=== PATIENT | female | born 1955 | race Caucasian/White ===

== ENCOUNTER 2024-09-30 06:54 | Emergency (ER) | payer OTHER, SELFPAY ==
--- NOTE | ~2024-09-30 | US_ITS ---
EXAMINATION: US pelvic complete DATE: 09/30/2024 08:40 INDICATION: Postmenopausal vaginal bleeding. TECHNIQUE: Multiple transabdominal and transvaginal sonographic images of the pelvis were obtained. COMPARISON: None. FINDINGS: TRANSABDOMINAL ULTRASOUND: The uterus measures 8.0 x 3.3 x 4.4 cm. There is no free fluid in the pelvis. TRANSVAGINAL ULTRASOUND: The endometrial complex measures 16 mm in thickness. There are nabothian cysts in the cervix. The rig ht ovary is not visualized. The left ovary is not visualized. IMPRESSION: 1. Thickened endometrial complex. The differential diagnosis includes endometrial hyperplasia, polyp, and carcinoma. Biopsy is recommended. Reviewed, dictated and finalized at location [] IMPRESSION: 1. Thickened endometrial complex. The differential diagnosis includes endometri al hyperplasia, polyp, and carcinoma. Biopsy is recommended.
[2024-09-30 07:04] VITALS: BP 159/70; PULSE 78; RESP 20; TEMP 36.7; O2SAT 98
[2024-09-30 07:53] LABS: Basophils Percent Auto 0.3 % (0.2-1.2); Eosinophils Absolute Auto 0.1 K/mm3 (0-0.3); Eosinophils Percent Auto 0.9 % (0-4.4); Hematocrit 48.2 % (37.0-47.0); Hemoglobin 15.6 g/dL (12.0-15.0); Immature Granulocyte Absolute 0.05 K/mm3 (0.00-0.031); Immature Granulocyte Percent A 0.5 % (0-0.5); Mean Corpuscular HGB Conc 32.4 g/dl (32-36); Mean Corpuscular Hemoglobin 29.3 pg (26-34); Mean Corpuscular Volume 90.6 fl (80-100); Monocytes Absolute Auto 0.5 K/mm3 (0.1-0.6); Neutrophils Absolute Auto 5.9 K/mm3 (1.3-6.7); Neutrophils Percent Auto 63.3 % (45.5-73.1); Platelet Count Result 200 k/mm3 (150-375); Red Blood Count 5.32 M/mm3 (4.2-5.4); Red Cell Distribution Width 14.4 % (11.5-14.5); White Blood Count 9.3 K/mm3 (4.5-10.0)
[2024-09-30 08:11] LABS: Alanine Aminotransferase 18 U/L (6-35); Albumin Level 4.3 g/dL (3.5-5.1); Alkaline Phosphatase 60 U/L (38-126); Anion Gap 8 mmol/L (4-12); Aspartate Amino Transferase 18 U/L (14-36); Bilirubin,Total 0.5 mg/dL (0.2-1.3); Blood Urea Nitrogen 15 mg/dL (7-17); Calcium 9.3 mg/dL (8.4-10.2); Carbon Dioxide 29 mmol/L (22-30); Chloride 102 mmol/L (98-107); Estimated CRCL calculation 113 ml/min; Estimated Glomerular Filt Rate > 60; Glucose 143 mg/dL (65-110); Potassium 3.9 mmol/L (3.4-5.0); Sodium 139 mmol/L (137-145)
[2024-09-30 08:14] LABS: INR 0.9; Prothrombin Time 12.7 Seconds (11.1-14.7)
[2024-09-30 08:17] LABS: Partial Thromboplastin Time 28.9 Seconds (22.3-36.8)
--- NOTE | 2024-09-30 08:59 | ED.GENADULT ---
HPI - General Adult General Chief complaint: Vaginal Bleeding Stated complaint: no cycle in 15 years; bloody discharge Time Seen by Provider: 09/30/24 07:02 History of Present Illness HPI narrative: 69-year-old female presenting to the emergency department for evaluation for vaginal bleeding that started this morning. Patient is 15 years postmenopausal and does not have a current OB Gyne. Patient states this morning when she went to use the bathroom she noticed some blood after wiping, patient noticed more blood in the bowl and patient stated the blood was vaginal night urinary. Patient had episode last week where she did pass some vaginal mucus and felt a pain similar to ovulation. Related Data Allergies Allergy/AdvReac Type Severity Reaction Status Date / Time adhesive tape AdvReac Other Verified 09/30/24 07:21 iohexol AdvReac Hives Verified 09/30/24 07:21 [From contrast - CT, X-RAY] Review of Systems Review of Systems: All systems reviewed & are unremarkable except as noted in HPI and below Exam Narrative: APPEARANCE: Well appearing, no pain, no distress, well-nourished. HEAD: normocephalic, atraumatic. EYES: PERRLA/EOMI, conjunctivae clear. NOSE: Normal no drainage EARS:TMS clear with good light reflex. THROAT: Pharynx clear, no exudate. NECK: Supple. No adenopathy, no masses. RESPIRATORY: Airway patent, respirations nonlabored. Clear to auscultation bilaterally, no rales, rhonchi, wheezing. CARDIOVASCULAR: Regular rate and rhythm without murmurs rubs or gallops. ABDOMINAL: Soft, nontender, nondistended, normal bowel sounds MUSCULOSKELETAL: Moves all extremities. Strength/ROM intact, No edema, No calf tenderness. NEURO: Alert. Cranial nerves II through XII intact. Grossly intact SKIN: Warm, dry. Normal Color Course Course Emergency Course: Patient was updated the results of the workup and patient will have close outpatient follow-up with OB Gyne. Vital Signs Vital signs: Vital Signs Temperature 98.1 F 09/30/24 07:04 Pulse Rate 78 09/30/24 07:04 Respiratory Rate 20 09/30/24 07:04 Blood Pressure 159/70 H 09/30/24 07:04 Pulse Oximetry 98 09/30/24 07:04 Oxygen Delivery Room Air 09/30/24 07:04 Temperature 98.1 F 09/30/24 07:04 Pulse Rate 78 09/30/24 07:04 Respiratory Rate 20 09/30/24 07:04 Blood Pressure 159/70 H 09/30/24 07:04 Pulse Oximetry 98 09/30/24 07:04 Oxygen Delivery Room Air 09/30/24 07:04 Medical Decision Making MDM Narrative Medical decision making narrative: 69-year-old female presented to the emergency department for evaluation for vaginal bleeding. Patient is afebrile with no leukocytosis and hemoglobin of 15.6. No acute abnormalities on her CMP and INR is 0.9. Ultrasound does show thickened endometrial lining versus polyp versus carcinoma. Patient was updated the results of the labs and ultrasound and patient was strongly encouraged to have close follow-up with OB Gyne and was educated on reasons to return to the emergency department. All questions concerns were addressed. Differential Diagnosis Differential Diagnosis: Carcinoma, polyp, infection, abscess, hyperplasia, anemia Vital Signs Vital Signs: Vital Signs Temperature 98.1 F 09/30/24 07:04 Pulse Rate 78 09/30/24 07:04 Respiratory Rate 20 09/30/24 07:04 Blood Pressure 159/70 H 09/30/24 07:04 Pulse Oximetry 98 09/30/24 07:04 Oxygen Delivery Room Air 09/30/24 07:04 Temperature 98.1 F 09/30/24 07:04 Pulse Rate 78 09/30/24 07:04 Respiratory Rate 20 09/30/24 07:04 Blood Pressure 159/70 H 09/30/24 07:04 Pulse Oximetry 98 09/30/24 07:04 Oxygen Delivery Room Air 09/30/24 07:04 Lab Data Lab results reviewed: Yes I reviewed the patient's lab results. 09/30/24 07:47 09/30/24 07:46 Labs: Lab Results 09/30/24 09/30/24 Range/Units 07:46 07:47 WBC 9.3 (4.5-10.0) K/mm3 RBC 5.32 (4.2-5.4) M/mm3 Hgb 15.6 H (12.0-15.0) g/dL Hct 48.2 H (37.0-47.0) % MCV 90.6 (80-100) fl MCH 29.3 (26-34) pg MCHC 32.4 (32-36) g/dl RDW 14.4 (11.5-14.5) % Plt Count 200 (150-375) k/mm3 MPV 9.0 (7.4-10.4) fl Immature Gran % (Auto) 0.5 (0-0.5) % Neut % (Auto) 63.3 (45.5-73.1) % Lymph % (Auto) 30.0 (18.3-44.2) % [place] % (Auto) 5.0 (2.6-8.5) % Eos % (Auto) 0.9 (0-4.4) % Baso % (Auto) 0.3 (0.2-1.2) % Lymph # (Auto) 2.80 (0.9-3.2) K/mm3 [place] # (Auto) 0.5 (0.1-0.6) K/mm3 Eos # (Auto) 0.1 (0-0.3) K/mm3 Baso # (Auto) 0.0 (0.0-0.1) K/mm3 Abs Immat Gran (auto) 0.05 H (0.00-0.031) K/mm3 Absolute Neuts (auto) 5.9 (1.3-6.7) K/mm3 Absolute Nucleated RBC 0.000 (0.0-0.012) K/mm3 Nucleated RBC % 0.0 (0.0-0.2) % PT 12.7 (11.1-14.7) Seconds INR 0.9 APTT 28.9 (22.3-36.8) Seconds Sodium 139 (137-145) mmol/L Potassium 3.9 (3.4-5.0) mmol/L Chloride 102 (98-107) mmol/L Carbon Dioxide 29 (22-30) mmol/L Anion Gap 8 (4-12) mmol/L BUN 15 (7-17) mg/dL Creatinine 0.50 L (0.7-1.0) mg/dL Estim Creat Clear Calc 113 ml/min Estimated GFR > 60 (59 - ) Glucose 143 H (65-110) mg/dL Calcium 9.3 (8.4-10.2) mg/dL Total Bilirubin 0.5 (0.2-1.3) mg/dL AST 18 (14-36) U/L ALT 18 (6-35) U/L Alkaline Phosphatase 60 (38-126) U/L Total Protein 8.0 (6.3-8.2) g/dL Albumin 4.3 (3.5-5.1) g/dL Imaging Data Radiologist's impression: Impressions Pelvis Ultrasound 09/30/24 09:00 IMPRESSION: 1. Thickened endometrial complex. The differential diagnosis includes endometrial hyperplasia, polyp, and carcinoma. Biopsy is recommended. Discharge Plan Discharge Clinical Impression: Vaginal bleeding Patient Disposition: Home, Self-Care Condition: Stable Instructions: Antibiotic Form, Abnormal (Dysfunctional) Uterine Bleeding (ED) Additional Instructions: Drink plenty of fluids. Follow a well-balanced diet. Have close follow-up with OB Gyne for an anticipated endometrial biopsy. If you have any worsening symptoms then please call or return to the emergency department. Have close follow-up with your primary care physician. Follow-up/Referrals: Rahat Jean Baptiste MD [Physician] - UNKNOWN,DOCTOR [Primary Care Provider] -
== END 2024-09-30 09:45 | disposition home or self-care (01) ==
PROVIDERS: Emergency Provider Emergency Medicine
DX: N95.0 Postmenopausal bleeding (principal); R93.89 Abnormal findings on diagnostic imaging of other specified body structures
CPT/HCPCS: 36415; 76856; 80053; 85025; 85610; 85730; 99284

== ENCOUNTER 2024-10-08 00:39 | Day surgery (SDC) | payer OTHER, SELFPAY ==
[2024-10-07 12:22] VITALS: BMI 36.9
--- NOTE | 2024-10-07 12:45 | PC.NURSE ---
Report to the Outpatient Waiting Room, entrance under the green pavilion located off [facility], at time ___8:45AM____ on date ___10/08/24____. Planned Procedure Time: ___10:45AM .? Time changes happen often and if your time is changed the preop area will call you the afternoon before. - You and your visitor will be asked to self-screen and do not enter if you have any COVID symptoms. Please call surgeon if you need to reschedule. - A mask is optional within the hospital at this time. Patients may have clear liquids (water, carbonated beverages, clear teas, apple juice) until 3 hours prior to surgery with a maximum of 20 ounces. - No food from midnight until time of surgery and no smoking - Infants may have breast milk until 4 hours before surgery, formula 6 hours prior to surgery. - Children will be allowed to drink immediately following surgery.? If applicable, please bring a bottle or sippy cup to assist with drinking. Juice, water, soda, and popsicles are readily available.? For infants on formula, please bring formula the day of surgery.? Pacifiers are allowed. Take only the following medications with a SIP of water on the morning of surgery: LEVOTHYROXINE, METOPROLOL DO NOT STOP ANY OF YOUR OTHER PRESCRIPTION MEDICATIONS PRIOR TO SURGERY EXCEPT THE FOLLOWING Medications to discontinue per physician HOLD ALL VITAMINS/SUPPLEMENTS STARTING NOW PER ANESTHESIA. Date to take last dose 10/08/24 Please no make-up, nail kinyarwanda, hairspray, perfume, deodorant, or body powder the day of surgery.? No jewelry (including any body piercings) or valuables the day of surgery, leave them at home.? Please take a shower or bath the night before, or the morning of, surgery with an antibacterial soap.? Wear comfortable, loose fitting clothing.? Children are encouraged to wear pajamas. - Jewelry must be removed prior to entering the operating room.? Rings and piercings that are not removed may be cut off. - The hospital will not accept responsibility for valuables.? - Please leave all valuables, including medications, at home the day of surgery. If you are going home after surgery, a licensed driver helper must drive you home.? - NO public transportation without another adult if you receive anesthesia. - We recommend that an adult stay with you for 24 hours following discharge. - We also recommend that you do not drive, make important decision, drink alcoholic beverages, or take any drugs that were not prescribed by your health care provider for at least 24 hours after your discharge time. For Pediatric surgeries, we recommend two adults accompany the child home. Follow any additional instructions given to you from your surgeon. Telephone instructions given to ____PATIENT and asked if any additional questions and then verbalized understanding. Patient advised to call surgeon office or pre surgery nurse liaison [phone] if any additional questions.
--- NOTE | 2024-10-08 07:20 | WPDHPUPDATE1 ---
History and Physical Update Update Date/Time: 10/08/24 07:20 History and Physical has been reviewed, including an updated exam of the patient. There are NO changes in the patient's condition. Risks, benefits, and alternatives have been discussed and questions answered. Patient agrees to proceed with procedure.
[2024-10-08 08:46] VITALS: BP 141/75; PULSE 71; RESP 16; TEMP 36.2; O2SAT 96
[2024-10-08 08:50] VITALS: BMI 36.8
--- NOTE | 2024-10-08 09:19 | WPDANESEPPF ---
Anes - Initial Pre Proc Eval Procedure: Operation Date: 10/08/24 10:45 Proposed Procedures p Hysteroscopy Dilation and Curettage - Rahat Jean Baptiste MD Date/Time: 10/08/24 09:19 Surgeon: Rahat Jean Baptiste MD Pre Op Diagnosis: post menopausal bleeding Patient Data Age: 69 Gender: F Height: 1.7 m Weight: 107 kg Allergies Allergy/AdvReac Type Severity Reaction Status Date / Time adhesive tape AdvReac REDNESS, Verified 10/07/24 12:13 SKIN IRRITATION iohexol AdvReac Hives Verified 10/07/24 12:13 [From contrast - CT, X-RAY] Home Medications Medication Instructions Recorded Confirmed Type aspirin 325 mg tablet 325 mg PO DAILY 10/02/24 10/07/24 History cholecalciferol (vitamin D3) 50 See Rx Instructions .Route .COMPLEX 10/02/24 10/07/24 History mcg (2,000 unit) capsule icosapent ethyl 1 gram capsule 2 g PO BID 10/02/24 10/07/24 History (Vascepa) levothyroxine 150 mcg tablet 150 mcg PO DAILY 10/02/24 10/07/24 History lisinopril 40 mg tablet 40 mg PO QAM 10/02/24 10/07/24 History metoprolol tartrate 25 mg tablet 12.5 mg PO BID 10/02/24 10/07/24 History montelukast 10 mg tablet 10 mg PO DAILY 10/02/24 10/07/24 History rosuvastatin 40 mg tablet 40 mg PO DAILY 10/02/24 10/07/24 History nitrofurantoin 100 mg PO Q12H #14 caps 10/06/24 10/07/24 Rx monohydrate/macrocrystals 100 mg capsule (Macrobid) cetirizine 10 mg capsule (Zyrtec) 10 mg PO DAILY 10/07/24 10/07/24 History tkrgdplaszg-[id number]-hmj C-Mn 500 2 cap PO HS 10/07/24 10/07/24 History mg-400 mg capsule indapamide 1.25 mg tablet 1.25 mg PO QAM 10/07/24 10/07/24 History Patient hx anesthesia problems: none Family hx anesthesia problems: none Results Review: All pre-operative results and documents have been reviewed as part of the pre-operative evaluation. PMFSH Past Medical History Medical History (Updated 10/08/24 @ 09:19 by Florentino Tripp MD) CAD (coronary artery disease) High cholesterol History of hypertension Thyroid disease Surgical History Surgical History H/O thyroidectomy (~06/2022) S/P triple vessel bypass (2018) Family History Family History Mother Heart disease Sibling Acute myocardial infarction, Onset Age: 40 brother COPD (chronic obstructive pulmonary disease) Grandparent COPD (chronic obstructive pulmonary disease) Social History Social History Smoking packs per day: 0.30 Smoking cigarettes per day: 6.0 Years smoked: 15 Smoking pack-years: 4.50 Smoking status: Former smoker Tobacco type: cigarettes Second hand tobacco smoke exposure: No Smoking end date: 06/01/12 Alcohol intake: current Alcohol use details: occassional Substance use: never Substance use type: does not use Do You Feel Safe in your Home?: Yes Lack of Transportation: No Lack of Food: Never True Current Housing: I Have Housing Concerned About Future Housing: No Difficulty Paying Gas/Electric Bills: No Difficulty Paying for Meds: No Currently Unemployed: No Education: High School Diploma/GED Difficulty w/ Childcare or Family Care: No Living arrangements: with family Additional living arrangements comments: SPOUSE Occupation/Education: occupation 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 [employer] Gender identity (if verbalized by the patient): Female Sexual Orientation (if Verbalized by the Patient): Lesbian, Tony, or Homosexual Spiritual care concerns: No Anes - Eval Final PreProcedure Day of Procedure 10/08/24 09:19 Patient weight: obese Heart: regular rate and rhythm Lungs: clear to auscultation Airway: Mallampati scale class II Neurological: alert and oriented Last oral intake: >/= 8 hours ASA classification: III Emergent: no Anesthetic plan: proceed Anesthesia type and monitoring: general GIVS Results Review: All pre-operative results and documents have been reviewed as part of the pre-operative evaluation. Informed Consent: The patient's anesthetic plan and its attendant risks and benefits were discussed with the patient/family/POA. Questions were solicited and answers provided to the satisfaction of the patient/family/POA.
[2024-10-08] MEDS: LACTATED RINGERS 1,000 ML 30 ML IV CONT (09:50)
[2024-10-08] MEDS: ACETAMINOPHEN 500 MG TABLET 1000 MG PO (09:57)
--- NOTE | 2024-10-08 11:02 | W.PM.PROC2 ---
Procedure Note - Detailed Date of Procedure 10/08/24 Pre-op Diagnosis 1. Post menopausal bleeding Post-op Diagnosis Same (2. Endometrial polyp) Procedure Performed 1. Hysteroscopy with uterine curettings 2. Hysteroscopic polypectomy Surgeon Rahat Jean Baptiste MD Anesthesia MAC Findings 1. Endometrial polyp 2. Hypervascularity throughout cavity Description of Procedure Patient prepped and draped usual manner for this procedure. Cervix was dilated to allow the hysteroscope to be placed. Findings were noted as above. Using the shaving instrument the polyp was removed as well as a superficial sampling of all 4 quadrants of the entire cavity. At this point the procedure was considered terminated patient was sent to recovery room in stable condition. Estimated Blood Loss 10 Drains No Packing No Pathology Yes Complications No immediate complications Condition Stable Disposition PACU [facility] Billing Surgery - Charge Forward: Surgery Billing
[2024-10-08 11:08] VITALS: BP 124/67; PULSE 67; RESP 14; O2SAT 96
[2024-10-08 11:35] VITALS: BP 116/82; PULSE 52; RESP 16
[2024-10-08] MEDS: oxyCODONE HCL (*CRX) 5 MG TAB IR PO (11:48)
[2024-10-08 12:05] VITALS: BP 126/64; PULSE 60; RESP 16
[2024-10-08 12:31] VITALS: BP 129/62; PULSE 49; RESP 18
== END 2024-10-08 12:34 | disposition home or self-care (01) ==
PROVIDERS: PCP Internal Medicine; Visit Provider Obstetrics & Gynecology
PROC: 0U5B8ZZ Destruction of Endometrium, Via Natural or Artificial Opening Endoscopic (ICD-10-PCS; CPT 58563; principal; 2024-10-08 10:45)
DX: C54.1 Malignant neoplasm of endometrium (principal); E78.00 Pure hypercholesterolemia, unspecified; I10 Essential (primary) hypertension; E07.9 Disorder of thyroid, unspecified; I25.10 Atherosclerotic heart disease of native coronary artery without angina pectoris; E66.9 Obesity, unspecified; Z68.36 Body mass index [BMI] 36.0-36.9, adult; Z79.82 Long term (current) use of aspirin; Z98.890 Other specified postprocedural states; Z95.1 Presence of aortocoronary bypass graft; Z87.891 Personal history of nicotine dependence; Z86.79 Personal history of other diseases of the circulatory system; Z82.49 Family history of ischemic heart disease and other diseases of the circulatory system
CPT/HCPCS: 58558; 88305; 88342; A9270; J2003; J2250; J2704; J3010; J7120

== ENCOUNTER 2025-03-07 10:47 | Emergency (ER) | payer OTHER, SELFPAY ==
[2025-03-07] VITALS (20 sets, daily range): BP systolic 104–150; BP diastolic 52–69; PULSE 55–72; RESP 14–20; TEMP 36.6; O2SAT 92–98
--- NOTE | ~2025-03-07 | XR_ITS ---
XR chest 2V Ordering provider: Ronald Merritt History: 70 years Female with . CP . Comparison: None. FINDINGS: MEDIASTINUM: The cardiac silhouette is not enlarged. Postoperative changes are seen in the mediastinum. LUNGS: No infiltrates, effusions or pneumothorax. OTHER: No free air under the diaphragm. IMPRESSION: No acute cardiopulmonary pathology. Reviewed, dictated and finalized at location A.
--- NOTE | 2025-03-07 10:49 | ECG_ITS ---
Test Date: 2025-03-07 10:55:11 Measurements Intervals [place] Rate: 69 P: 69 ID: [id number] QRS: -15 QRSD: 132 T: 42 QT: 417 QTc: 448 Interpretive Statements SINUS RHYTHM RIGHT BUNDLE BRANCH BLOCK CONSIDER ANTERIOR INFARCT, AGE INDETERMINATE CONSIDER INFERIOR INFARCT, AGE INDETERMINATE BASELINE ARTIFACT- II, III, V4-V6 ABNORMAL ECG No previous ECG available for comparison Electronically Signed On 03-07-2025 12:10:16 CDT by Moses Myers D.O.
--- OUTSIDE RECORDS SUMMARY | 2025-03-07 10:50 | XMS_ITS | Encounter Summary ---
Author Organization [facility] Address [address] [place] [address] Care Team Providers Care Contract Officer Name Role Phone Álvaro Darby MD Primary Care Provider [phone] Encounter Details Date Type Department Care Team (Late st Contact Info) Description 03/03/2024 Lab Requisition [facility] - DermPath Lab [address] [place] [address] Danielle Wheat MD [address] [place] [address] Social History Tobacco Use Types Packs/Day Years Used Date Smoking Tobacco: Former Smokeless Tobacco: Never Sex and Gender Information Value Date Recorded Sex Assigned at Not on file Gender Identity Not on file Sexual Orientation Not on file documented as of this encounter Plan of Treatment Not on file documented as of this encounter Procedures Procedure Name Priority Date/Time Associated Diagnosis Comments DERMATOPATHOLOGY Routine 03/03/2024 2:33 PM CDT documented in this encounter Results * DERMATOPATHOLOGY (03/03/2024 2:33 PM CDT) Case Report Dermatopathology Report Case: [id number] Authorizing Provider: Danielle Wheat MD Collected: 03/03/2024 02:33 PM Ordering Location: [facility] - Received: 03/04/2024 12:21 PM DermPath Lab Pathologist: Catrachita Hall MD Specimen: Skin, left mosque 1:29 PM CDT DERMATOPATHOLOGY LABORATORY Final Diagnosis Specimen A. SKIN, left mosque: SQUAMOUS CELL CARCINOMA, MODERATELY DIFFERENTIATED (C44.329) 1:29 PM CDT DERMATOPATHOLOGY LABORATORY Clinical History R/O NMSC, Growing, Irritated 1:29 PM CDT DERMATOPATHOLOGY LABORATORY Gross Description Specimen A: Received is one formalin filled container labeled with the patient's name and designated left mosque. The specimen consists of a shave biopsy measuring 7x6x2 mm. Jar 0. 1:29 PM CDT DERMATOPATHOLOGY LABORATORY Microscopic Description Specimen A. SKIN, left mosque: There are nests of squamous epithelial cells which arise from the ulcerated epidermis and extend into the dermis. The nests have only focal central keratinization and rare horn feliciano formation. 1:29 PM CDT DERMATOPATHOLOGY LABORATORY Disclaimer An external and internal positive and negative controls are appropriate for the histochemical, immunohistochemical and immunofluorescence stain(s) in this case (if any), except where stated explicitly. The performance characteristics of the stain(s) cited in this report were developed and its performance characteristic determined by the Dermatopathology Laboratory at [facility], directed by Dr. Delma Brewster. These tests need not be, and therefore are not, approved by the [place] Food and Drug Administration. The tests are used for clinical purposes. Billing Codes Specimen Charges Stain Charges 96982 1 1:29 PM CDT DERMATOPATHOLOGY LABORATORY Embedded Images 1:29 PM CDT DERMATOPATHOLOGY LABORATORY Pathology/Cytolo gy TISSUE SPECIMEN FROM SKIN / Unknown 03/03/2024 2:33 PM CDT 03/04/2024 12:21 PM CDT Danielle Wheat MD LAB - PATHOLOGY/CYT OLOGY ORDERABLES DERMATOPATHOLOGY LABORATORY [facility] - Department of Dermatology [address], [address] [phone] documented in this encounter Visit Diagnoses Not on filedocumented in this encounter Care Teams Contract Officer Relationship Specialty Start Date End Date Álvaro Darby MD PCP - General Internal Medicine 03/07/17 documented as of this encounter
--- OUTSIDE RECORDS SUMMARY | 2025-03-07 10:50 | XMS_ITS | Encounter Summary ---
Author Organization [facility] Address [address] [place] [address] Phone Care Team Providers Care Barrel Charrer Name Role Phone Álvaro Darby MD Primary Care Provider [phone] Fabian Matute MD Unavailable [phone] Álvaro Darby MD Primary Care Provider [phone] Rahat Jean Baptiste MD Unavailable [phone] Encounter Details Date Type Department Care Team (Late st Contact Info) Description 01/22/2018 Orders Only [facility] ProviderNorm MD [address] [place] [address] Social History Tobacco Use Types Packs/Day Years Used Date Smoking Tobacco: Former Cigarettes 0.5 35 0 06/24/1977 - 06/24/2012 Smokeless Tobacco: Never Comments:Smoking History Pac ks/day: 0.5 Packs Alcohol Use Standard Drinks/Week Comments Yes 0 (1 standard drink = 0.6 oz pur e alcohol) Comments No Sex and Gender Information Value Date Recorded Sex Assigned at Not on file Legal Sex Female 11:50 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 us Historical Provider LAB BLOOD ORDERABLES Digna l Result documented in this encounter Visit Diagnoses Not on filedocumented in this encounter Additional Health Concerns Infection Onset Date Last Indicated Resolved Time COVID: Suspected 11/02/2021 11/02/2021 11/02/2021 8:45 AM MONEY ROOM SUPERVISOR COVID19 11/02/2021 11/02/2021 11/16/2021 3:05 AM MONEY ROOM SUPERVISOR COVID: Recovered Comment:Added based on recent COVID infection. 11/16/2021 01/12/2022 03/16/2022 3:05 AM C DT COVID: Suspected 05/27/2024 05/27/2024 05/27/2024 3:48 PM CDT documented as of this encounter Care Teams Barrel Charrer Relationship Specialty Start Date End Date Álvaro Darby MD PCP - General 03/01/17 10/08/24 Álvaro Darby MD [address] [facility] [address] [place] [address] PCP - General Internal Medicine 10/09/24 Fabian Matute MD [address] [place] [address] [facility] [address] [place] [address] Consulting Physician Endocrinology 02/07/22 Rahat Jean Baptiste MD [address] [facility] [address] [place] [address] Referring Physician Obstetrics and Gynecology 12/23/24 documented as of this encounter
--- OUTSIDE RECORDS SUMMARY | 2025-03-07 10:50 | XMS_ITS | Encounter Summary ---
Author Organization [facility] Address [address] [place] [address] Care Team Providers Care Check Writer Name Role Phone Álvaro Darby MD Primary Care Provider [phone] Encounter Details Date Type Department Care Team (Late st Contact [facility]) Description 03/04/2025 Lab Requisition [facility] - DermPath Lab [address] [facility] [place] [address] Raquel Negrete MD [address] [facility] [address] [place] [address] Social History Tobacco Use Types Packs/Day Years Used Date Smoking Tobacco: Former Smokeless Tobacco: Never Sex and Gender Information Value Date Recorded Sex Assigned at Not on file Gender Identity Not on file Sexual Orientation Not on file documented as of this encounter Plan of Treatment Pending Results Name Type Priority Associated Diagnoses Date /Time DERMATOPATHOLOGY Pathology Cytology Routine 03/04/2025 10:37 AM CDT documented as of this encounter Visit Diagnoses Not on filedocumented in this encounter Care Teams Check Writer Relationship Specialty Start Date End Date Álvaro Darby MD PCP - General Internal Medicine 03/07/17 documented as of this encounter
--- OUTSIDE RECORDS SUMMARY | 2025-03-07 10:50 | XMS_ITS | Encounter Summary ---
Author Organization [facility] [employer] [facility] Address [address] [place] [address] Phone Care Team Providers Care Balloon Artist Name Role Phone Álvaro Darby MD Primary Care Provider [phone] Fabian Matute MD Unavailable [phone] Álvaro Darby MD Primary Care Provider [phone] Rahat Jean Baptiste MD Unavailable [phone] Encounter Details Date Type Department Care Team (Late st Contact Info) Description 12/16/2017 Orders Only [facility] ProviderNorm MD [address] [place] [address] Social History Tobacco Use Types Packs/Day Years Used Date Smoking Tobacco: Former Cigarettes 0.5 35 0 06/24/1977 - 06/24/2012 Smokeless Tobacco: Never Comments:Smoking History Pac ks/day: 0.5 Packs Alcohol Use Standard Drinks/Week Comments Yes 0 (1 standard drink = 0.6 oz pur e alcohol) Comments Unknown Sex and Gender Information Value Date Recorded Sex Assigned at Not on file Legal Sex Female 11:50 PM [employer] Gender Identity Female 09/15/2021 10:22 AM CDT Sexual Orientation Lesbian 09/15/2021 10 :22 AM CDT documented as of this encounter Plan of Treatment Not on file documented as of this encounter Procedures Procedure Name Priority Date/Time Associated Diagnosis Comments DISCHARGE 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 us Historical Provider LAB BLOOD ORDERABLES Digna l Result documented in this encounter Visit Diagnoses Not on filedocumented in this encounter Additional Health Concerns Infection Onset Date Last Indicated Resolved Time COVID: Suspected 11/02/2021 11/02/2021 11/02/2021 8:45 AM [employer] COVID19 11/02/2021 11/02/2021 11/16/2021 3:05 AM [employer] COVID: Recovered Comment:Added based on recent COVID infection. 11/16/2021 01/12/2022 03/16/2022 3:05 AM C DT COVID: Suspected 05/27/2024 05/27/2024 05/27/2024 3:48 PM CDT documented as of this encounter Care Teams Balloon Artist Relationship Specialty Start Date End Date Álvaro Dabry MD PCP - General 03/01/17 10/08/24 Álvaro Darby MD [address] [facility] [address] [address] PCP - General Internal Medicine 10/09/24 Fabian Matute MD [address] [place] [address] [facility] [address] [place] [address] Consulting Physician Endocrinology 02/07/22 Rahat Jean Baptiste MD [address] [facility] [address] [place] [address] Referring Physician Obstetrics and Gynecology 12/23/24 documented as of this encounter
--- OUTSIDE RECORDS SUMMARY | 2025-03-07 10:50 | XMS_ITS | Referral Summary ---
Author Organization [facility] Address [address] [place] [address] Care Team Providers Care [employer] Station Service Attendant Name Role Phone Fabian Matute MD Unavailable [phone] Earle Darby MD Primary Care Provider [phone] Rahat Jean Baptiste MD Unavailable [phone] Encounters Date Type Department Care Team Description 03/02/2025 1:30 PM CDT Office Visit [facility] Primary Care at [facility] [address] [phone] Earle Darby MD Healthcare maintenance (Primary Dx); Primary hypertension; Type 2 diabetes mellitus with hyperlipidemia (HCC); Hyperlipidemia, unspecified hyperlipidemia type; Coronary artery disease involving [place] coronary artery of [place] heart with angina pectoris; Postoperative hypothyroidism; Heart murmur 01/11/2025 6:10 AM MATCHER OPERATOR Lab [address] [phone] Screening for blood disease; Type 2 diabetes mellitus with hyperlipidemia (HCC); Postoperative hypothyroidism 12/24/2024 3:44 PM MATCHER OPERATOR - 12/24/2024 11:59 PM MATCHER OPERATOR Hospital Encounter [facility] [address] [place] [id number] Endometrial cancer (HCC) Discharge Disposition: Discharge to home or self care 12/24/2024 Orders Only [facility] Gynecologic [facility]) [address] [place] [address] [place] [address] Swetha Kurtz RN Endometrial cancer (HCC) (Primary Dx) 12/24/2024 3:00 PM MATCHER OPERATOR Office Visit [facility] Obstetrics and Gynecology [address] [facility] [address] [place] [address] [place] [phone] Lexy Wagner NP Post-operative state (Primary Dx); Endometrial cancer (HCC) 12/10/2024 9:30 AM MATCHER OPERATOR Office Visit [facility] Cardiology [address] [facility] [address] 8[address] [place] [address] [place] [phone] Ronald Craig MD S/P CABG (coronary artery bypass graft) (Primary Dx); Essential hypertension; Hyperlipidemia, unspecified hyperlipidemia type from Last 3 Months Allergies Active Allergy Reactions Criticality Noted Date Comments Adhesive Tape-Silicones Other (See comments) Low TEARS SKIN. Iodinated Contrast Media Hives,Rash Medium 04/18/2022 Iodine And Iodide Containing Products Hives,Rash Medium Reaction: Rash, Medications cholecalcifero l (VITAMIN D3) 2,000 unit capsule 1 po q day 0 0 10/13/20 13 Active glucosamine HCl 1,500 mg tabletIndicati ons:supplement Take 3,000 mg by mouth nightly Active aspirin 81 mg tabletIndicati ons:acute myocardial infarction,pre vention of thrombosis Take 1 tablet (81 mg total) by mouth every morning Active valACYclovir (VALTREX) 1 gram tabletIndicati ons:Prophylaxi s, Medical Take 2 tablets (2,000 mg total) by mouth as needed (cold sores) Active calcium carbonate/jesenia thicone (MAALOX ADVANCED ORAL)Indicatio ns:GERD Take 30 mL by mouth as needed (acid reflux) Active cetirizine (ZyrTEC) 10 mg tabletIndicati ons:Allergic Rhinitis Take 1 tablet (10 mg total) by mouth every morning Active metoprolol tartrate (LOPRESSOR) 25 mg immediate release tablet TAKE ONE-HALF TABLET BY MOUTH TWICE DAILY 90 tablet 3 07/17/20 24 Active levothyroxine (SYNTHROID) 150 mcg tablet Take 1 tablet (150 mcg total) by mouth binding bench worker before breakfast 90 tablet 3 07/20/20 24 Active Vascepa 1 gram capsule Take 2 capsules (2 g total) by mouth 2 (two) times a day 400 capsule 3 10/26/20 24 Active oxyCODONE (ROXICODONE) 5 mg immediate release tabletIndicati ons:Pain Take 1 tablet (5 mg total) by mouth every 4 (four) hours as needed for pain 15 tablet 11/16/20 24 Active polyethylene glycol (MIRALAX) 17 gram/dose bulk powder Take 17 g by mouth 2 (two) times a day for 7 days 238 g 11/16/20 24 Active lisinopriL (PRINIVIL,ZEST RIL) 40 mg tablet TAKE 1 TABLET BY MOUTH IN THE MORNING 90 tablet 3 12/17/19 25 Active montelukast (SINGULAIR) 10 mg tablet TAKE 1 TABLET BY MOUTH AT NIGHT 90 tablet 3 02/03/20 25 Active indapamide (LOZOL) 1.25 mg tablet TAKE 1 TABLET BY MOUTH IN THE MORNING 90 tablet 3 02/03/20 25 Active rosuvastatin (CRESTOR) 40 mg tablet TAKE 1 TABLET BY MOUTH DAILY 90 tablet 3 02/19/20 25 Active rosuvastatin (CRESTOR) 40 mg tablet TAKE 1 TABLET BY MOUTH DAILY 100 tablet 1 08/28/20 24 025 Discontinued Active Problems Problem Noted Date Diagnosed Date Heart murmur 03/02/2025 Endometrial cancer 11/02/2024 Cancer Staging:Pathologic stage from 11/16/2024:FIGO Stage IA(pT1a, pN0(sn), cM0) - Signed by Elena Monreal MD on 11/26/2024 Polycythemia 12/06/2022 Assessment & Plan (12/06/2022 9:11 AM MATCHER OPERATOR): Repeat CBC in 6 months. Class 2 obesity with body ma ss index (BMI) of 35.0 to 35.9 in adult 12/06/2022 Assessment & Plan (12/06/2022 9:25 AM MATCHER OPERATOR): Patient is encouraged to lose weight with a combination of caloric reduction and increased exercise. Bilateral high frequency sensorineural hearing l oss 06/15/2022 Tinnitus of left ear 06/15/2022 Postoperative hypothyroidism 06/07/2022 Assessment & Plan (11/01/2024 8:00 PM MATCHER OPERATOR): Chronic stable Recommend to continue current dose of levothyroxine Recheck thyroid function test every 6 months Assessment & Plan (07/20/2024 2:27 PM CDT): Continue current dose of levothyroxine check TSH before next visit adjust dose based on results. Also refer to endocrinology for history of thyroidectomy for papillary microcarcinoma. Assessment & Plan (01/20/2024 2:35 PM MATCHER OPERATOR): Continue current dose of levothyroxine check TSH and FT4 before next visit and adjust medication based on results. Refer back to endocrinology if needed. Follow-up with her surgeon as they direct and get definitive monitoring recommendations going forward. Assessment & Plan (04/08/2023 8:58 AM CDT): Patient is clinically euthyroid TSH was 0.26 on 09/12/22 Plan: Continue same dose of Levothyroxine The proper way of taking Levothyroxine reviewed with patient. Check TSH. I will adjust the dose based on lab results. Assessment & Plan (10/08/2022 8:35 AM MATCHER OPERATOR): Patient is clinically euthyroid TSH was 0.26 on 09/12/22 Plan: Continue same dose of Levothyroxine The proper way of taking Levothyroxine reviewed with patient. Check TSH next visit. I will adjust the dose based on lab results. Assessment & Plan (06/07/2022 12:09 PM CDT): Patient is clinically euthyroid TSH was 0.0 with normal free T4 on 05/26/22 Plan: Continue same dose of Levothyroxine The proper way of taking Levothyroxine reviewed with patient. Check TSH in 4-6 weeks I will adjust the dose based on lab results. Personal history of colonic polyps 06/06/2022 Overview (06/06/2022): Added automatically from request for surgery [id number] Papillary microcarcinoma of thyroid 06/05/2022 Overview (06/05/2022): S/p excision 05/2022 Assessment & Plan (11/01/2024 8:01 PM MATCHER OPERATOR): MNG s/p total thyroidectomy on 05/09/22 Micro-papillary thyroid cancer Patient recently had a thyroid ultrasound, noted stable findings Assessment & Plan (04/08/2023 9:14 AM CDT): MNG s/p total thyroidectomy on 05/09/22 Micro-papillary thyroid cancer - we will monitor - she will have thyroid ultrasound next month with Dr. Hernandez. Assessment & Plan (10/08/2022 8:35 AM MATCHER OPERATOR): MNG s/p total thyroidectomy on 05/09/22 Micro-papillary thyroid cancer - we will monitor - she will have thyroid ultrasound in one year with Dr. Hernandez. Assessment & Plan (06/07/2022 12:10 PM CDT): MNG s/p total thyroidectomy on 05/09/22 Micro-papillary thyroid cancer - we will monitor - she will have thyroid ultrasound in one year with Dr. Hernandez. Graves disease 04/17/2022 Overview (04/17/2022): Added automatically from request for surgery [id number] Chronic pain of left knee 12/05/2021 Overview (12/05/2021): Dr Virk (ortho): reported loose body in left knee which may need to be removed Assessment & Plan (07/17/2023 12:03 PM CDT): Suspect hamstring strain versus tendinitis with her recent increase activities. Rest ice stretching exercises and call back if no improvement for consideration of orthopedic referral for this as well as her lateral pain which may stem from reported loose body in her left knee. Assessment & Plan (12/05/2021 9:17 AM MATCHER OPERATOR): Probably loose body or meniscal tear based on history. Currently asymptomatic. Recommend orthopedic referral if worsens. Gastroesophageal reflux disease without esophagi tis 11/01/2020 Assessment & Plan (11/01/2020 5:12 PM MATCHER OPERATOR): If becomes more frequent, would recommend Pepcid daily. Rotator cuff tendinitis, right 10/02/2019 Subacromial bursitis 10/02/2019 S/P thyroidectomy 08/27/2018 Overview (06/05/2022): Path with 2 papillary microacarcinomas Assessment & Plan (07/17/2023 12:02 PM CDT): Continue levothyroxine check TSH and free T4 before next visit and follow-up with endocrinology and her surgeon as they direct. Assessment & Plan (12/06/2022 9:11 AM MATCHER OPERATOR): Follow-up with Dr. Matute as he directs. Assessment & Plan (06/05/2022 9:06 AM CDT): F/u with surgeon and Dr Matute as they direct. Assessment & Plan (12/05/2021 9:16 AM MATCHER OPERATOR): Seems fairly asymptomatic and will check TSH and free T4 before next visit and refer to Endocrinology if necessary. Assessment & Plan (05/30/2021 5:24 PM CDT): Currently asymptomatic and will check TSH and free T4 before next visit. Assessment & Plan (11/01/2020 5:12 PM MATCHER OPERATOR): Asymptomatic and thyroid levels are normal. Assessment & Plan (10/02/2019 2:50 PM CDT): Asymptomatic and thyroid levels normal. Assessment & Plan (01/29/2019 1:58 PM MATCHER OPERATOR): Asymptomatic and will check thyroid labs again before next visit. Benign paroxysmal positional vertigo 06/02/2018 Assessment & Plan (12/06/2022 9:12 AM MATCHER OPERATOR): Recommend meclizine as needed. Call back for vestibular therapy if needed. S/P CABG (coronary artery bypass graft) 01/27/20 18 Overview (01/27/2018): Three vessel January 2018. Urinary, incontinence, stress female 06/24/2017 Assessment & Plan (06/24/2017 4:36 PM CDT): Follow-up with Dr. Mtz as she directs. Vitamin D deficiency 04/17/2014 Overview (03/08/2017): Vitamin D deficiency Assessment & Plan (01/20/2024 2:35 PM MATCHER OPERATOR): Continue current supplementation and check level in 1 year. Assessment & Plan (07/17/2023 12:00 PM CDT): Continue vitamin-D supplementation check level before next visit Assessment & Plan (12/06/2022 9:10 AM MATCHER OPERATOR): Continue current supplementation and check level in 1 year. Assessment & Plan (12/05/2021 9:15 AM MATCHER OPERATOR): Continue current supplementation and check level in 1 year. Assessment & Plan (05/30/2021 5:23 PM CDT): Continue current supplementation and check level before next visit. Assessment & Plan (11/01/2020 5:11 PM MATCHER OPERATOR): Continue current supplementation and check level in 1 year. Assessment & Plan (10/02/2019 2:50 PM CDT): Continue current supplementation and check level in 1 year. Assessment & Plan (08/27/2018 10:27 PM CDT): Continue current supplementation and check level in 1 year. Assessment & Plan (06/24/2017 4:32 PM CDT): Continue current supplementation and check level in 1 year. Primary hypertension 04/17/2014 Overview (11/02/2024): Assessment & Plan (07/20/2024 2:28 PM CDT): Blood pressure is well controlled on indapamide, lisinopril, metoprolol at home and should call back if anything changes Assessment & Plan (01/20/2024 2:35 PM MATCHER OPERATOR): Blood pressure well controlled on indapamide and lisinopril metoprolol Assessment & Plan (07/17/2023 12:00 PM CDT): Blood pressure well controlled on indapamide, lisinopril, metoprolol Assessment & Plan (01/25/2022 12:34 PM MATCHER OPERATOR): Patient with history of CAD Condition under control with medication No tachycardia - continue Metoprolol per PCP Assessment & Plan (08/27/2018 10:28 PM CDT): Continue current medication regimen. Assessment & Plan (01/27/2018 5:14 PM MATCHER OPERATOR): Well controlled on metoprolol. Assessment & Plan (06/24/2017 4:32 PM CDT): Well controlled on the current regimen. Avoidance of salt, proper body weight, and routine exercise recommended. Type 2 diabetes mellitus with hyperlipidemia Overview (11/02/2024): Assessment & Plan (07/20/2024 2:27 PM CDT): A1c, LDL, and blood pressure currently well controlled on current regimen. Check a yearly diabetic eye exam and blood sugars daily. Monofilament testing is intact. Assessment & Plan (01/20/2024 2:35 PM MATCHER OPERATOR): A1c, LDL, and blood pressure currently well controlled on current regimen. Check a yearly diabetic eye exam and blood sugars daily. Monofilament testing is intact. Assessment & Plan (07/17/2023 12:00 PM CDT): A1c and blood pressure currently well controlled on current regimen. Check a yearly diabetic eye exam and blood sugars daily. Monofilament testing is intact. Assessment & Plan (12/06/2022 9:10 AM MATCHER OPERATOR): A1c, LDL, and blood pressure currently well controlled on current regimen. Check a yearly diabetic eye exam and blood sugars daily. Monofilament testing is intact. Assessment & Plan (06/05/2022 9:09 AM CDT): A1c, LDL, and blood pressure currently well controlled on current regimen. Check a yearly diabetic eye exam and blood sugars daily. Monofilament testing is intact. Assessment & Plan (12/05/2021 9:15 AM MATCHER OPERATOR): A1c, LDL, and blood pressure currently well controlled on current regimen. Check a yearly diabetic eye exam and blood sugars daily. Monofilament testing is intact. Assessment & Plan (05/30/2021 5:23 PM CDT): A1c, LDL, and blood pressure currently well controlled on current regimen. Check a yearly diabetic eye exam and blood sugars daily. Monofilament testing is intact. Assessment & Plan (11/01/2020 5:11 PM MATCHER OPERATOR): A1c, LDL, and blood pressure currently well controlled on current regimen. Check a yearly diabetic eye exam and blood sugars daily. Monofilament testing is intact. Assessment & Plan (04/29/2020 3:09 PM CDT): A1c above goal and we discussed the importance of reduction carbs increased exercise and weight loss. Check again before next visit. Add medication that visit if needed. Importance of yearly diabetic eye exam and daily monitoring of feet discussed at length. Assessment & Plan (10/02/2019 2:52 PM CDT): Proximity to diabetes discussed at length. Must lose weight with combination of avoidance of carbs increased exercise. Assessment & Plan (01/29/2019 1:57 PM MATCHER OPERATOR): Patient should reduce sugar and carbs, increase exercise, maintain proper body weight, and will check an A1c once or twice yearly. Assessment & Plan (08/27/2018 10:28 PM CDT): Patient should reduce sugar and carbs, increase exercise, maintain proper body weight, and will check an A1c once or twice yearly. Assessment & Plan (06/24/2017 4:32 PM CDT): Patient should reduce sugar and carbs, increase exercise, maintain proper body weight, and will check an A1c once or twice yearly. Hyperlipidemia 04/17/2014 Assessment & Plan (07/20/2024 2:27 PM CDT): Well controlled on current therapy and will check a lipid panel and LFTs in 6 months. Assessment & Plan (01/20/2024 2:34 PM MATCHER OPERATOR): Continue rosuvastatin Vascepa for now and consider adding Zetia next visit if no improvement in LDL. Bring Vascepa bottle into next visit. Triglycerides surprisingly did not improve with the addition of Vascepa. Work on diet exercise Assessment & Plan (07/17/2023 12:01 PM CDT): Patient has coronary artery disease status post coronary artery bypass grafting with diabetes and hypertriglyceridemia thus would benefit from Vascepa for cardiovascular risk reduction and thus sent to her mail-order pharmacy. Discussed side effects call back if any develop. Diet exercise discussed as well. May need addition of ezetimibe for LDL lowering as well. Assessment & Plan (12/06/2022 9:11 AM MATCHER OPERATOR): Well controlled on current therapy and will check a lipid panel and LFTs in 6 months. Assessment & Plan (06/05/2022 9:09 AM CDT): Well controlled on current therapy and will check a lipid panel and LFTs in 6 months. Assessment & Plan (12/05/2021 9:15 AM MATCHER OPERATOR): Well controlled on current therapy and will check a lipid panel and LFTs in 6 months. Assessment & Plan (05/30/2021 5:24 PM CDT): Well controlled on current therapy and will check a lipid panel and LFTs in 6 months. Assessment & Plan (11/01/2020 5:11 PM MATCHER OPERATOR): Well controlled on current therapy and will check a lipid panel and LFTs in 6 months. Assessment & Plan (04/29/2020 3:09 PM CDT): Well controlled on current therapy and will check a lipid panel and LFTs in 6 months. Assessment & Plan (10/02/2019 2:50 PM CDT): Well controlled on current therapy and will check a lipid panel and LFTs in 6 months. Assessment & Plan (01/29/2019 1:57 PM MATCHER OPERATOR): Well controlled on current therapy and will check a lipid panel and LFTs in 6 months. Assessment & Plan (08/27/2018 10:28 PM CDT): Well controlled on current therapy and will check a lipid panel and LFTs in 6 months. Assessment & Plan (01/27/2018 5:14 PM MATCHER OPERATOR): Continue Crestor and discussed PCSK9 inhibitor with her director of loss prevention. Assessment & Plan (06/24/2017 4:32 PM CDT): Well controlled on current therapy and will check a lipid panel and LFTs in twelve months. Atopic rhinitis 03/30/2013 Overview (03/08/2017): Allergic rhinitis Assessment & Plan (11/01/2020 5:11 PM MATCHER OPERATOR): Continue Singular Assessment & Plan (08/27/2018 10:27 PM CDT): Continue Singulair. Assessment & Plan (06/24/2017 4:32 PM CDT): Well controlled on her Flonase and Xyzal. Coronary artery disease invo lving [place] heart with angina pectoris Assessment & Plan (03/02/2025 1:53 PM CDT): Continue current medication regimen and follow up with the director of loss prevention as they direct. Assessment & Plan (07/20/2024 2:27 PM CDT): Continue current medication regimen and follow up with the director of loss prevention as they direct. Assessment & Plan (01/20/2024 2:33 PM MATCHER OPERATOR): Recommend diet exercise for LDL lowering and continuing her rosuvastatin for now and considering Zetia next visit if no improvement. Continue other medications and follow up with director of loss prevention as they direct. Assessment & Plan (07/17/2023 12:01 PM CDT): Continue current medication regimen and add Vascepa and follow-up with her director of loss prevention as they direct. Assessment & Plan (12/06/2022 9:11 AM MATCHER OPERATOR): Continue current medication regimen follow up with director of loss prevention as they direct. Assessment & Plan (06/05/2022 9:09 AM CDT): Continue current medication regimen follow up with director of loss prevention as they direct. Assessment & Plan (12/05/2021 9:15 AM MATCHER OPERATOR): Continue current medication regimen follow up with director of loss prevention as they direct. Assessment & Plan (05/30/2021 5:24 PM CDT): Continue aspirin, lisinopril, metoprolol, rosuvastatin and follow up with director of loss prevention as they direct Assessment & Plan (11/01/2020 5:12 PM MATCHER OPERATOR): Aspirin, metoprolol, rosuvastatin follow-up with director of loss prevention as they direct. Assessment & Plan (04/29/2020 3:10 PM CDT): Continue current medication regimen and follow up with director of loss prevention as they direct. Assessment & Plan (10/02/2019 2:51 PM CDT): Continue lisinopril, metoprolol, rosuvastatin, aspirin follow up with director of loss prevention as they direct. Assessment & Plan (01/29/2019 1:58 PM MATCHER OPERATOR): Current complaints seem atypical for cardiovascular disease. Continue monitoring blood pressure at home record and take her next Cardiology appointment in mid March. Assessment & Plan (08/27/2018 10:28 PM CDT): Continue rosuvastatin, metoprolol, lisinopril, aspirin follow up with director of loss prevention as they direct. Assessment & Plan (01/27/2018 5:13 PM MATCHER OPERATOR): It appears that she has gone through successful coronary artery bypass grafting without difficulty. Continue current medication regimen follow up with director of loss prevention and cardiothoracic surgeon as they direct. Resolved Problems Problem Noted Date Diagnosed Date Resolved Date Encounter for screening colonoscopy 01/23/2024 11/04/2024 Hyperthyroidism 01/25/2022 06/07/2022 Assessment & Plan (01/25/2022 12:32 PM MATCHER OPERATOR): Patient with history of sub-clinical hyperthyroidism since 2019 Last labs on 01/13/22 Low TSH of 0.02 High free T4 of 2.8 This could be caused by Graves' disease or toxic nodular goiter Plan: The diagnosis and las reviewed and explained to patient Schedule thyroid ultrasound. Discussed with patient possible treatments for hyperthyroidism, including surgery, WILSON or antithyroid medication Follow up and further recommendation will be decided after we obtain above test results. Upper respiratory tract infection 12/05/2021 07/20/2024 Assessment & Plan (12/05/2021 9:17 AM MATCHER OPERATOR): Probable viral respiratory tract infection. Supportive care until next week and can call back for trial of antibiotics if no improvement. COVID 11/02/2021 07/20/2024 Contusion of right knee 08/28/202107/02 Assessment & Plan (08/28/2021 7:02 PM CDT): X-rays of her right knee and hold call of venous Doppler rule out DVT. If all negative, anti-inflammatories rest ice and keep her leg elevated until symptoms resolve. Call back if this does not occur. Hypertensive heart disease w ithout heart failure 10/28/2018 06/14/2021 Assessment & Plan (06/14/2021 2:13 PM CDT): Recommend DASH diet, heart-healthy lifestyle, exercise. Discussed the risks of hypertension. Assessment & Plan (05/30/2021 5:24 PM CDT): Well controlled on the current regimen. Avoidance of salt, proper body weight, and routine exercise recommended. Assessment & Plan (11/01/2020 5:12 PM MATCHER OPERATOR): Well controlled on the current regimen. Avoidance of salt, proper body weight, and routine exercise recommended. Assessment & Plan (04/29/2020 3:10 PM CDT): Add indapamide 1.25 mg daily to her lisinopril 20 mg daily. Warned of side effects and call back if any develop. Assessment & Plan (10/02/2019 2:51 PM CDT): Increase lisinopril to 20 mg daily. Call back in 1 month if no improvement in blood pressures. Assessment & Plan (01/29/2019 1:58 PM MATCHER OPERATOR): Monitor blood pressures closely over the next 2 weeks and call back if no improvement. Will likely increase lisinopril to 20 mg daily at that point Assessment & Plan (10/28/2018 3:15 PM MATCHER OPERATOR): Well controlled on the current regimen. Avoidance of salt, proper body weight, and routine exercise recommended. Acute chest pain 01/09/2018 01/27/2018 Healthcare maintenance 06/24/201711/04 Assessment & Plan (01/20/2024 2:33 PM MATCHER OPERATOR): Flu shot each September. Tetanus booster every 10 years. Shingrix recommended. Prevnar 20 today. Pneumovax 23 completed. COVID booster up-to-date. Mammogram and colonoscopy ordered. See her back in 6 months with lab sooner if needed. Assessment & Plan (12/06/2022 9:24 AM MATCHER OPERATOR): Flu shot updated today. Tetanus booster every 10 years. Shingrix recommended. COVID booster recommended. Mammogram yearly. Follow-up the relationship associate as they direct. Colonoscopy due and patient will call to schedule. Will see her back in 6 months with lab sooner if needed. Assessment & Plan (12/05/2021 9:16 AM MATCHER OPERATOR): High-dose flu shot today. Tetanus booster every 10 years. COVID vaccine completed. Shingrix recommended. Mammogram yearly. Colonoscopy ordered. Follow-up the relationship associate for breast exam and pelvic exam as they direct. Will see her back in 6 months with lab sooner if needed. Assessment & Plan (11/01/2020 5:12 PM MATCHER OPERATOR): Flu shot each September. Tetanus booster every 10 years. Shingrix recommended. Mammogram yearly. Follow-up the relationship associate for breast exam and pelvic exam as they direct. Colonoscopy due and ordered. Will see her back in 6 months with lab sooner if needed. Assessment & Plan (10/02/2019 2:52 PM CDT): Flu shot each September. Tetanus booster updated today. Prevnar at age 66. Shingrix recommended. Colonoscopy due next year. Mammogram ordered. Will see her back in 6 months with lab sooner if needed. Assessment & Plan (08/27/2018 10:30 PM CDT): Flu shot each September. Tetanus booster every 10 years. Shingrix recommended. Pneumovax today. Colonoscopy due August 2020. Mammogram yearly. Follow-up the relationship associate as they direct. We will see her back in 6 months with lab sooner if needed. Assessment & Plan (06/24/2017 4:36 PM CDT): Flu shot each September. Tetanus booster due October 08, 2019 or sooner with injury. Zostavax recommended. Must have a colonoscopy especially given her chronic abdominal pain. Finally agreeable and ordered. Follow-up with her relationship associate for breast exam, pelvic exam, and Pap smear as he directs. Mammogram yearly. Bone density scan suggested and patient wishes to proceed with her relationship associate regarding this. Will see her back in 6 months with a follow-up on her blood pressure, metabolic panel, and blood sugar sooner if needed. Abdominal pain, chronic, right lower quadrant 06/24/20 17 11/02/2024 Assessment & Plan (06/24/2017 4:33 PM CDT): CT urogram and cystoscopy unremarkable. Gynecological evaluation on Saturday. Colonoscopy ordered. Follow up if no improvement or if worsens. Immunizations Immunization Administration Dates Next Due Influenza, Quadrivalent, Hig h Dose, Preservative Free, Intrr 12/14/2023,12/06/2022,12/05/2021 Influenza, Quadrivalent, Spl it, Intramuscular 09/01/2015 Influenza, Quadrivalent, Spl it, Preservative Free, Intramuscular 11/01/2020 Influenza, Split 09/18/2010 Influenza, Trivalent, IM (MDV) 4,09/01/2014,09/29/2013,09/01,10/07/2009 Influenza, Unspecified 09/01/2024(Deferr ed: Patient Refused),12/05/2021(Deferred: Patient Refused),07/27/2021(Deferred: Patient Refused),09/20/2019,09/15/2018, 017,09/03/2016 Pfizer SARS-CoV-2 Monovalent Vaccination (12+ Yrs) PURPLE 02/17/2021,01/27/2021 Pfizer Sars-Cov-2 Bivalent V accination (12+ YRS) 12/14/2023 Pneumococcal Conjugate Pcv20 01/20/2024 Pneumococcal Polysaccharide PPV23 07/29/2018 Td, adsorbed 10/02/2019 Tdap 10/07/2009 ZOSTER Recombinant 05/15/2024,03/07/2024 Social History Tobacco Use Types Packs/Day Years Used Date Smoking Tobacco: Former Cigarettes 0.5 35 0 06/24/1977 - 06/24/2012 Passive Smoke Exposure: Past Smokeless Tobacco: Never Tobacco Cessation:Counseling Given: Not Answered Comments:Smoking History Packs/day: 0.5 Packs Alcohol Use Standard Drinks/Week Comments Yes 0 (1 standard drink = 0.6 oz pur e alcohol) rarely AUDIT-C Answer Date Recorded Q1: How often do you have a drink containing alc ohol? Monthly or less 11/12/2024 Q2: How many drinks containi ng alcohol do you have on a typical day when you are drinking? 1 or 2 11/12/2024 Q3: How often do you have si x or more drinks on one occasion? Never 11/12/2024 PHQ-2 Answer Date Recorded PHQ-2 Total Score (If total score is 3 or more points, staff should administer the PHQ-9) 0 03/02/2025 Personal Safety Answer Date Recorded Have you ever been in or are you currently in a harmful physical or emotional relationship or is someone making you feel afraid or unsafe? Denies 11/16/2024 Comments No Sex and Gender Information Value Date Recorded Sex Assigned at Not on file Legal Sex Female 11:50 PM MATCHER OPERATOR Gender Identity Female 09/15/2021 10:22 AM CDT Sexual Orientation Lesbian 09/15/2021 10 :22 AM CDT Last Filed Vital Signs Vital Sign Reading Time Taken Comments Blood Pressure 130/80 03/02/2025 1:10 PM CDT Pulse 73 03/02/2025 1:10 PM CDT Temperature 36.4 C (97.6 F) 03/02/2025 1:10 PM CDT Respiratory Rate 16 03/02/2025 1:10 PM CDT Oxygen Saturation 92% 03/02/2025 1:10 PM CDT Inhaled Oxygen Concentration - - Weight 107.7 kg (237 lb 8 oz) 03/02/2025 1:10 PM CDT Height 170.2 cm (5' 7 ) 03/02/2025 1:10 PM CDT Body Mass Index 37.2 03/02/2025 1:10 PM CDT Plan of Treatment Not on file Procedures Procedure Name Priority Date/Time Associated Diagnosis Comments EGFR Routine 01/11/2025 6:16 AM MATCHER OPERATOR Type 2 diabetes mellitus with hyperlipidemia (HCC) DIFFERENTIAL AUTO Routine 01/11/2025 6:1 6 AM MATCHER OPERATOR Screening for blood disease ALBUMIN CREATININE RATIO, URINE Routine 01/11/2025 6:16 AM MATCHER OPERATOR Type 2 diabetes mellitus with hyperlipidemia (HCC) HEMOGLOBIN A1C Routine 01/11/2025 6:16 AM MATCHER OPERATOR Type 2 diabetes mellitus with hyperlipidemia (HCC) THYROID FUNCTION CASCADE Routine 01/11/2025 6:16 AM MATCHER OPERATOR Postoperative hypothyroidism LIPID PANEL Routine 01/11/2025 6:16 AM MATCHER OPERATOR Type 2 diabetes mellitus with hyperlipidemia (HCC) COMPREHENSIVE METABOLIC PANEL Routine 01/11/2025 6:16 AM MATCHER OPERATOR Type 2 diabetes mellitus with hyperlipidemia (HCC) CBC WITH AUTO DIFFERENTIAL Routine 01/11/2025 6:16 AM MATCHER OPERATOR Screening for blood disease XR CHEST PA LATERAL 2 VIEWS Schedule Routine, Read Routine (OP Routine) 12/24/2024 3:51 PM MATCHER OPERATOR Endometrial cancer (HCC) SCREENING MAMMOGRAM BILATERAL W ABIMBOLA Schedule Routine, Read Routine (OP Routine) 02/03/2024 3:47 PM MATCHER OPERATOR Visit for screening mammogram DIABETIC EYE EXAM Routine 07/08/2021 HEPATITIS C AB REFLEX RNA QUANT PCR Routine 12/16/2017 7:04 AM MATCHER OPERATOR COLONOSCOPY REPORT 08/23/2017 HM DEXA SCAN Routine 07/19/2017 from Last 3 Months or Most Recently Relevant to Health Maintenance Results * eGFR (01/11/2025 6:16 AM MATCHER OPERATOR) eGFR >90 >=60 mL/min/1. 73 m2 Comment: Interpretive Data Reference Interval Normal >/= 90 mL/min/1.73m2 Mildly decreased* 60 - 89 mL/min/1.73m2 Mildly to moderately decreased 45 - 59 mL/min/1.73m2 Moderately to severely decreased 30 - 44 mL/min/1.73m2 Severely decreased 15 - 29 mL/min/1.73m2 Kidney Failure < 15 mL/min/1.73m2 *Relative to young adult level Estimated glomerular filtration rate is determined by the 2020 CKD-EPI equation recommended by the National Kidney Foundation (A Unifying Approach to GFR Estimation: Recommendations of the NKF-ASK Task Force on Reassessing the Inclusion of Race in Diagnosing Kidney Disease, JASN 2020). The CKD-EPI equation should not be used for patients with unstable renal function and has not been validated in children and those over 70. Current interpretive data was last reviewed 2021. Blood 01/11/2025 6:16 AM MATCHER OPERATOR 01/11/2025 7:00 AM MATCHER OPERATOR us Earle Darby MD LAB BLOOD ORDERABLES Final R esult [facility] ([place]) 1 [facility] Department [place] [address] * (ABNORMAL) Differential, auto (01/11/2025 6:16 AM MATCHER OPERATOR) Neutrophil abs 6.0 1.5 - 6.5 K/cumm Imm gran abs 0.1 0.0 - 0.1 K/cumm [facility] ([place]) Lymphocyte abs 3.4(H) 0.8 - 3.3 K/cumm [facility] ([place]) Monocyte abs 0.6 0.2 - 0.8 K/cumm [facility] ([place]) Eosinophil abs 0.1 0.0 - 0.5 K/cumm [facility] ([place]) Basophil abs 0.0 0.0 - 0.1 K/cumm [facility] ([place]) Neutrophil pct 59.0 % [facility] ([place]) Comment: Interpretive Data Percent cell count reference ranges are not reported, since discordance with absolute values may lead to misinterpretation of CBC data. Current Interpretive Data was last revised on 2018. Imm gran pct 0.7 % [facility] ([place]) Comment: Interpretive Data Percent cell count reference ranges are not reported, since discordance with absolute values may lead to misinterpretation of CBC data. Current Interpretive Data was last revised on 2018. Lymphocyte pct 33.5 % [facility] ([place]) Comment: Interpretive Data Percent cell count reference ranges are not reported, since discordance with absolute values may lead to misinterpretation of CBC data. Current Interpretive Data was last revised on 2018. Monocyte pct 5.4 % [facility] ([place]) Comment: Interpretive Data Percent cell count reference ranges are not reported, since discordance with absolute values may lead to misinterpretation of CBC data. Current Interpretive Data was last revised on 2018. Eosinophil pct 1.0 % [facility] ([place]) Comment: Interpretive Data Percent cell count reference ranges are not reported, since discordance with absolute values may lead to misinterpretation of CBC data. Current Interpretive Data was last revised on 2018. Basophil pct 0.4 % [facility] ([place]) Comment: Interpretive Data Percent cell count reference ranges are not reported, since discordance with absolute values may lead to misinterpretation of CBC data. Current Interpretive Data was last revised on 2018. Blood 01/11/2025 6:16 AM MATCHER OPERATOR 01/11/2025 7:00 AM MATCHER OPERATOR us Earle Darby MD LAB BLOOD ORDERABLES Final R eselizabeth Performing Organization Address City/[facility]/ZIP Co de Phone Number [facility] ([place]) 1 [facility] Department [place] [address] * Thyroid Function [place] (01/11/2025 6:16 AM MATCHER OPERATOR) TSH 1.61 0.30 - 4.20 mcIUnit/mL Blood 01/11/2025 6:16 AM MATCHER OPERATOR 01/11/2025 7:00 AM MATCHER OPERATOR us Earle Darby MD LAB BLOOD ORDERABLES Final R esult [facility] ([place]) 1 [facility] Department [place] [address] * (ABNORMAL) CBC with auto differential (01/11/2025 6:16 AM MATCHER OPERATOR) [facility] WBC 10.2(H) 3.8 - 9.9 K/cumm Hgb 16.1(H) 11.9 - 15.5 g/dL [facility] ([place]) Hct 50.0(H) 35.6 - 45.5 % [facility] ([place]) Plt 201 150 - 400 K/cumm [facility] ([place]) MPV 8.8(L) 9.1 - 12.3 fL [facility] ([place]) RBC 5.46(H) 3.90 - 5.20 M/cumm [facility] ([place]) MCV 91.6 81.3 - 96.4 fL [facility] ([place]) MCH 29.5 27.1 - 33.3 pg [facility] ([place]) MCHC 32.2(L) 32.3 - 35.7 g/dL [facility] ([place]) RDW CV 14.3 11.1 - 14.9 % [facility] ([place]) RDW SD 47.8 35.7 - 48.1 fL [facility] ([place]) NRBC abs 0.00 0.00 - 0.01 K/cumm [facility] ([place]) Blood 01/11/2025 6:16 AM MATCHER OPERATOR 01/11/2025 7:00 AM MATCHER OPERATOR us Earle Darby MD LAB BLOOD ORDERABLES Final R esult [facility] ([place]) 1 [facility] Department [place] [address] * Albumin Creatinine Ratio, Urine (01/11/2025 6:16 AM MATCHER OPERATOR) [facility] Albumin Ur <12.0 mg/L Comment: Interpretive Data No reference range established. Current interpretive data was last revised 2019. Testing performed by: [facility], [address] [place] [address], [place]., [address] Creatinine Ur 147.2 mg/dL [facility] ([place]) Comment: Interpretive Data No reference range established. Current interpretive data was last revised 2019. Testing performed by: [facility], [address] [place] [address]., [id number] Albumin Creatinine Ratio, Ur <8 1 - 29 mg/g [facility] ([place]) Comment:Testing performed by : [facility], [address] [place] [address]., [id number] Urine 01/11/2025 6:16 AM MATCHER OPERATOR 01/11/2025 11:03 AM MATCHER OPERATOR Earle Darby MD LAB URINE ORDERABLES Final R esult Performing Organization Address City/[facility] Co de Phone Number [facility] ([place]) 1 [facility] [place] [address] * (ABNORMAL) Hemoglobin A1c (01/11/2025 6:16 AM MATCHER OPERATOR) Hgb A1C 7.0(H) 4.0 - 5.6 % Estimated Average Glucose 154 mg/dL [facility] ([place]) Comment: The ADA recommends reporting an estimated Average Glucose (eAG) with all Hemoglobin A1c results using the equation derived from a study of 507 normal and diabetic adults. Minority populations were underrepresented and children were not included. (Diabetes Care 31:4243-2313, 2008). The eAG is not equivalent to a fasting glucose. Blood 01/11/2025 6:16 AM MATCHER OPERATOR 01/11/2025 7:00 AM MATCHER OPERATOR Earle Darby MD LAB BLOOD ORDERABLES Final R esult [facility] ([place]) 1 [facility] [place] [place] [address] * (ABNORMAL) Lipid panel (01/11/2025 6:16 AM MATCHER OPERATOR) Cholesterol 205(H) 30 - 199 mg/dL Comment: Interpretive Data Ages < or = 19 years Acceptable: <170 mg/dL Borderline high: 170-199 mg/dL High: >or= 200 mg/dL Ages > or = 20 years Desirable: <200 mg/dL Borderline high: 200-239 mg/dL High: >or= 240 mg/dL Literature References: 1. Expert Panel on Integrated Guidelines for Cardiovascular Health and Risk Reduction in Children and Adolescents. Pediatrics 2011;128:S213 2. NCEP Expert Panel. Circulation 2004;110:227 Current Interpretive Data was last revised on 2018. Triglycerides 297(H) <=149 mg/dL [facility] ([place]) Comment: Interpretive Data Ages < or = 9 years Acceptable: <75 mg/dL Borderline high: 75-99 mg/dL High: >or= 100 mg/dL Ages 10 to 20 years Acceptable: <90 mg/dL Borderline high: 90-129 mg/dL High: >or= 130 mg/dL Ages > or = 20 years Desirable: <150 mg/dL Borderline high: 150-199 mg/dL High: 200-499 mg/dL Very high: >or= 499 mg/dL Literature References: 1. Expert Panel on Integrated Guidelines for Cardiovascular Health and Risk Reduction in Children and Adolescents. Pediatrics 2011;128:S213 2. NCEP Expert Panel. Circulation 2004;110:227 Current Interpretive Data was last revised on 2018. HDL 45 >=40 mg/dL [facility] ([place]) Comment: Interpretive Data Ages < or = 19 years Acceptable: >45 mg/dL Borderline low: 40-45 mg/dL Low: <40 mg/dL Ages > or = 20 years Desirable: >or= 60 mg/dL Low: <40 mg/dL Literature References: 1. Expert Panel on Integrated Guidelines for Cardiovascular Health and Risk Reduction in Children and Adolescents. Pediatrics 2011;128:S213 2. NCEP Expert Panel. Circulation 2004;110:227 Current Interpretive Data was last revised on 2018. LDL, calculated 109 <=129 mg/dL [facility] ([place]) Comment: Interpretive Data Ages < or = 19 years Acceptable: <110 mg/dL Borderline high: 110-129 mg/dL High: >or= 130 mg/dL Ages > or = 20 years Optimal: <100 mg/dL Near optimal: 100-129 mg/dL Borderline high: 130-159 mg/dL High: >160 mg/dL Calculated using the Rivas LDL-C estimating equation. This equation was implemented on 2024. Prior to this date LDL-C was estimated using the Friedewald equation. Literature References: 1. Expert Panel on Integrated Guidelines for Cardiovascular Health and Risk Reduction in Children and Adolescents. Pediatrics 2011;128:S213 2. NCEP Expert Panel. Circulation 2004;110:227 3. Rob Bob et al. AIMEE Cardiol. 2019April 01;5(5):540-548. doi: 10.1001/jamacardio.2020.0013 Current Interpretive Data was last revised on 2024. Non-HDL Cholesterol 160 mg/dL [facility] ([place]) Comment: Interpretive Data Ages < or = 19 years Acceptable: <120 mg/dL Borderline high: 120-144 mg/dL High: >145 mg/dL Ages > or = 20 years When triglycerides are >200 mg/dL, Non-HDL cholesterol is a secondary target of therapy with treatment goals that are 30 mg/dL greater than the LDL cholesterol target. Literature References: 1. Expert Panel on Integrated Guidelines for Cardiovascular Health and Risk Reduction in Children and Adolescents. Pediatrics 2011;128:S213 2. NCEP Expert Panel. Circulation 2004;110:227 Current Interpretive Data was last revised on 2018. Chol/HDL ratio 5 [facility] ([place]) Blood 01/11/2025 6:16 AM MATCHER OPERATOR 01/11/2025 7:00 AM MATCHER OPERATOR Narrative [facility] ([place]) - 01/11/2025 7:50 AM MATCHER OPERATOR Has the patient been fasting for 8 hours or more?->Yes us Earle Darby MD LAB BLOOD ORDERABLES Final R esult [facility] ([place]) 1 [facility] Department of Laboratories [place], [place] [id number] * Comprehensive metabolic panel (01/11/2025 6:16 AM MATCHER OPERATOR) Sodium 141 135 - 145 mmol/L Potassium, pl 4.4 3.3 - 4.9 mmol/L [facility] ([place]) Chloride 100 97 - 110 mmol/L [facility] ([place]) CO2 30 22 - 32 mmol/L [facility] ([place]) Anion gap 11 2 - 15 mmol/L [facility] ([place]) BUN 16 6 - 25 mg/dL [facility] ([place]) Creatinine 0.66 0.60 - 1.10 mg/dL [facility] ([place]) Glucose 161 70 - 199 mg/dL [facility] ([place]) Comment: Interpretive Data Fasting glucose >/= 126 mg/dl is diagnostic for diabetes. Fasting is defined as no caloric intake for at least 8 hours. Fasting glucose between 100 mg/dl to 125 mg/dl is diagnostic of prediabetes. In a patient with classic symptoms of hyperglycemia or hyperglycemic crisis, a random glucose >/= 200 mg/dl is diagnostic for diabetes. In the absence of unequivocal hyperglycemia, results should be confirmed by repeat testing. The classification and Diagnosis of Diabetes Diabetes Care 2021; 46: S19-S40. Current interpretive data was last revised 2022. Calcium 9.6 8.5 - 10.3 mg/dL [facility] ([place]) Bilirubin, total 0.4 0.1 - 1.2 mg/dL [facility] ([place]) Protein, pl 7.0 6.5 - 8.5 g/dL [facility] ([place]) Albumin 4.3 3.5 - 5.0 g/dL [facility] ([place]) Alk phos 78 40 - 130 Units/L [facility] ([place]) ALT 20 7 - 45 Units/L [facility] ([place]) AST 17 10 - 45 Units/L [facility] ([place]) Comment:Slightly Hemolyzed S pecimen Blood 01/11/2025 6:1 6 AM MATCHER OPERATOR 01/11/2025 7:00 AM MATCHER OPERATOR Narrative [facility] ([place]) - 01/11/2025 7:50 AM MATCHER OPERATOR Has the patient fasted?->Yes us Earle Darby MD LAB BLOOD ORDERABLES Final R esult [facility] ([place]) 1 [facility] Department [place] [address] * XR Chest Pa Lateral 2 Views (12/24/2024 3:51 PM MATCHER OPERATOR) Anatomical Region Laterality Modality Body, Chest N/A Computed Radiogr aphy 12/24/2024 4:56 PM MATCHER OPERATOR Impressions 12/24/2024 9:36 PM MATCHER OPERATOR Comparison is made to 08/07/2020. Sternotomy wires are intact and aligned. Lungs are clear with no consolidation. No pleural effusion or pneumothorax. Cardiomediastinal silhouette is unchanged. Dictated by: Michelet Barraza M.D. The radiology attending physician has personally reviewed this study, and had reviewed and/or edited this written report and agrees with it. Electronically signed by: Gonzalez Fitzgerald M.D. Narrative 12/24/2024 9:36 PM MATCHER OPERATOR EXAMINATION: 2 view chest radiograph Procedure Note Gonzalez Fitzgerald MD PhD - 12/24/2024 EXAMINATION: 2 view chest radiograph IMPRESSION: Comparison is made to 08/07/2020. Sternotomy wires are intact and aligned. Lungs are clear with no consolidation. No pleural effusion or pneumothorax. Cardiomediastinal silhouette is unchanged. Dictated by: Michelet Barraza M.D. The radiology attending physician has personally reviewed this study, and had reviewed and/or edited this written report and agrees with it. Electronically signed by: Gonzalez Fitzgerald M.D. Elena Monreal MD IMG XR PROCEDURES Final R esult * SCREENING MAMMOGRAM BILATERAL W ABIMBOLA (02/03/2024 3:47 PM MATCHER OPERATOR) Anatomical Region Laterality Modality Breast Bilateral Mammography 02/03/2024 3:54 PM MATCHER OPERATOR Impressions 02/03/2024 3:54 PM MATCHER OPERATOR There is no mammographic evidence of malignancy. A 1 year screening mammogram is recommended. BI-RADS: 2 - Benign. The patient has been or will be contacted. The patient will be entered into a reminder system with a target due date of 1 year for her next mammogram. Electronically signed by: MAGDI WALKER Narrative 02/03/2024 3:54 PM MATCHER OPERATOR EXAMINATION: SCREENING MAMMOGRAM BILATERAL W ABIMBOLA ORDERING HEALTHCARE PROVIDER: EARLE DARBY HISTORY: Routine screening mammography. COMPARISON: 01/13/2022, 01/07/2021. TECHNIQUE: CC and MLO views of both breasts were obtained with digital technique using digital breast tomosynthesis with C view. Computer aided detection was utilized. FINDINGS: DENSITY: The breasts have scattered areas of fibroglandular density. BREASTS: There is a biopsy marker clip in the right breast. A few benign calcifications are unchanged. There is no new suspicious finding in either breast on mammogram. Earle Darby MD IMG MAMMO PROCEDURES Final R esult * Diabetic Eye Exam (07/08/2021) Result [facility] Historical Provider HEALTH MAINTENANCE Final Result * Hepatitis C Antibody Reflex Hepatitis C RNA Quantitative PCR (12/16/2017 7:04 AM MATCHER OPERATOR) Hep C Ab Negative Negative [facility] Blood specimen (specimen) 12/16/2017 7:04 AM MATCHER OPERATOR 12/16/2017 2:34 PM MATCHER OPERATOR Narrative [facility] - 12/16/2017 3:41 PM MATCHER OPERATOR Result [facility] Earle Darby MD LAB MICROBIOLOGY - GENERAL O RDERABLES Final Result [facility] [id number] Department of Laboratories [place] [id number] * COLONOSCOPY REPORT (08/23/2017) Anatomical Region Laterality Modality Other Provider Scanning GI PROCEDURE ORDERABLES Final Result * HM DEXA SCAN (07/19/2017) HM DEXA Scan Normal Result [facility] Historical Provider HEALTH MAINTENANCE Final Result from Last 3 Months or Most Recently Relevant to Health Maintenance Insurance [facility] HMO/PPO Address: [address] [address] [place] [phone] MEDICARE [facility] HMO/PPO Address: [address] [address] [place] [address] [facility] HMO/PPO Address: [address] [address] [place] [address] MEDICARE MEDICARE [facility] HMO/PPO Address: [address] [address] [place] [address] Advance Directives For more information, please contact: [phone] * Full Code (Latest Code Status on File) Date Activated Date Inactivated Comments 05/09/2022 7:33 PM 05/10/2022 2:57 PM * Full Code Date Activated Date Inactivated Comments 01/08/2018 7:23 PM 01/11/2018 4:53 PM Care Teams Gas Station Service Attendant Relationship Specialty Start Date End Date Earle Darby MD [address] [facility] [address], [place] [address] PCP - General Internal Medicine 10/09/24 Fabian Matute MD 4 [facility] [address] [address] Consulting Physician Endocrinology 02/07/22 Rahat Jean Baptiste MD [address] [place] [address] Referring Physician Obstetrics and Gynecology 12/23/24
--- OUTSIDE RECORDS SUMMARY | 2025-03-07 10:50 | XMS_ITS | Encounter Summary ---
Author Organization [facility] Healthcare Address [address] [place] [address] Care Team Providers Care Chain Hoist Operator Name Role Phone Fabian Matute MD Unavailable [phone] Álvaro Darby MD Primary Care Provider [phone] Rahat Jean Baptiste MD Unavailable [phone] Reason for Visit * Auth/Cert (Routine) Specialty Diagnoses / Procedures Referred By Contac t Referred To Contact Diagnoses Personal history of colonic polyps Encounter for screening colonoscopy Personal history of colonic polyps [Z86.010] Encounter for screening colonoscopy [Z12.11] Procedures NC COLONOSCOPY FLX DX W/COLLJ SPEC WHEN PFRMD COLONOSCOPY Referral ID Status Reason Start Date Expiration Date Visits Re quested Visits Authorized [id number] 1 1 Encounter Details Date Type Department Care Team (Late st Contact Info) Description 10/09/2024 Hospital Encounter [facility] [address] [place] [address] Yash Bee MD [address] [place] [address] [place] [address] Social History Tobacco Use Types Packs/Day Years Used Date Smoking Tobacco: Former Cigarettes 0.5 35 0 06/24/1977 - 06/24/2012 Passive Smoke Exposure: Past Smokeless Tobacco: Never Comments:Smoking History Pac ks/day: [...] on file Legal Sex Female 11:50 PM [employer] Gender Identity Female 09/15/2021 10:22 AM CDT Sexual Orientation Lesbian 09/15/2021 10 :22 AM CDT documented as of this encounter Functional Status * Audit-C Score Answer Date of Assessment Author 1 11/12/2024 8:11 AM Rafy Chavez RN * Question Answer Date of Assessment Author Q1: How often do you have a drink containing alcohol? Monthly or less 11/12/2024 8:11 AM Corey Chavez RN Q2: How many drinks containing alcohol do you have on a typical day when you are drinking? 1 or 2 11/12/2024 8:11 AM Corey Chavez RN Q3: How often do you have six or more drinks on one occasion? Never 11/12/2024 8:11 AM Corey Chavez RN documented as of this encounter Plan of Treatment Not on file documented as of this encounter Visit Diagnoses Diagnosis Personal history of colonic polyps documented in this encounter Admitting Diagnoses Diagnosis Personal history of colonic polyps Encounter for screening colonoscopy documented in this encounter Care Teams Chain Hoist Operator Relationship Specialty Start Date End Date Álvaro Darby MD [address] [address] PCP - General Internal Medicine 10/09/24 Fabian Matute MD [address] [place] [address] [address] [place] [address] Consulting Physician Endocrinology 02/07/22 Rahat Jean Baptiste MD [address] [facility] [address] [place] [address] Referring Physician Obstetrics and Gynecology 12/23/24 documented as of this encounter
--- OUTSIDE RECORDS SUMMARY | 2025-03-07 10:50 | XMS_ITS ---
Author Organization [facility] Address [address] [place] [address] Care Team Providers Care Laundry Helper Name Role Phone Fabian Matute MD Unavailable [phone] Álvaro Darby MD Primary Care Provider [phone] Rahat Jean Baptiste MD Unavailable [phone] Active Problems Problem Noted Date Diagnosed Date Heart murmur 03/02/2025 Endometrial cancer 11/02/2024 Cancer Staging:Pathologic stage from 11/16/2024:FIGO Stage IA(pT1a, pN0(sn), cM0) - Signed by Elena Monreal MD on 11/26/2024 Polycythemia 12/06/2022 Assessment & Plan (12/06/2022 9:11 AM DENTAL EQUIPMENT MECHANIC): Repeat CBC in 6 months. Class 2 obesity with body ma ss index (BMI) of 35.0 to 35.9 in adult 12/06/2022 Assessment & Plan (12/06/2022 9:25 AM DENTAL EQUIPMENT MECHANIC): Patient is encouraged to lose weight with a combination of caloric reduction and increased exercise. 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 Also refer to endocrinology for history of thyroidectomy for papillary microcarcinoma. Assessment & Plan (01/20/2024 2:35 PM DENTAL EQUIPMENT MECHANIC): Continue current dose of levothyroxine check TSH [...] results. 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 Hernandez. Assessment & Plan (10/08/2022 8:35 AM DENTAL EQUIPMENT MECHANIC): MNG s/p total thyroidectomy on 05/09/22 Micro-papillary [...] (04/17/2022): Added automatically from request for surgery [id number] Chronic pain of left knee 12/05/2021 Overview [...] knee. Assessment & Plan (12/05/2021 9:17 AM DENTAL EQUIPMENT MECHANIC): Probably loose body or meniscal tear based on history. Currently asymptomatic. Recommend orthopedic referral if worsens. Gastroesophageal reflux disease without esophagi tis 11/01/2020 Assessment & Plan (11/01/2020 5:12 PM DENTAL EQUIPMENT MECHANIC): If becomes more frequent, would recommend Pepcid daily. Rotator cuff tendinitis, right 10/02/2019 Subacromial bursitis 10/02/2019 S/P thyroidectomy 08/27/2018 Overview (06/05/2022): Path with 2 papillary microacarcinomas Assessment & Plan (07/17/2023 12:02 PM CDT): Continue levothyroxine check TSH and free T4 before next visit and follow-up with endocrinology and her surgeon as they direct. Assessment & Plan (12/06/2022 9:11 AM DENTAL EQUIPMENT MECHANIC): Follow-up with Dr. Matute as he directs. Assessment & Plan (06/05/2022 9:06 AM CDT): F/u with surgeon and Dr Matute as they direct. Assessment & Plan (12/05/2021 9:16 AM DENTAL EQUIPMENT MECHANIC): Seems fairly asymptomatic and will check TSH and free T4 before next visit and refer to Endocrinology if necessary. Assessment & Plan (05/30/2021 5:24 PM CDT): Currently asymptomatic and will check TSH and free T4 before next visit. Assessment & Plan (11/01/2020 5:12 PM DENTAL EQUIPMENT MECHANIC): Asymptomatic and thyroid levels are normal. Assessment & Plan (10/02/2019 2:50 PM CDT): Asymptomatic and thyroid levels normal. Assessment & Plan (01/29/2019 1:58 PM DENTAL EQUIPMENT MECHANIC): Asymptomatic and will check thyroid labs again before next visit. Benign paroxysmal positional vertigo 06/02/2018 Assessment & Plan (12/06/2022 9:12 AM DENTAL EQUIPMENT MECHANIC): Recommend meclizine as needed. Call back for vestibular therapy if needed. S/P CABG (coronary artery bypass graft) 01/27/20 18 Overview (01/27/2018): Three vessel January 2018. Urinary, incontinence, stress female 06/24/2017 Assessment & Plan (06/24/2017 4:36 PM CDT): Follow-up with Dr. Mtz as she directs. Vitamin D deficiency 04/17/2014 Overview (03/08/2017): Vitamin D deficiency Assessment & Plan (01/20/2024 2:35 PM DENTAL EQUIPMENT MECHANIC): Continue current supplementation and check level in 1 year. Assessment & Plan (07/17/2023 12:00 PM CDT): Continue vitamin-D supplementation check level before next visit Assessment & Plan (12/06/2022 9:10 AM DENTAL EQUIPMENT MECHANIC): Continue current supplementation and check level in 1 year. Assessment & Plan (12/05/2021 9:15 AM DENTAL EQUIPMENT MECHANIC): Continue current supplementation and check level in 1 year. Assessment & Plan (05/30/2021 5:23 PM CDT): Continue current supplementation and check level before next visit. Assessment & Plan (11/01/2020 5:11 PM DENTAL EQUIPMENT MECHANIC): Continue current supplementation and check level in [...] changes Assessment & Plan (01/20/2024 2:35 PM DENTAL EQUIPMENT MECHANIC): Blood pressure well controlled on indapamide and lisinopril metoprolol Assessment & Plan (07/17/2023 12:00 PM CDT): Blood pressure well controlled on indapamide, lisinopril, metoprolol Assessment & Plan (01/25/2022 12:34 PM DENTAL EQUIPMENT MECHANIC): Patient with history of CAD Condition under control with medication No tachycardia - continue Metoprolol per PCP Assessment & Plan (08/27/2018 10:28 PM CDT): Continue current medication regimen. Assessment & Plan (01/27/2018 5:14 PM DENTAL EQUIPMENT MECHANIC): Well controlled on metoprolol. Assessment & Plan [...] intact. Assessment & Plan (01/20/2024 2:35 PM DENTAL EQUIPMENT MECHANIC): A1c, LDL, and blood pressure currently well controlled on current regimen. Check a yearly diabetic eye exam and blood sugars daily. Monofilament testing is intact. Assessment & Plan (07/17/2023 12:00 PM CDT): A1c and blood pressure currently well controlled on current regimen. Check a yearly diabetic eye exam and blood sugars daily. Monofilament testing is intact. Assessment & Plan (12/06/2022 9:10 AM DENTAL EQUIPMENT MECHANIC): A1c, LDL, and blood pressure currently well controlled on current regimen. Check a yearly diabetic eye exam and blood sugars daily. Monofilament testing is intact. Assessment & Plan (06/05/2022 9:09 AM CDT): A1c, LDL, and blood pressure currently well controlled on current regimen. Check a yearly diabetic eye exam and blood sugars daily. Monofilament testing is intact. Assessment & Plan (12/05/2021 9:15 AM DENTAL EQUIPMENT MECHANIC): A1c, LDL, and blood pressure currently well controlled on current regimen. Check a yearly diabetic eye exam and blood sugars daily. Monofilament testing is intact. Assessment & Plan (05/30/2021 5:23 PM CDT): A1c, LDL, and blood pressure currently well controlled on current regimen. Check a yearly diabetic eye exam and blood sugars daily. Monofilament testing is intact. Assessment & Plan (11/01/2020 5:11 PM DENTAL EQUIPMENT MECHANIC): A1c, LDL, and blood pressure currently well [...] exercise. Assessment & Plan (01/29/2019 1:57 PM DENTAL EQUIPMENT MECHANIC): Patient should reduce sugar and carbs, increase [...] months. Assessment & Plan (01/20/2024 2:34 PM DENTAL EQUIPMENT MECHANIC): Continue rosuvastatin Vascepa for now and consider [...] well. Assessment & Plan (12/06/2022 9:11 AM DENTAL EQUIPMENT MECHANIC): Well controlled on current therapy and will check a lipid panel and LFTs in 6 months. Assessment & Plan (06/05/2022 9:09 AM CDT): Well controlled on current therapy and will check a lipid panel and LFTs in 6 months. Assessment & Plan (12/05/2021 9:15 AM DENTAL EQUIPMENT MECHANIC): Well controlled on current therapy and will check a lipid panel and LFTs in 6 months. Assessment & Plan (05/30/2021 5:24 PM CDT): Well controlled on current therapy and will check a lipid panel and LFTs in 6 months. Assessment & Plan (11/01/2020 5:11 PM DENTAL EQUIPMENT MECHANIC): Well controlled on current therapy and will [...] months. Assessment & Plan (01/29/2019 1:57 PM DENTAL EQUIPMENT MECHANIC): Well controlled on current therapy and will check a lipid panel and LFTs in 6 months. Assessment & Plan (08/27/2018 10:28 PM CDT): Well controlled on current therapy and will check a lipid panel and LFTs in 6 months. Assessment & Plan (01/27/2018 5:14 PM DENTAL EQUIPMENT MECHANIC): Continue Crestor and discussed PCSK9 inhibitor with her construction technician. Assessment & Plan (06/24/2017 4:32 PM CDT): Well controlled on current therapy and will check a lipid panel and LFTs in twelve months. Atopic rhinitis 03/30/2013 Overview (03/08/2017): Allergic rhinitis Assessment & Plan (11/01/2020 5:11 PM DENTAL EQUIPMENT MECHANIC): Continue Singular Assessment & Plan (08/27/2018 10:27 PM CDT): Continue Singulair. Assessment & Plan (06/24/2017 4:32 PM CDT): Well controlled on her Flonase and Xyzal. Coronary artery disease invo lving [place] heart with angina pectoris Assessment & Plan (03/02/2025 1:53 PM CDT): Continue current medication regimen and follow up with the construction technician as they direct. Assessment & Plan (07/20/2024 2:27 PM CDT): Continue current medication regimen and follow up with the construction technician as they direct. Assessment & Plan (01/20/2024 2:33 PM DENTAL EQUIPMENT MECHANIC): Recommend diet exercise for LDL lowering and continuing her rosuvastatin for now and considering Zetia next visit if no improvement. Continue other medications and follow up with construction technician as they direct. Assessment & Plan (07/17/2023 12:01 PM CDT): Continue current medication regimen and add Vascepa and follow-up with her construction technician as they direct. Assessment & Plan (12/06/2022 9:11 AM DENTAL EQUIPMENT MECHANIC): Continue current medication regimen follow up with construction technician as they direct. Assessment & Plan (06/05/2022 9:09 AM CDT): Continue current medication regimen follow up with construction technician as they direct. Assessment & Plan (12/05/2021 9:15 AM DENTAL EQUIPMENT MECHANIC): Continue current medication regimen follow up with construction technician as they direct. Assessment & Plan (05/30/2021 5:24 PM CDT): Continue aspirin, lisinopril, metoprolol, rosuvastatin and follow up with construction technician as they direct Assessment & Plan (11/01/2020 5:12 PM DENTAL EQUIPMENT MECHANIC): Aspirin, metoprolol, rosuvastatin follow-up with construction technician as they direct. Assessment & Plan (04/29/2020 3:10 PM CDT): Continue current medication regimen and follow up with construction technician as they direct. Assessment & Plan (10/02/2019 2:51 PM CDT): Continue lisinopril, metoprolol, rosuvastatin, aspirin follow up with construction technician as they direct. Assessment & Plan (01/29/2019 1:58 PM DENTAL EQUIPMENT MECHANIC): Current complaints seem atypical for cardiovascular disease. Continue monitoring blood pressure at home record and take her next Cardiology appointment in mid March. Assessment & Plan (08/27/2018 10:28 PM CDT): Continue rosuvastatin, metoprolol, lisinopril, aspirin follow up with construction technician as they direct. Assessment & Plan (01/27/2018 5:13 PM DENTAL EQUIPMENT MECHANIC): It appears that she has gone through successful coronary artery bypass grafting without difficulty. Continue current medication regimen follow up with construction technician and cardiothoracic surgeon as they direct. Current Treatment and Therapy Plans No current plan information found. Past Treatment and Therapy Plans Lifetime Dose Tracking * Chemical Lifetime Dose Automatic Entry Manual Entr y DLP 731 mGycm 731 mGycm 0 mGycm Resolved Problems Problem Noted Date Diagnosed Date Resolved Date Encounter for screening colonoscopy 01/23/2024 11/04/2024 Hyperthyroidism 01/25/2022 06/07/2022 Assessment & Plan (01/25/2022 12:32 PM DENTAL EQUIPMENT MECHANIC): Patient with history of sub-clinical hyperthyroidism since 2018 Last labs on 01/13/22 Low TSH of [...] 07/20/2024 Assessment & Plan (12/05/2021 9:17 AM DENTAL EQUIPMENT MECHANIC): Probable viral respiratory tract infection. Supportive care [...] does not occur. Hypertensive heart disease w [facility] heart failure 10/28/2018 06/14/2021 Assessment & Plan (06/14/2021 2:13 PM CDT): Recommend DASH diet, heart-healthy lifestyle, exercise. Discussed the risks of hypertension. Assessment & Plan (05/30/2021 5:24 PM CDT): Well controlled on the current regimen. Avoidance of salt, proper body weight, and routine exercise recommended. Assessment & Plan (11/01/2020 5:12 PM DENTAL EQUIPMENT MECHANIC): Well controlled on the current regimen. Avoidance [...] pressures. Assessment & Plan (01/29/2019 1:58 PM DENTAL EQUIPMENT MECHANIC): Monitor blood pressures closely over the next 2 weeks and call back if no improvement. Will likely increase lisinopril to 20 mg daily at that point Assessment & Plan (10/28/2018 3:15 PM DENTAL EQUIPMENT MECHANIC): Well controlled on the current regimen. Avoidance of salt, proper body weight, and routine exercise recommended. Acute chest pain 01/09/2018 01/27/2018 Healthcare maintenance 06/24/201711/04 Assessment & Plan (01/20/2024 2:33 PM DENTAL EQUIPMENT MECHANIC): Flu shot each September. Tetanus booster every 10 years. Shingrix recommended. Prevnar 20 today. Pneumovax 23 completed. COVID booster up-to-date. Mammogram and colonoscopy ordered. See her back in 6 months with lab sooner if needed. Assessment & Plan (12/06/2022 9:24 AM DENTAL EQUIPMENT MECHANIC): Flu shot updated today. Tetanus booster every 10 years. Shingrix recommended. COVID booster recommended. Mammogram yearly. Follow-up the certification technician as they direct. Colonoscopy due and patient will call to schedule. Will see her back in 6 months with lab sooner if needed. Assessment & Plan (12/05/2021 9:16 AM DENTAL EQUIPMENT MECHANIC): High-dose flu shot today. Tetanus booster every 10 years. COVID vaccine completed. Shingrix recommended. Mammogram yearly. Colonoscopy ordered. Follow-up the certification technician for breast exam and pelvic exam as they direct. Will see her back in 6 months with lab sooner if needed. Assessment & Plan (11/01/2020 5:12 PM DENTAL EQUIPMENT MECHANIC): Flu shot each September. Tetanus booster every 10 years. Shingrix recommended. Mammogram yearly. Follow-up the certification technician for breast exam and pelvic exam as [...] due August 2020. Mammogram yearly. Follow-up the certification technician as they direct. We will see her back in 6 months with lab sooner if needed. Assessment & Plan (06/24/2017 4:36 PM CDT): Flu shot each September. Tetanus booster due October 08, 2019 or sooner with injury. Zostavax recommended. Must have a colonoscopy especially given her chronic abdominal pain. Finally agreeable and ordered. Follow-up with her certification technician for breast exam, pelvic exam, and Pap smear as he directs. Mammogram yearly. Bone density scan suggested and patient wishes to proceed with her certification technician regarding this. Will see her back in [...]
--- OUTSIDE RECORDS SUMMARY | 2025-03-07 10:50 | XMS_ITS | Clinical Summary ---
Author Organization [facility] Address [address] [place] [address] Care Team Providers Care Jail Manager Name Role Phone Fabian Matute MD Unavailable [phone] Earle Darby MD Primary Care Provider [phone] Rahat Jean Baptiste MD Unavailable [phone] Allergies Active Allergy Reactions Criticality Noted Date [...] 1 tablet (150 mcg total) by mouth human resources talent manager before breakfast 90 tablet 3 07/20/20 24 [...] 12/06/2022 Assessment & Plan (12/06/2022 9:11 AM IRISH MOSS OPERATOR): Repeat CBC in 6 months. Class 2 obesity with body ma ss index (BMI) of 35.0 to 35.9 in adult 12/06/2022 Assessment & Plan (12/06/2022 9:25 AM IRISH MOSS OPERATOR): Patient is encouraged to lose weight with a combination of caloric reduction and increased exercise. Bilateral high frequency sensorineural hearing l oss 06/15/2022 Tinnitus of left ear 06/15/2022 Postoperative hypothyroidism 06/07/2022 Assessment & Plan (11/01/2024 8:00 PM IRISH MOSS OPERATOR): Chronic stable Recommend to continue current dose of levothyroxine Recheck thyroid function test every 6 months Assessment & Plan (07/20/2024 2:27 PM CDT): Continue current dose of levothyroxine check TSH before next visit adjust dose based on results. Also refer to endocrinology for history of thyroidectomy for papillary microcarcinoma. Assessment & Plan (01/20/2024 2:35 PM IRISH MOSS OPERATOR): Continue current dose of levothyroxine check [...] results. Assessment & Plan (10/08/2022 8:35 AM IRISH MOSS OPERATOR): Patient is clinically euthyroid TSH was [...] (06/06/2022): Added automatically from request for surgery [id number] Papillary microcarcinoma of thyroid 06/05/2022 Overview (06/05/2022): S/p excision 05/2022 Assessment & Plan (11/01/2024 8:01 PM IRISH MOSS OPERATOR): MNG s/p total thyroidectomy on 05/09/22 Micro-papillary thyroid cancer Patient recently had a thyroid ultrasound, noted stable findings Assessment & Plan (04/08/2023 9:14 AM CDT): MNG s/p total thyroidectomy on 05/09/22 Micro-papillary thyroid cancer - we will monitor - she will have thyroid ultrasound next month with Dr. Hernandez. Assessment & Plan (10/08/2022 8:35 AM IRISH MOSS OPERATOR): MNG s/p total thyroidectomy on 05/09/22 [...] (04/17/2022): Added automatically from request for surgery [id number] Chronic pain of left knee 12/05/2021 Overview [...] knee. Assessment & Plan (12/05/2021 9:17 AM IRISH MOSS OPERATOR): Probably loose body or meniscal tear based on history. Currently asymptomatic. Recommend orthopedic referral if worsens. Gastroesophageal reflux disease without esophagi tis 11/01/2020 Assessment & Plan (11/01/2020 5:12 PM IRISH MOSS OPERATOR): If becomes more frequent, would recommend Pepcid daily. Rotator cuff tendinitis, right 10/02/2019 Subacromial bursitis 10/02/2019 S/P thyroidectomy 08/27/2018 Overview (06/05/2022): Path with 2 papillary microacarcinomas Assessment & Plan (07/17/2023 12:02 PM CDT): Continue levothyroxine check TSH and free T4 before next visit and follow-up with endocrinology and her surgeon as they direct. Assessment & Plan (12/06/2022 9:11 AM IRISH MOSS OPERATOR): Follow-up with Dr. Matute as he directs. Assessment & Plan (06/05/2022 9:06 AM CDT): F/u with surgeon and Dr Matute as they direct. Assessment & Plan (12/05/2021 9:16 AM IRISH MOSS OPERATOR): Seems fairly asymptomatic and will check TSH and free T4 before next visit and refer to Endocrinology if necessary. Assessment & Plan (05/30/2021 5:24 PM CDT): Currently asymptomatic and will check TSH and free T4 before next visit. Assessment & Plan (11/01/2020 5:12 PM IRISH MOSS OPERATOR): Asymptomatic and thyroid levels are normal. Assessment & Plan (10/02/2019 2:50 PM CDT): Asymptomatic and thyroid levels normal. Assessment & Plan (01/29/2019 1:58 PM IRISH MOSS OPERATOR): Asymptomatic and will check thyroid labs again before next visit. Benign paroxysmal positional vertigo 06/02/2018 Assessment & Plan (12/06/2022 9:12 AM IRISH MOSS OPERATOR): Recommend meclizine as needed. Call back for vestibular therapy if needed. S/P CABG (coronary artery bypass graft) 01/27/20 18 Overview (01/27/2018): Three vessel January 2018. Urinary, incontinence, stress female 06/24/2017 Assessment & Plan (06/24/2017 4:36 PM CDT): Follow-up with Dr. Mtz as she directs. Vitamin D deficiency 04/17/2014 Overview (03/08/2017): Vitamin D deficiency Assessment & Plan (01/20/2024 2:35 PM IRISH MOSS OPERATOR): Continue current supplementation and check level in 1 year. Assessment & Plan (07/17/2023 12:00 PM CDT): Continue vitamin-D supplementation check level before next visit Assessment & Plan (12/06/2022 9:10 AM IRISH MOSS OPERATOR): Continue current supplementation and check level in 1 year. Assessment & Plan (12/05/2021 9:15 AM IRISH MOSS OPERATOR): Continue current supplementation and check level in 1 year. Assessment & Plan (05/30/2021 5:23 PM CDT): Continue current supplementation and check level before next visit. Assessment & Plan (11/01/2020 5:11 PM IRISH MOSS OPERATOR): Continue current supplementation and check level [...] changes Assessment & Plan (01/20/2024 2:35 PM IRISH MOSS OPERATOR): Blood pressure well controlled on indapamide and lisinopril metoprolol Assessment & Plan (07/17/2023 12:00 PM CDT): Blood pressure well controlled on indapamide, lisinopril, metoprolol Assessment & Plan (01/25/2022 12:34 PM IRISH MOSS OPERATOR): Patient with history of CAD Condition under control with medication No tachycardia - continue Metoprolol per PCP Assessment & Plan (08/27/2018 10:28 PM CDT): Continue current medication regimen. Assessment & Plan (01/27/2018 5:14 PM IRISH MOSS OPERATOR): Well controlled on metoprolol. Assessment & [...] intact. Assessment & Plan (01/20/2024 2:35 PM IRISH MOSS OPERATOR): A1c, LDL, and blood pressure currently well controlled on current regimen. Check a yearly diabetic eye exam and blood sugars daily. Monofilament testing is intact. Assessment & Plan (07/17/2023 12:00 PM CDT): A1c and blood pressure currently well controlled on current regimen. Check a yearly diabetic eye exam and blood sugars daily. Monofilament testing is intact. Assessment & Plan (12/06/2022 9:10 AM IRISH MOSS OPERATOR): A1c, LDL, and blood pressure currently [...] intact. Assessment & Plan (12/05/2021 9:15 AM IRISH MOSS OPERATOR): A1c, LDL, and blood pressure currently [...] intact. Assessment & Plan (11/01/2020 5:11 PM IRISH MOSS OPERATOR): A1c, LDL, and blood pressure currently [...] exercise. Assessment & Plan (01/29/2019 1:57 PM IRISH MOSS OPERATOR): Patient should reduce sugar and carbs, [...] months. Assessment & Plan (01/20/2024 2:34 PM IRISH MOSS OPERATOR): Continue rosuvastatin Vascepa for now and [...] well. Assessment & Plan (12/06/2022 9:11 AM IRISH MOSS OPERATOR): Well controlled on current therapy and will check a lipid panel and LFTs in 6 months. Assessment & Plan (06/05/2022 9:09 AM CDT): Well controlled on current therapy and will check a lipid panel and LFTs in 6 months. Assessment & Plan (12/05/2021 9:15 AM IRISH MOSS OPERATOR): Well controlled on current therapy and will check a lipid panel and LFTs in 6 months. Assessment & Plan (05/30/2021 5:24 PM CDT): Well controlled on current therapy and will check a lipid panel and LFTs in 6 months. Assessment & Plan (11/01/2020 5:11 PM IRISH MOSS OPERATOR): Well controlled on current therapy and [...] months. Assessment & Plan (01/29/2019 1:57 PM IRISH MOSS OPERATOR): Well controlled on current therapy and will check a lipid panel and LFTs in 6 months. Assessment & Plan (08/27/2018 10:28 PM CDT): Well controlled on current therapy and will check a lipid panel and LFTs in 6 months. Assessment & Plan (01/27/2018 5:14 PM IRISH MOSS OPERATOR): Continue Crestor and discussed PCSK9 inhibitor with her servicer coin machines. Assessment & Plan (06/24/2017 4:32 PM CDT): Well controlled on current therapy and will check a lipid panel and LFTs in twelve months. Atopic rhinitis 03/30/2013 Overview (03/08/2017): Allergic rhinitis Assessment & Plan (11/01/2020 5:11 PM IRISH MOSS OPERATOR): Continue Singular Assessment & Plan (08/27/2018 10:27 PM CDT): Continue Singulair. Assessment & Plan (06/24/2017 4:32 PM CDT): Well controlled on her Flonase and Xyzal. 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 Assessment & Plan (07/20/2024 2:27 PM CDT): Continue current medication regimen and follow up with the servicer coin machines as they direct. Assessment & Plan (01/20/2024 2:33 PM IRISH MOSS OPERATOR): Recommend diet exercise for LDL lowering and continuing her rosuvastatin for now and considering Zetia next visit if no improvement. Continue other medications and follow up with servicer coin machines as they direct. Assessment & Plan (07/17/2023 12:01 PM CDT): Continue current medication regimen and add Vascepa and follow-up with her servicer coin machines as they direct. Assessment & Plan (12/06/2022 9:11 AM IRISH MOSS OPERATOR): Continue current medication regimen follow up with servicer coin machines as they direct. Assessment & Plan (06/05/2022 9:09 AM CDT): Continue current medication regimen follow up with servicer coin machines as they direct. Assessment & Plan (12/05/2021 9:15 AM IRISH MOSS OPERATOR): Continue current medication regimen follow up with servicer coin machines as they direct. Assessment & Plan (05/30/2021 5:24 PM CDT): Continue aspirin, lisinopril, metoprolol, rosuvastatin and follow up with servicer coin machines as they direct Assessment & Plan (11/01/2020 5:12 PM IRISH MOSS OPERATOR): Aspirin, metoprolol, rosuvastatin follow-up with servicer coin machines as they direct. Assessment & Plan (04/29/2020 3:10 PM CDT): Continue current medication regimen and follow up with servicer coin machines as they direct. Assessment & Plan (10/02/2019 2:51 PM CDT): Continue lisinopril, metoprolol, rosuvastatin, aspirin follow up with servicer coin machines as they direct. Assessment & Plan (01/29/2019 1:58 PM IRISH MOSS OPERATOR): Current complaints seem atypical for cardiovascular disease. Continue monitoring blood pressure at home record and take her next Cardiology appointment in mid March. Assessment & Plan (08/27/2018 10:28 PM CDT): Continue rosuvastatin, metoprolol, lisinopril, aspirin follow up with servicer coin machines as they direct. Assessment & Plan (01/27/2018 5:13 PM IRISH MOSS OPERATOR): It appears that she has gone through successful coronary artery bypass grafting without difficulty. Continue current medication regimen follow up with servicer coin machines and cardiothoracic surgeon as they direct. Resolved Problems Problem Noted Date Diagnosed Date Resolved Date Encounter for screening colonoscopy 01/23/2024 11/04/2024 Hyperthyroidism 01/25/2022 06/07/2022 Assessment & Plan (01/25/2022 12:32 PM IRISH MOSS OPERATOR): Patient with history of sub-clinical hyperthyroidism [...] 07/20/2024 Assessment & Plan (12/05/2021 9:17 AM IRISH MOSS OPERATOR): Probable viral respiratory tract infection. Supportive [...] does not occur. Hypertensive heart disease w [facility] heart failure 10/28/2018 06/14/2021 Assessment & Plan (06/14/2021 2:13 PM CDT): Recommend DASH diet, heart-healthy lifestyle, exercise. Discussed the risks of hypertension. Assessment & Plan (05/30/2021 5:24 PM CDT): Well controlled on the current regimen. Avoidance of salt, proper body weight, and routine exercise recommended. Assessment & Plan (11/01/2020 5:12 PM IRISH MOSS OPERATOR): Well controlled on the current regimen. [...] pressures. Assessment & Plan (01/29/2019 1:58 PM IRISH MOSS OPERATOR): Monitor blood pressures closely over the next 2 weeks and call back if no improvement. Will likely increase lisinopril to 20 mg daily at that point Assessment & Plan (10/28/2018 3:15 PM IRISH MOSS OPERATOR): Well controlled on the current regimen. Avoidance of salt, proper body weight, and routine exercise recommended. Acute chest pain 01/09/2018 01/27/2018 Healthcare maintenance 06/24/201711/04 Assessment & Plan (01/20/2024 2:33 PM IRISH MOSS OPERATOR): Flu shot each September. Tetanus booster every 10 years. Shingrix recommended. Prevnar 20 today. Pneumovax 23 completed. COVID booster up-to-date. Mammogram and colonoscopy ordered. See her back in 6 months with lab sooner if needed. Assessment & Plan (12/06/2022 9:24 AM IRISH MOSS OPERATOR): Flu shot updated today. Tetanus booster every 10 years. Shingrix recommended. COVID booster recommended. Mammogram yearly. Follow-up the laborer syrup machine as they direct. Colonoscopy due and patient will call to schedule. Will see her back in 6 months with lab sooner if needed. Assessment & Plan (12/05/2021 9:16 AM IRISH MOSS OPERATOR): High-dose flu shot today. Tetanus booster every 10 years. COVID vaccine completed. Shingrix recommended. Mammogram yearly. Colonoscopy ordered. Follow-up the laborer syrup machine for breast exam and pelvic exam as they direct. Will see her back in 6 months with lab sooner if needed. Assessment & Plan (11/01/2020 5:12 PM IRISH MOSS OPERATOR): Flu shot each September. Tetanus booster every 10 years. Shingrix recommended. Mammogram yearly. Follow-up the laborer syrup machine for breast exam and pelvic exam as [...] due August 2020. Mammogram yearly. Follow-up the laborer syrup machine as they direct. We will see her back in 6 months with lab sooner if needed. Assessment & Plan (06/24/2017 4:36 PM CDT): Flu shot each September. Tetanus booster due October 08, 2019 or sooner with injury. Zostavax recommended. Must have a colonoscopy especially given her chronic abdominal pain. Finally agreeable and ordered. Follow-up with her laborer syrup machine for breast exam, pelvic exam, and Pap smear as he directs. Mammogram yearly. Bone density scan suggested and patient wishes to proceed with her laborer syrup machine regarding this. Will see her back in 6 months with a follow-up on her blood pressure, metabolic panel, and blood sugar sooner if needed. Abdominal pain, chronic, right lower quadrant 06/24/20 17 11/02/2024 Assessment & Plan (06/24/2017 4:33 PM CDT): CT urogram and cystoscopy unremarkable. Gynecological evaluation on Saturday. Colonoscopy ordered. Follow up if no improvement or if worsens. Encounters Date Type Department Care Team Description 03/02/2025 1:30 PM CDT Office Visit [facility] Primary Care at [facility] [address] [address] Earle Darby MD Healthcare maintenance (Primary Dx); Primary hypertension; Type 2 diabetes mellitus with hyperlipidemia (HCC); Hyperlipidemia, unspecified hyperlipidemia type; Coronary artery disease involving ass[place] and [place] tribes coronary artery of [place] and [place] tribes heart with angina pectoris; Postoperative hypothyroidism; Heart murmur 01/11/2025 6:10 AM IRISH MOSS OPERATOR Lab [address] [address] Screening for blood disease; Type 2 diabetes mellitus with hyperlipidemia (HCC); Postoperative hypothyroidism 12/24/2024 3:44 PM IRISH MOSS OPERATOR - 12/24/2024 11:59 PM IRISH MOSS OPERATOR Hospital Encounter [facility] [address] [place] [id number] Endometrial cancer (HCC) Discharge Disposition: Discharge to home or self care 12/24/2024 3:00 PM IRISH MOSS OPERATOR Office Visit [facility] Obstetrics and Gynecology [address] [facility] 13th [place] [address] [place] [address] Lexy Wagner NP Post-operative state (Primary Dx); Endometrial cancer (HCC) 12/24/[address] [facility] Medicine Gynecologic Oncology [facility] ([facility]) [address] [place] [address] Swetha Kurtz RN Endometrial cancer (HCC) (Primary Dx) 12/10/2024 9:30 AM IRISH MOSS OPERATOR Office Visit [facility] Cardiology [address] [facility] 8th [place] [address] [place] [address] Ronald Craig MD S/P CABG (coronary artery bypass graft) (Primary Dx); Essential hypertension; Hyperlipidemia, unspecified hyperlipidemia type from Last 3 Months Immunizations Immunization Administration Dates Next Due Influenza, [...] adsorbed 10/02/2019 Tdap 10/07/2009 ZOSTER Recombinant 05/15/2024,03/07/2024 Surgical History Surgery Date Site/Laterality Comments OTHER SURGICAL HISTORY 12/02/2003 - 12/01/2004 Rt Breast Lumpectomy DILATION AND CURETTAGE OF UTERUS DNC CORONARY ARTERY BYPASS GRAFT 01/13/2018 TRIPLE BYPASS BREAST BIOPSY 12/02/1999 - 12/01/2000 Right Breast biopsy Stereotactic BLADDER SUSPENSION 12/02/2015 - 12/01/2016 2015or 2016 THYROIDECTOMY 05/09/2022 HYSTERECTOMY 11/16/2024 Medical History Medical History Date Comments Hx Other Medical 2003 lemuel lemuel- skin disorder Hx Other Medical Former smoker Hx Other Medical mole removed ri ght arm - melanoma Hx Other Medical Melanoma in sit e excised 10/2014 ; Derm and Plasti Hypertension Hypertension Hx Other Medical low heart rate Hx Other Medical Stress Incontin ence - Bladder sling 03/2015, Dr Sifuentes Hx Other Medical Hematuria - neg ct and cysto -04/2015 Heart disease Generalized headaches Overweight Arthritis GERD (gastroesophageal reflux disease) Hyperthyroidism Papillary microcarcinoma of thyroid (HCC) 05/2022 Family History Medical History Relation Name Comments Heart attack Brother 4 Myocardial infa rction; Cause of : Myocardial infarction Heart attack Brother 5 Myocardial infa rction; Cause of : Myocardial infarction Other Brother 6 Five cardic reyes nts; Other Brother 7 Massive coronar y; Cause of : Massive coronary Heart failure Father Family history of heart failure - (Added by TW Conv) Coronary artery disease Mother Keisha nary artery disease; /Family history of coronary artery disease - (Added by TW Conv) Heart disease Mother Family history of cardiac disorder - (Added by TW Conv) Hyperlipidemia Mother Hyperlipidemi a; Hypertension Mother Hypertension; Other Mother Alive and well; /Heart Stents; /Cardic heart; Breast cancer Mother's Sister Other Sister 2 Alive and well; Anesthesia problems Neg Hx Ovarian cancer Neg Hx Thyroid cancer Neg Hx Relation Name Status Comments Brother 1 Brother 2 (Age 45) Brother 3 Brother 4 Brother 5 Brother 6 Brother 7 Father Mother Alive Mother's Sister Sister 1 Alive Sister 2 Social History Tobacco Use Types Packs/Day Years [...] on file Legal Sex Female 11:50 PM IRISH MOSS OPERATOR Gender Identity Female 09/15/2021 10:22 AM CDT Sexual Orientation Lesbian 09/15/2021 10 :22 AM CDT Obstetrics History Para Term AB IAB SAB Ectopic Multiple Livin g Live Births 3 1 1 2 2 Date Outcome GA Total Labor Labor/2nd/3rd Weight Sex Type Anes PTL Sasha A1 A5 Name Clin Term SAB SAB Last Filed Vital Signs Vital Sign Reading [...] 03/02/2025 1:10 PM CDT Plan of Treatment Health Maintenance Due Date Last Done Comments Hepatitis B Screening 1973 Osteoporosis Screening-Bone Density Scan 07/19/2019 07/19/2017 Colon Cancer Screening-Colonoscopy 08/23/2020 08/23/2017, 1955 Dilated Eye Exam 07/08/2022 07/08/2021 Breast Cancer Screening-Mammogram 02/02/2025 02/03/2024, 01/13/2022, 01/07/2021, Additional history exists Hemoglobin A1C 07/11/2025 01/11/2025, 11/01, 06/22/2024, Additional history exists Foot Exam 07/20/2025 07/20/2024, 07/02, 12/05/2021, Additional history exists Influenza Vaccine (Season Ended) 2025 12/14/2023, 12/06/2022, 12/05/2021, Additional history exists Fall Risk Assessment 11/16/2025 11/16/2024, 01/20/2024, 07/17/2023, Additional history exists Covid-19 Vaccine ( season) 2026 12/14/2023, 12/14/2023, 12/19/2022, Additional history exists Postponed from 08/02/2024 (Patient declined, but will receive in the future) Albumin Creatinine Ratio, Urine 01/11/2026 01/11/2025, 06/22/2024, 01/11/2024, Additional history exists Lipid Panel 01/11/2026 01/11/2025, 06/02, 01/11/2024, Additional history exists eGFR 01/11/2026 01/11/2025, 11/01, 06/22/2024, Additional history exists Depression Screening 03/02/2026 03/02/2025, 01/20/2024, 07/17/2023, Additional history exists Well Visit 65+ 03/02/2026 03/02/2025, 01/02, 12/06/2022, Additional history exists DTaP/Tdap/Td Vaccine (3 - Td or Tdap) 10/02/2029 10/02/2019, 10/07/2009 Colon Cancer Screening-CT Colonography Discontinued 08/23/2017, 1955 Colon Cancer Screening-DNA Stool Discontinued 08/23/2017, 1955 Colon Cancer Screening-FIT Discontinued 08/23/2017, Colon Cancer Screening-Sigmoidoscopy Discontinued 08/23/2017, 1955 Hepatitis C Screening Completed 12/16/2017, 018 Pneumococcal vaccine 65+ Completed 01/20/2024, 07/03 Zoster Vaccine Completed 05/15/2024, 03/07/2024 Procedures Procedure Name Priority Date/Time Associated Diagnosis Comments EGFR Routine 01/11/2025 6:16 AM IRISH MOSS OPERATOR Type 2 diabetes mellitus with hyperlipidemia (HCC) DIFFERENTIAL AUTO Routine 01/11/2025 6:1 6 AM IRISH MOSS OPERATOR Screening for blood disease ALBUMIN CREATININE RATIO, URINE Routine 01/11/2025 6:16 AM IRISH MOSS OPERATOR Type 2 diabetes mellitus with hyperlipidemia (HCC) HEMOGLOBIN A1C Routine 01/11/2025 6:16 AM IRISH MOSS OPERATOR Type 2 diabetes mellitus with hyperlipidemia (HCC) THYROID FUNCTION CASCADE Routine 01/11/2025 6:16 AM IRISH MOSS OPERATOR Postoperative hypothyroidism LIPID PANEL Routine 01/11/2025 6:16 AM IRISH MOSS OPERATOR Type 2 diabetes mellitus with hyperlipidemia (HCC) COMPREHENSIVE METABOLIC PANEL Routine 01/11/2025 6:16 AM IRISH MOSS OPERATOR Type 2 diabetes mellitus with hyperlipidemia (HCC) CBC WITH AUTO DIFFERENTIAL Routine 01/11/2025 6:16 AM IRISH MOSS OPERATOR Screening for blood disease XR CHEST PA LATERAL 2 VIEWS Schedule Routine, Read Routine (OP Routine) 12/24/2024 3:51 PM IRISH MOSS OPERATOR Endometrial cancer (HCC) SCREENING MAMMOGRAM BILATERAL W ABIMBOLA Schedule Routine, Read Routine (OP Routine) 02/03/2024 3:47 PM IRISH MOSS OPERATOR Visit for screening mammogram DIABETIC EYE EXAM Routine 07/08/2021 HEPATITIS C AB REFLEX RNA QUANT PCR Routine 12/16/2017 7:04 AM IRISH MOSS OPERATOR COLONOSCOPY REPORT 08/23/2017 HM DEXA SCAN Routine 07/19/2017 from Last 3 Months or Most Recently Relevant to Health Maintenance Results * eGFR (01/11/2025 6:16 AM IRISH MOSS OPERATOR) eGFR >90 >=60 mL/min/1. 73 m2 [...] last reviewed 2021. Blood 01/11/2025 6:16 AM IRISH MOSS OPERATOR 01/11/2025 7:00 AM IRISH MOSS OPERATOR us Earle Darby MD LAB BLOOD ORDERABLES Final R esult [facility] Department [place] [address] * (ABNORMAL) Differential, auto (01/11/2025 6:16 AM IRISH MOSS OPERATOR) Neutrophil abs 6.0 1.5 - 6.5 [...] revised on 2018. Basophil pct 0.4 % [facility] ([place]) Comment: Interpretive Data Percent cell count reference ranges are not reported, since discordance with absolute values may lead to misinterpretation of CBC data. Current Interpretive Data was last revised on 2018. Blood 01/11/2025 6:16 AM IRISH MOSS OPERATOR 01/11/2025 7:00 AM IRISH MOSS OPERATOR us Earle Darby MD LAB BLOOD ORDERABLES Final R esult [facility] ([place]) 1 [facility] Department [place] [address] * Thyroid Function [place] (01/11/2025 6:16 AM IRISH MOSS OPERATOR) TSH 1.61 0.30 - 4.20 mcIUnit/mL Blood 01/11/2025 6:16 AM IRISH MOSS OPERATOR 01/11/2025 7:00 AM IRISH MOSS OPERATOR Earle Darby MD LAB BLOOD ORDERABLES Final R esult [facility] ([place]) [address] [facility] [place] [address] * (ABNORMAL) CBC with auto differential (01/11/2025 6:16 AM IRISH MOSS OPERATOR) Pathologist [facility] WBC 10.2(H) 3.8 - 9.9 K/cumm Hgb 16.1(H) 11.9 - 15.5 g/dL [facility] ([place]) Hct 50.0(H) 35.6 - 45.5 % [facility] ([place]) Plt 201 150 - 400 K/cumm [facility] ([place]) MPV 8.8(L) 9.1 - 12.3 fL [facility] ([place]) RBC 5.46(H) 3.90 - 5.20 M/cumm [facility] ([place]) MCV 91.6 81.3 - 96.4 fL [facility] ([place]) MCH 29.5 27.1 - 33.3 pg [facility] ([place]) MCHC 32.2(L) 32.3 - 35.7 g/dL [facility] ([place]) RDW CV 14.3 11.1 - 14.9 % [facility] ([place]) RDW SD 47.8 35.7 - 48.1 fL [facility] ([place]) NRBC abs 0.00 0.00 - 0.01 K/cumm [facility] ([place]) Blood 01/11/2025 6:16 AM IRISH MOSS OPERATOR 01/11/2025 7:00 AM IRISH MOSS OPERATOR Earle Darby MD LAB BLOOD ORDERABLES Final R esult [facility] ([place]) 1 [facility] [place] [address] * Albumin Creatinine Ratio, Urine (01/11/2025 6:16 AM IRISH MOSS OPERATOR) Pathologist [facility] Albumin Ur <12.0 mg/L Comment: Interpretive Data No reference range established. Current interpretive data was last revised 2019. Testing performed by: [facility], [address] [place] [address]., [id number] Creatinine Ur 147.2 mg/dL [facility] ([place]) Comment: Interpretive Data No reference range established. Current interpretive data was last revised 2019. Testing performed by: [facility], [address] [place] [address]., [id number] Albumin Creatinine Ratio, Ur <8 1 - 29 mg/g [facility] ([place]) Comment:Testing performed by : [facility], [address] [place] [address]., [id number] Urine 01/11/2025 6:16 AM IRISH MOSS OPERATOR 01/11/2025 11:03 AM IRISH MOSS OPERATOR Earle Darby MD LAB URINE ORDERABLES Final R esult Performing Organization Address City/State/[facility] Co de Phone Number [facility] ([place]) [address] [place] [address] * (ABNORMAL) Hemoglobin A1c (01/11/2025 6:16 AM IRISH MOSS OPERATOR) Pathologist [facility] Hgb A1C 7.0(H) 4.0 - 5.6 % Estimated Average Glucose 154 mg/dL [facility] ([place]) Comment: The ADA recommends reporting an estimated Average Glucose (eAG) with all Hemoglobin A1c results using the equation derived from a study of 507 normal and diabetic adults. Minority populations were underrepresented and children were not included. (Diabetes Care 31:7107-6705, 2008). The eAG is not equivalent to a fasting glucose. Blood 01/11/2025 6:16 AM IRISH MOSS OPERATOR 01/11/2025 7:00 AM IRISH MOSS OPERATOR us Earle Darby MD LAB BLOOD ORDERABLES Final R esult [facility] ([place]) 1 [facility] Department [place] [address] * (ABNORMAL) Lipid panel (01/11/2025 6:16 AM IRISH MOSS OPERATOR) Cholesterol 205(H) 30 - 199 mg/dL [...] mg/dL High: >160 mg/dL Calculated using the Rob LDL-C estimating equation. This equation was implemented on 2024. Prior to this date LDL-C was estimated using the Friedewald equation. Literature References: 1. Expert Panel on Integrated Guidelines for Cardiovascular Health and Risk Reduction in Children and Adolescents. Pediatrics 2011;128:S213 2. NCEP Expert Panel. Circulation 2004;110:227 3. oRb Bob et al. AIMEE Cardiol. 2019April 01;5(5):540-548. [...] TRANG [facility] ([place]) Blood 01/11/2025 6:16 AM IRISH MOSS OPERATOR 01/11/2025 7:00 AM IRISH MOSS OPERATOR Narrative [facility] ([place]) - 01/11/2025 7:50 AM IRISH MOSS OPERATOR Has the patient been fasting for 8 hours or more?->Yes us Earle Darby MD LAB BLOOD ORDERABLES Final R esult [facility] ([place]) 1 [facility] Department [place] [address] * Comprehensive metabolic panel (01/11/2025 6:16 AM IRISH MOSS OPERATOR) Sodium 141 135 - 145 mmol/L Potassium, pl 4.4 3.3 - 4.9 mmol/L [facility] ([place]) Chloride 100 97 - 110 mmol/L [...] ([place]) Comment:Slightly Hemolyzed S pecimen Blood 01/11/2025 6:16 AM IRISH MOSS OPERATOR 01/11/2025 7:00 AM IRISH MOSS OPERATOR Narrative [facility] ([place]) - 01/11/2025 7:50 AM IRISH MOSS OPERATOR Has the patient fasted?->Yes us Earle Darby MD LAB BLOOD ORDERABLES Final R esult [facility] ([place]) 1 [facility] Department [place] [address] * XR Chest Pa Lateral 2 Views (12/24/2024 3:51 PM IRISH MOSS OPERATOR) Anatomical Region Laterality Modality Body, Chest N/A Computed Radiogr aphy 12/24/2024 4:56 PM IRISH MOSS OPERATOR Impressions 12/24/2024 9:36 PM IRISH MOSS OPERATOR Comparison is made to 08/07/2020. Sternotomy wires are intact and aligned. Lungs are clear with no consolidation. No pleural effusion or pneumothorax. Cardiomediastinal silhouette is unchanged. Dictated by: Michelet Barraza M.D. The radiology attending physician has personally reviewed this study, and had reviewed and/or edited this written report and agrees with it. Electronically signed by: Gonzalez Fitzgerald M.D. Narrative 12/24/2024 9:36 PM IRISH MOSS OPERATOR EXAMINATION: 2 view chest radiograph Procedure [...] it. Electronically signed by: Gonzalez Fitzgerald M.D. us Elena Monreal MD IMG XR PROCEDURES Final R esult * SCREENING MAMMOGRAM BILATERAL W ABIMBOLA (02/03/2024 3:47 PM IRISH MOSS OPERATOR) Anatomical Region Laterality Modality Breast Bilateral Mammography 02/03/2024 3:54 PM IRISH MOSS OPERATOR Impressions 02/03/2024 3:54 PM IRISH MOSS OPERATOR There is no mammographic evidence of malignancy. A 1 year screening mammogram is recommended. BI-RADS: 2 - Benign. The patient has been or will be contacted. The patient will be entered into a reminder system with a target due date of 1 year for her next mammogram. Electronically signed by: MAGDI WALKER Narrative 02/03/2024 3:54 PM IRISH MOSS OPERATOR EXAMINATION: SCREENING MAMMOGRAM BILATERAL W ABIMBOLA [...] R esult * Diabetic Eye Exam (07/08/2021) Historical Provider HEALTH MAINTENANCE Final Result * Hepatitis C Antibody Reflex Hepatitis C RNA Quantitative PCR (12/16/2017 7:04 AM IRISH MOSS OPERATOR) Hep C Ab Negative Negative [facility] Blood specimen (specimen) 12/16/2017 7:04 AM IRISH MOSS OPERATOR 12/16/2017 2:34 PM IRISH MOSS OPERATOR Narrative [facility] - 12/16/2017 3:41 PM IRISH MOSS OPERATOR Earle Darby MD LAB MICROBIOLOGY - GENERAL O RDERABLES Final Result [facility] [address] [place] [address] * COLONOSCOPY REPORT (08/23/2017) Anatomical Region Laterality Modality Other Provider Scanning GI PROCEDURE ORDERABLES Final Result * HM DEXA SCAN (07/19/2017) DEXA Scan Normal us Historical Provider HEALTH MAINTENANCE Final Result from Last 3 Months or Most Recently Relevant to Health Maintenance Insurance [facility] Address: [address] [address] [place] [address] [facility] Address: [address] [address] [place] [address] MEDICARE MEDICARE [facility] Advance Directives For more information, please contact: [phone] * Full Code (Latest Code Status on File) Date Activated Date Inactivated Comments 05/09/2022 7:33 PM 05/10/2022 2:57 PM * Full Code Date Activated Date Inactivated Comments 01/08/2018 7:23 PM 01/11/2018 4:53 PM Care Teams Jail Manager Relationship Specialty Start Date End Date Earle Darby MD [address] [facility] [address], [place] [address] PCP - General Internal Medicine 10/09/24 Fabian Matute MD [address] [place] [address] [address] [place] [address] Consulting Physician Endocrinology 02/07/22 Rahat Jean Baptiste MD [address] [facility] [address] [place] [address] Referring Physician Obstetrics and Gynecology 12/23/24
--- OUTSIDE RECORDS SUMMARY | 2025-03-07 10:50 | XMS_ITS | Clinical Summary ---
Author Organization [facility] Address [address] [facility] [place] [address] Care Team Providers Care Hiv Counselor Name Role Phone Álvaro Darby MD Primary Care Provider [phone] Source Comments [facility],non-owned Affiliates and Associated Physician Practices is amultiple site organization consisting of ambulatory clinics and hospital sitesin [place], [place], [place]. This disclosure is being madepursuant to the Care Everywhere program and may not contain all information available regarding this patient. Last updated 18.[facility] Allergies No known active allergies Medications * Be aware that medications may not be up to date on this document. Alwaysverify current medications with the patient. Medication Sig Dispensed Refills Start Date End Date Status LISINOPRIL PO Active Rosuvastatin Calcium (CRESTOR PO) Active METOPROLOL SUCCINATE PO A ctive Montelukast Sodium (SINGULAIR PO) Active aspirin (ASPIRIN) 81 MG tablet Take 81 mg by mouth once daily Active Nutritional Supplements (VITAMIN D BOOSTER PO) Ac tive Active Problems No known active problems Encounters Date Type Department Care Team Description 03/04/2025 Lab Requisition [facility] [address] [place] [id number] Raquel Negrete MD from Last 3 Months Social History Tobacco Use Types Packs/Day Years Used Date Smoking Tobacco: Former Smokeless Tobacco: Never Sex and Gender Information Value Date Recorded Sex Assigned at Not on file Gender Identity Not on file Sexual Orientation Not on file Last Filed Vital Signs Vital Sign Reading Time Taken Comments Blood Pressure 118/72 08/01/2019 10:05 AM CDT Pulse 68 08/01/2019 10:05 AM CDT Temperature 37 C (98.6 F) 08/01/2019 10:05 AM CDT Respiratory Rate 17 08/01/2019 10:05 AM CDT Oxygen Saturation 94% 03/07/2017 2:59 PM CDT Inhaled Oxygen Concentration - - Weight 102.1 kg (225 lb) 08/01/2019 10:05 AM CDT Height 171.5 cm (5' 7.5 ) 08/01/2019 10:05 AM CD T Body Mass Index 34.72 08/01/2019 10:05 AM CDT Plan of Treatment Health Maintenance Due Date Last Done Comments BONE DENSITY TESTING 1955 COLOGUARD (AGES 45-75) - COLON CA SCREENING 1956 COLON MONITORING 1956 COLONOSCOPY - COLON CA SCREENING 1956 CT COLONOGRAPHY - COLON CA SCREENING 1956 Colorectal Cancer Screening 1956 FIT - COLON CA SCREENING 1956 FLEX SIG - COLON CA SCREENING 1956 MAMMOGRAM 1956 HEPATITIS C SCREENING 01/13/1974 DTAP/TDAP/TD VACCINES (1 - Tdap) 1975 PNEUMOCOCCAL VACCINE 50+ (1 of 1 - PCV) 2006 ZOSTER VACCINE (1 of 2) 2006 SCREENING FOR DIABETES 08/01/2019 COVID-19 VACCINE (1 - season) 2024 DEPRESSION SCREENING 12/02/2024 INFLUENZA VACCINE (Season Ended) 2025 09/15/2018, 09/01/2017, 09/03/2016, Additional history exists Respiratory Syncytial Virus (RSV) Vaccine Pt: or over 60 yrs (1 - 1-dose 75+ series) 2031 HEPATITIS B VACCINE Aged Out No longe r eligible based on patient's age to complete this topic HIB VACCINE Aged Out No longer eligi ble based on patient's age to complete this topic HPV VACCINE Aged Out No longer eligi ble based on patient's age to complete this topic MENINGOCOCCAL (Group B) VACCINE SHARED DECISION-MAKING Aged Out No longer eligible based on patient's age to complete this topic MENINGOCOCCAL GROUPS A/C/Y/W VACCINE Aged Out No longer eligible based on patient's age to complete this topic Care Teams Hiv Counselor Relationship Specialty Start Date End Date Álvaro Darby MD PCP - General Internal Medicine 03/07/17
[2025-03-07 12:07] LABS: Basophils Percent Auto 0.4 % (0.2-1.2); Eosinophils Absolute Auto 0.1 K/mm3 (0-0.3); Eosinophils Percent Auto 0.6 % (0-4.4); Hematocrit 49.1 % (37.0-47.0); Hemoglobin 15.7 g/dL (12.0-15.0); Immature Granulocyte Absolute 0.06 K/mm3 (0.00-0.031); Immature Granulocyte Percent A 0.5 % (0-0.5); Lymphocytes Percent Auto 25.4 % (18.3-44.2); Mean Corpuscular Hemoglobin 29.2 pg (26-34); Mean Corpuscular Volume 91.4 fl (80-100); Mean Platelet Volume 8.9 fl (7.4-10.4); Monocytes Absolute Auto 0.5 K/mm3 (0.1-0.6); Monocytes Percent Auto 4.4 % (2.6-8.5); Neutrophils Absolute Auto 7.8 K/mm3 (1.3-6.7); Neutrophils Percent Auto 68.7 % (45.5-73.1); Platelet Count Result 201 k/mm3 (150-375); Red Blood Count 5.37 M/mm3 (4.2-5.4); Red Cell Distribution Width 14.3 % (11.5-14.5); White Blood Count 11.4 K/mm3 (4.5-10.0)
--- OUTSIDE RECORDS SUMMARY | 2025-03-07 12:15 | XMS_ITS | Referral Summary ---
Author Organization [facility] Address [address] [place] [address] Care Team Providers Care Subassembler Name Role Phone Fabian Matute MD Unavailable [phone] aErle Darby MD Primary Care Provider [phone] Rahat Jean Baptiste MD Unavailable [phone] Encounters Date Type Department Care Team Description 03/02/2025 1:30 PM CDT Office Visit [facility] Primary Care at [facility] [address] [phone] Earle Darby MD Healthcare maintenance (Primary Dx); Primary hypertension; Type 2 diabetes mellitus with hyperlipidemia (HCC); Hyperlipidemia, unspecified hyperlipidemia type; Coronary artery disease involving [place] coronary artery of [place] heart with angina pectoris; Postoperative hypothyroidism; Heart murmur 01/11/2025 6:10 AM BOTTOM STOP ATTACHER Lab [address] [phone] Screening for blood disease; Type 2 diabetes mellitus with hyperlipidemia (HCC); Postoperative hypothyroidism 12/24/2024 3:44 PM BOTTOM STOP ATTACHER - 12/24/2024 11:59 PM BOTTOM STOP ATTACHER Hospital Encounter [facility] Radiology [facility] [address] [place] [id number] Endometrial cancer (HCC) Discharge Disposition: Discharge to home or self care 12/24/2024 Orders Only [facility] Gynecologic On[facility]) [address] [place] [address] [place] [address] Swetha Kurtz RN Endometrial cancer (HCC) (Primary Dx) 12/24/2024 3:00 PM BOTTOM STOP ATTACHER Office Visit [facility] Obstetrics and Gynecology [address] [place] [address] [place] [phone] Lexy Wagner NP Post-operative state (Primary Dx); Endometrial cancer (HCC) 12/10/2024 9:30 AM BOTTOM STOP ATTACHER Office Visit [facility] Cardiology [address] [place] [address] [place] [phone] Ronald Craig MD S/P CABG (coronary artery [...] 1 tablet (150 mcg total) by mouth geospatial information scientist before breakfast 90 tablet 3 07/20/20 24 [...] 12/06/2022 Assessment & Plan (12/06/2022 9:11 AM BOTTOM STOP ATTACHER): Repeat CBC in 6 months. Class 2 obesity with body ma ss index (BMI) of 35.0 to 35.9 in adult 12/06/2022 Assessment & Plan (12/06/2022 9:25 AM BOTTOM STOP ATTACHER): Patient is encouraged to lose weight with a combination of caloric reduction and increased exercise. 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 Also refer to endocrinology for history of thyroidectomy for papillary microcarcinoma. Assessment & Plan (01/20/2024 2:35 PM BOTTOM STOP ATTACHER): Continue current dose of levothyroxine check TSH [...] results. Assessment & Plan (10/08/2022 8:35 AM BOTTOM STOP ATTACHER): Patient is clinically euthyroid TSH was 0.26 [...] (06/06/2022): Added automatically from request for surgery [id number] Papillary microcarcinoma of thyroid 06/05/2022 Overview (06/05/2022): S/p excision 05/2022 Assessment & Plan (11/01/2024 8:01 PM BOTTOM STOP ATTACHER): MNG s/p total thyroidectomy on 05/09/22 Micro-papillary thyroid cancer Patient recently had a thyroid ultrasound, noted stable findings Assessment & Plan (04/08/2023 9:14 AM CDT): MNG s/p total thyroidectomy on 05/09/22 Micro-papillary thyroid cancer - we will monitor - she will have thyroid ultrasound next month with Dr. Hernandez. Assessment & Plan (10/08/2022 8:35 AM BOTTOM STOP ATTACHER): MNG s/p total thyroidectomy on 05/09/22 Micro-papillary [...] (04/17/2022): Added automatically from request for surgery [id number] Chronic pain of left knee 12/05/2021 Overview [...] knee. Assessment & Plan (12/05/2021 9:17 AM BOTTOM STOP ATTACHER): Probably loose body or meniscal tear based on history. Currently asymptomatic. Recommend orthopedic referral if worsens. Gastroesophageal reflux disease without esophagi tis 11/01/2020 Assessment & Plan (11/01/2020 5:12 PM BOTTOM STOP ATTACHER): If becomes more frequent, would recommend Pepcid daily. Rotator cuff tendinitis, right 10/02/2019 Subacromial bursitis 10/02/2019 S/P thyroidectomy 08/27/2018 Overview (06/05/2022): Path with 2 papillary microacarcinomas Assessment & Plan (07/17/2023 12:02 PM CDT): Continue levothyroxine check TSH and free T4 before next visit and follow-up with endocrinology and her surgeon as they direct. Assessment & Plan (12/06/2022 9:11 AM BOTTOM STOP ATTACHER): Follow-up with Dr. Matute as he directs. Assessment & Plan (06/05/2022 9:06 AM CDT): F/u with surgeon and Dr Matute as they direct. Assessment & Plan (12/05/2021 9:16 AM BOTTOM STOP ATTACHER): Seems fairly asymptomatic and will check TSH and free T4 before next visit and refer to Endocrinology if necessary. Assessment & Plan (05/30/2021 5:24 PM CDT): Currently asymptomatic and will check TSH and free T4 before next visit. Assessment & Plan (11/01/2020 5:12 PM BOTTOM STOP ATTACHER): Asymptomatic and thyroid levels are normal. Assessment & Plan (10/02/2019 2:50 PM CDT): Asymptomatic and thyroid levels normal. Assessment & Plan (01/29/2019 1:58 PM BOTTOM STOP ATTACHER): Asymptomatic and will check thyroid labs again before next visit. Benign paroxysmal positional vertigo 06/02/2018 Assessment & Plan (12/06/2022 9:12 AM BOTTOM STOP ATTACHER): Recommend meclizine as needed. Call back for vestibular therapy if needed. S/P CABG (coronary artery bypass graft) 01/27/20 18 Overview (01/27/2018): Three vessel January 2018. Urinary, incontinence, stress female 06/24/2017 Assessment & Plan (06/24/2017 4:36 PM CDT): Follow-up with Dr. Mtz as she directs. Vitamin D deficiency 04/17/2014 Overview (03/08/2017): Vitamin D deficiency Assessment & Plan (01/20/2024 2:35 PM BOTTOM STOP ATTACHER): Continue current supplementation and check level in 1 year. Assessment & Plan (07/17/2023 12:00 PM CDT): Continue vitamin-D supplementation check level before next visit Assessment & Plan (12/06/2022 9:10 AM BOTTOM STOP ATTACHER): Continue current supplementation and check level in 1 year. Assessment & Plan (12/05/2021 9:15 AM BOTTOM STOP ATTACHER): Continue current supplementation and check level in 1 year. Assessment & Plan (05/30/2021 5:23 PM CDT): Continue current supplementation and check level before next visit. Assessment & Plan (11/01/2020 5:11 PM BOTTOM STOP ATTACHER): Continue current supplementation and check level in [...] changes Assessment & Plan (01/20/2024 2:35 PM BOTTOM STOP ATTACHER): Blood pressure well controlled on indapamide and lisinopril metoprolol Assessment & Plan (07/17/2023 12:00 PM CDT): Blood pressure well controlled on indapamide, lisinopril, metoprolol Assessment & Plan (01/25/2022 12:34 PM BOTTOM STOP ATTACHER): Patient with history of CAD Condition under control with medication No tachycardia - continue Metoprolol per PCP Assessment & Plan (08/27/2018 10:28 PM CDT): Continue current medication regimen. Assessment & Plan (01/27/2018 5:14 PM BOTTOM STOP ATTACHER): Well controlled on metoprolol. Assessment & Plan [...] intact. Assessment & Plan (01/20/2024 2:35 PM BOTTOM STOP ATTACHER): A1c, LDL, and blood pressure currently well controlled on current regimen. Check a yearly diabetic eye exam and blood sugars daily. Monofilament testing is intact. Assessment & Plan (07/17/2023 12:00 PM CDT): A1c and blood pressure currently well controlled on current regimen. Check a yearly diabetic eye exam and blood sugars daily. Monofilament testing is intact. Assessment & Plan (12/06/2022 9:10 AM BOTTOM STOP ATTACHER): A1c, LDL, and blood pressure currently well controlled on current regimen. Check a yearly diabetic eye exam and blood sugars daily. Monofilament testing is intact. Assessment & Plan (06/05/2022 9:09 AM CDT): A1c, LDL, and blood pressure currently well controlled on current regimen. Check a yearly diabetic eye exam and blood sugars daily. Monofilament testing is intact. Assessment & Plan (12/05/2021 9:15 AM BOTTOM STOP ATTACHER): A1c, LDL, and blood pressure currently well controlled on current regimen. Check a yearly diabetic eye exam and blood sugars daily. Monofilament testing is intact. Assessment & Plan (05/30/2021 5:23 PM CDT): A1c, LDL, and blood pressure currently well controlled on current regimen. Check a yearly diabetic eye exam and blood sugars daily. Monofilament testing is intact. Assessment & Plan (11/01/2020 5:11 PM BOTTOM STOP ATTACHER): A1c, LDL, and blood pressure currently well [...] exercise. Assessment & Plan (01/29/2019 1:57 PM BOTTOM STOP ATTACHER): Patient should reduce sugar and carbs, increase [...] months. Assessment & Plan (01/20/2024 2:34 PM BOTTOM STOP ATTACHER): Continue rosuvastatin Vascepa for now and consider [...] well. Assessment & Plan (12/06/2022 9:11 AM BOTTOM STOP ATTACHER): Well controlled on current therapy and will check a lipid panel and LFTs in 6 months. Assessment & Plan (06/05/2022 9:09 AM CDT): Well controlled on current therapy and will check a lipid panel and LFTs in 6 months. Assessment & Plan (12/05/2021 9:15 AM BOTTOM STOP ATTACHER): Well controlled on current therapy and will check a lipid panel and LFTs in 6 months. Assessment & Plan (05/30/2021 5:24 PM CDT): Well controlled on current therapy and will check a lipid panel and LFTs in 6 months. Assessment & Plan (11/01/2020 5:11 PM BOTTOM STOP ATTACHER): Well controlled on current therapy and will [...] months. Assessment & Plan (01/29/2019 1:57 PM BOTTOM STOP ATTACHER): Well controlled on current therapy and will check a lipid panel and LFTs in 6 months. Assessment & Plan (08/27/2018 10:28 PM CDT): Well controlled on current therapy and will check a lipid panel and LFTs in 6 months. Assessment & Plan (01/27/2018 5:14 PM BOTTOM STOP ATTACHER): Continue Crestor and discussed PCSK9 inhibitor with her data integration architect. Assessment & Plan (06/24/2017 4:32 PM CDT): Well controlled on current therapy and will check a lipid panel and LFTs in twelve months. Atopic rhinitis 03/30/2013 Overview (03/08/2017): Allergic rhinitis Assessment & Plan (11/01/2020 5:11 PM BOTTOM STOP ATTACHER): Continue Singular Assessment & Plan (08/27/2018 10:27 PM CDT): Continue Singulair. Assessment & Plan (06/24/2017 4:32 PM CDT): Well controlled on her Flonase and Xyzal. Coronary artery disease invo lving [place] heart with angina pectoris Assessment & Plan (03/02/2025 1:53 PM CDT): Continue current medication regimen and follow up with the data integration architect as they direct. Assessment & Plan (07/20/2024 2:27 PM CDT): Continue current medication regimen and follow up with the data integration architect as they direct. Assessment & Plan (01/20/2024 2:33 PM BOTTOM STOP ATTACHER): Recommend diet exercise for LDL lowering and continuing her rosuvastatin for now and considering Zetia next visit if no improvement. Continue other medications and follow up with data integration architect as they direct. Assessment & Plan (07/17/2023 12:01 PM CDT): Continue current medication regimen and add Vascepa and follow-up with her data integration architect as they direct. Assessment & Plan (12/06/2022 9:11 AM BOTTOM STOP ATTACHER): Continue current medication regimen follow up with data integration architect as they direct. Assessment & Plan (06/05/2022 9:09 AM CDT): Continue current medication regimen follow up with data integration architect as they direct. Assessment & Plan (12/05/2021 9:15 AM BOTTOM STOP ATTACHER): Continue current medication regimen follow up with data integration architect as they direct. Assessment & Plan (05/30/2021 5:24 PM CDT): Continue aspirin, lisinopril, metoprolol, rosuvastatin and follow up with data integration architect as they direct Assessment & Plan (11/01/2020 5:12 PM BOTTOM STOP ATTACHER): Aspirin, metoprolol, rosuvastatin follow-up with data integration architect as they direct. Assessment & Plan (04/29/2020 3:10 PM CDT): Continue current medication regimen and follow up with data integration architect as they direct. Assessment & Plan (10/02/2019 2:51 PM CDT): Continue lisinopril, metoprolol, rosuvastatin, aspirin follow up with data integration architect as they direct. Assessment & Plan (01/29/2019 1:58 PM BOTTOM STOP ATTACHER): Current complaints seem atypical for cardiovascular disease. Continue monitoring blood pressure at home record and take her next Cardiology appointment in mid March. Assessment & Plan (08/27/2018 10:28 PM CDT): Continue rosuvastatin, metoprolol, lisinopril, aspirin follow up with data integration architect as they direct. Assessment & Plan (01/27/2018 5:13 PM BOTTOM STOP ATTACHER): It appears that she has gone through successful coronary artery bypass grafting without difficulty. Continue current medication regimen follow up with data integration architect and cardiothoracic surgeon as they direct. Resolved Problems Problem Noted Date Diagnosed Date Resolved Date Encounter for screening colonoscopy 01/23/2024 11/04/2024 Hyperthyroidism 01/25/2022 06/07/2022 Assessment & Plan (01/25/2022 12:32 PM BOTTOM STOP ATTACHER): Patient with history of sub-clinical hyperthyroidism since [...] 07/20/2024 Assessment & Plan (12/05/2021 9:17 AM BOTTOM STOP ATTACHER): Probable viral respiratory tract infection. Supportive care [...] recommended. Assessment & Plan (11/01/2020 5:12 PM BOTTOM STOP ATTACHER): Well controlled on the current regimen. Avoidance [...] pressures. Assessment & Plan (01/29/2019 1:58 PM BOTTOM STOP ATTACHER): Monitor blood pressures closely over the next 2 weeks and call back if no improvement. Will likely increase lisinopril to 20 mg daily at that point Assessment & Plan (10/28/2018 3:15 PM BOTTOM STOP ATTACHER): Well controlled on the current regimen. Avoidance of salt, proper body weight, and routine exercise recommended. Acute chest pain 01/09/2018 01/27/2018 Healthcare maintenance 06/24/201711/04 Assessment & Plan (01/20/2024 2:33 PM BOTTOM STOP ATTACHER): Flu shot each September. Tetanus booster every 10 years. Shingrix recommended. Prevnar 20 today. Pneumovax 23 completed. COVID booster up-to-date. Mammogram and colonoscopy ordered. See her back in 6 months with lab sooner if needed. Assessment & Plan (12/06/2022 9:24 AM BOTTOM STOP ATTACHER): Flu shot updated today. Tetanus booster every 10 years. Shingrix recommended. COVID booster recommended. Mammogram yearly. Follow-up the manager reporting as they direct. Colonoscopy due and patient will call to schedule. Will see her back in 6 months with lab sooner if needed. Assessment & Plan (12/05/2021 9:16 AM BOTTOM STOP ATTACHER): High-dose flu shot today. Tetanus booster every 10 years. COVID vaccine completed. Shingrix recommended. Mammogram yearly. Colonoscopy ordered. Follow-up the manager reporting for breast exam and pelvic exam as they direct. Will see her back in 6 months with lab sooner if needed. Assessment & Plan (11/01/2020 5:12 PM BOTTOM STOP ATTACHER): Flu shot each September. Tetanus booster every 10 years. Shingrix recommended. Mammogram yearly. Follow-up the manager reporting for breast exam and pelvic exam as [...] due August 2020. Mammogram yearly. Follow-up the manager reporting as they direct. We will see her back in 6 months with lab sooner if needed. Assessment & Plan (06/24/2017 4:36 PM CDT): Flu shot each September. Tetanus booster due October 08, 2019 or sooner with injury. Zostavax recommended. Must have a colonoscopy especially given her chronic abdominal pain. Finally agreeable and ordered. Follow-up with her manager reporting for breast exam, pelvic exam, and Pap smear as he directs. Mammogram yearly. Bone density scan suggested and patient wishes to proceed with her manager reporting regarding this. Will see her back in [...] on file Legal Sex Female 11:50 PM BOTTOM STOP ATTACHER Gender Identity Female 09/15/2021 10:22 AM CDT [...] Diagnosis Comments EGFR Routine 01/11/2025 6:16 AM BOTTOM STOP ATTACHER Type 2 diabetes mellitus with hyperlipidemia (HCC) DIFFERENTIAL AUTO Routine 01/11/2025 6:1 6 AM BOTTOM STOP ATTACHER Screening for blood disease ALBUMIN CREATININE RATIO, URINE Routine 01/11/2025 6:16 AM BOTTOM STOP ATTACHER Type 2 diabetes mellitus with hyperlipidemia (HCC) HEMOGLOBIN A1C Routine 01/11/2025 6:16 AM BOTTOM STOP ATTACHER Type 2 diabetes mellitus with hyperlipidemia (HCC) THYROID FUNCTION CASCADE Routine 01/11/2025 6:16 AM BOTTOM STOP ATTACHER Postoperative hypothyroidism LIPID PANEL Routine 01/11/2025 6:16 AM BOTTOM STOP ATTACHER Type 2 diabetes mellitus with hyperlipidemia (HCC) COMPREHENSIVE METABOLIC PANEL Routine 01/11/2025 6:16 AM BOTTOM STOP ATTACHER Type 2 diabetes mellitus with hyperlipidemia (HCC) CBC WITH AUTO DIFFERENTIAL Routine 01/11/2025 6:16 AM BOTTOM STOP ATTACHER Screening for blood disease XR CHEST PA LATERAL 2 VIEWS Schedule Routine, Read Routine (OP Routine) 12/24/2024 3:51 PM BOTTOM STOP ATTACHER Endometrial cancer (HCC) SCREENING MAMMOGRAM BILATERAL W ABIMBOLA Schedule Routine, Read Routine (OP Routine) 02/03/2024 3:47 PM BOTTOM STOP ATTACHER Visit for screening mammogram DIABETIC EYE EXAM Routine 07/08/2021 HEPATITIS C AB REFLEX RNA QUANT PCR Routine 12/16/2017 7:04 AM BOTTOM STOP ATTACHER COLONOSCOPY REPORT 08/23/2017 HM DEXA SCAN Routine 07/19/2017 from Last 3 Months or Most Recently Relevant to Health Maintenance Results * eGFR (01/11/2025 6:16 AM BOTTOM STOP ATTACHER) eGFR >90 >=60 mL/min/1. 73 m2 Comment: [...] last reviewed 2021. Blood 01/11/2025 6:16 AM BOTTOM STOP ATTACHER 01/11/2025 7:00 AM BOTTOM STOP ATTACHER us Earle Darby MD LAB BLOOD ORDERABLES Final R esult [facility] ([place]) 1 [facility] Department [place] [address] * (ABNORMAL) Differential, auto (01/11/2025 6:16 AM BOTTOM STOP ATTACHER) Neutrophil abs 6.0 1.5 - 6.5 K/cumm [...] revised on 2018. Blood 01/11/2025 6:16 AM BOTTOM STOP ATTACHER 01/11/2025 7:00 AM BOTTOM STOP ATTACHER us Earle Darby MD LAB BLOOD ORDERABLES Final R eselizabeth Performing Organization Address City/[facility]/ZIP Co de Phone Number [facility] ([place]) 1 [facility] Department [place] [address] * Thyroid Function [place] (01/11/2025 6:16 AM BOTTOM STOP ATTACHER) TSH 1.61 0.30 - 4.20 mcIUnit/mL Blood 01/11/2025 6:16 AM BOTTOM STOP ATTACHER 01/11/2025 7:00 AM BOTTOM STOP ATTACHER us Earle Darby MD LAB BLOOD ORDERABLES Final R esult [facility] ([place]) 1 [facility] Department [place] [address] * (ABNORMAL) CBC with auto differential (01/11/2025 6:16 AM BOTTOM STOP ATTACHER) [facility] WBC 10.2(H) 3.8 - 9.9 K/cumm Hgb 16.1(H) 11.9 - 15.5 g/dL [facility] Hct 50.0(H) 35.6 - 45.5 % [facility] ([place] Plt 201 150 - 400 K/cumm [facility] ([place]) MPV 8.8(L) 9.1 - 12.3 fL [facility] RBC 5.46(H) 3.90 - 5.20 M/cumm [facility] ([place] MCV 91.6 81.3 - 96.4 fL [facility] ([place] MCH 29.5 27.1 - 33.3 pg [facility] ([place] MCHC 32.2(L) 32.3 - 35.7 g/dL [facility] ([place] RDW CV 14.3 11.1 - 14.9 % [facility] RDW SD 47.8 35.7 - 48.1 fL [facility] NRBC abs 0.00 0.00 - 0.01 K/cumm [facility] ([place] Blood 01/11/2025 6:16 AM BOTTOM STOP ATTACHER 01/11/2025 7:00 AM BOTTOM STOP ATTACHER us Earle Darby MD LAB BLOOD ORDERABLES Final R esult [facility] ([place]) 1 [facility] Department [place] [address] * Albumin Creatinine Ratio, Urine (01/11/2025 6:16 AM BOTTOM STOP ATTACHER) [facility] Albumin Ur <12.0 mg/L Comment: Interpretive Data No reference range established. Current interpretive data was last revised 2019. Testing performed by: [facility], [address] [place] [address], [place]., [address] Creatinine Ur 147.2 mg/dL [facility] ([place]) Comment: Interpretive Data No reference range established. Current interpretive data was last revised 2019. Testing performed by: [facility], [address] [place] [address]., [id number] Albumin Creatinine Ratio, Ur <8 1 - 29 mg/g [facility] ([place]) Comment:Testing performed by : [facility], [address] [place] [address]., [id number] Urine 01/11/2025 6:16 AM BOTTOM STOP ATTACHER 01/11/2025 11:03 AM BOTTOM STOP ATTACHER Earle Darby MD LAB URINE ORDERABLES Final R esult Performing Organization Address City/[facility] Co de Phone Number [facility] ([place]) 1 [facility] [email or web address] [address] * (ABNORMAL) Hemoglobin A1c (01/11/2025 6:16 AM BOTTOM STOP ATTACHER) Hgb A1C 7.0(H) 4.0 - 5.6 % Estimated Average Glucose 154 mg/dL [facility] ([place]) Comment: The ADA recommends reporting an estimated Average Glucose (eAG) with all Hemoglobin A1c results using the equation derived from a study of 507 normal and diabetic adults. Minority populations were underrepresented and children were not included. (Diabetes Care 31:9012-5663, 2008). The eAG is not equivalent to a fasting glucose. Blood 01/11/2025 6:16 AM BOTTOM STOP ATTACHER 01/11/2025 7:00 AM BOTTOM STOP ATTACHER Earle Darby MD LAB BLOOD ORDERABLES Final R esult [facility] ([place]) 1 [facility] [email or web address] [address] * (ABNORMAL) Lipid panel (01/11/2025 6:16 AM BOTTOM STOP ATTACHER) Cholesterol 205(H) 30 - 199 mg/dL Comment: [...] [facility] ([place]) Blood 01/11/2025 6:16 AM BOTTOM STOP ATTACHER 01/11/2025 7:00 AM BOTTOM STOP ATTACHER Narrative [facility] ([place]) - 01/11/2025 7:50 AM BOTTOM STOP ATTACHER Has the patient been fasting for 8 hours or more?->Yes us Earle Darby MD LAB BLOOD ORDERABLES Final R esult [facility] ([place]) 1 [facility] Department of Laboratories [place], [place] [id number] * Comprehensive metabolic panel (01/11/2025 6:16 AM BOTTOM STOP ATTACHER) Sodium 141 135 - 145 mmol/L Potassium, [...] S pecimen Blood 01/11/2025 6:1 6 AM BOTTOM STOP ATTACHER 01/11/2025 7:00 AM BOTTOM STOP ATTACHER Narrative [facility] ([place]) - 01/11/2025 7:50 AM BOTTOM STOP ATTACHER Has the patient fasted?->Yes us Earle Darby MD LAB BLOOD ORDERABLES Final R esult [facility] ([place]) 1 [facility] Department [place] [address] * XR Chest Pa Lateral 2 Views (12/24/2024 3:51 PM BOTTOM STOP ATTACHER) Anatomical Region Laterality Modality Body, Chest N/A Computed Radiogr aphy 12/24/2024 4:56 PM BOTTOM STOP ATTACHER Impressions 12/24/2024 9:36 PM BOTTOM STOP ATTACHER Comparison is made to 08/07/2020. Sternotomy wires are intact and aligned. Lungs are clear with no consolidation. No pleural effusion or pneumothorax. Cardiomediastinal silhouette is unchanged. Dictated by: Michelet Barraza M.D. The radiology attending physician has personally reviewed this study, and had reviewed and/or edited this written report and agrees with it. Electronically signed by: Gonzalez Fitzgerald M.D. Narrative 12/24/2024 9:36 PM BOTTOM STOP ATTACHER EXAMINATION: 2 view chest radiograph Procedure Note [...] MAMMOGRAM BILATERAL W ABIMBOLA (02/03/2024 3:47 PM BOTTOM STOP ATTACHER) Anatomical Region Laterality Modality Breast Bilateral Mammography 02/03/2024 3:54 PM BOTTOM STOP ATTACHER Impressions 02/03/2024 3:54 PM BOTTOM STOP ATTACHER There is no mammographic evidence of malignancy. A 1 year screening mammogram is recommended. BI-RADS: 2 - Benign. The patient has been or will be contacted. The patient will be entered into a reminder system with a target due date of 1 year for her next mammogram. Electronically signed by: MAGDI WALKER Narrative 02/03/2024 3:54 PM BOTTOM STOP ATTACHER EXAMINATION: SCREENING MAMMOGRAM BILATERAL W ABIMBOLA ORDERING [...] esult * Diabetic Eye Exam (07/08/2021) Result [facility] Historical Provider HEALTH MAINTENANCE Final Result * Hepatitis C Antibody Reflex Hepatitis C RNA Quantitative PCR (12/16/2017 7:04 AM BOTTOM STOP ATTACHER) Hep C Ab Negative Negative [facility] Blood specimen (specimen) 12/16/2017 7:04 AM BOTTOM STOP ATTACHER 12/16/2017 2:34 PM BOTTOM STOP ATTACHER Narrative [facility] - 12/16/2017 3:41 PM BOTTOM STOP ATTACHER Result [facility] Earle Darby MD LAB MICROBIOLOGY - GENERAL O RDERABLES Final Result [facility] [id number] Department of Laboratories [place] [id number] * COLONOSCOPY REPORT (08/23/2017) Anatomical Region Laterality Modality Other Provider Scanning GI PROCEDURE ORDERABLES Final Result * HM DEXA SCAN (07/19/2017) HM DEXA Scan Normal Result [facility] Historical Provider HEALTH MAINTENANCE Final Result from Last 3 Months or Most Recently Relevant to Health Maintenance Insurance [facility] Address: [address] [address] [place] [id number] [facility]/PPO Address: [address] [address] [place] [address] [facility]/PPO Address: [address] [address] [place] [address] [facility]/PPO Address: [address] [address] [place] [address] Advance Directives For more information, please contact: [phone] * Full Code (Latest Code Status on File) Date Activated Date Inactivated Comments 05/09/2022 7:33 PM 05/10/2022 2:57 PM * Full Code Date Activated Date Inactivated Comments 01/08/2018 7:23 PM 01/11/2018 4:53 PM Care Teams Subassembler Relationship Specialty Start Date End Date Earle Darby MD [address] [facility] [address], [place] [address] PCP - General Internal Medicine 10/09/24 Fabian Matute MD [address] [facility] [address] [address] Consulting Physician Endocrinology 02/07/22 Rahat Jean Baptiste MD [address] [place] [address] Referring Physician Obstetrics and Gynecology 12/23/24
--- OUTSIDE RECORDS SUMMARY | 2025-03-07 12:15 | XMS_ITS | Encounter Summary ---
Author Organization [facility] Address [address] [place] [address] Phone Care Team Providers Care Ore Dryer Name Role Phone Álvaro Darby MD Primary Care Provider [phone] Fabian Matute MD Unavailable [phone] Álvaro Darby MD Primary Care Provider [phone] Rahat Jean Baptiste MD Unavailable [phone] Encounter Details Date Type Department Care Team (Late st Contact Info) Description 01/22/2018 Orders Only [facility] ProviderNorm MD [address] [place] [address] Social History Tobacco Use Types [...] on file Legal Sex Female 11:50 PM DIRECTOR TELEHEALTH Gender Identity Female 09/15/2021 10:22 AM CDT Sexual Orientation Lesbian 09/15/2021 10 :22 AM CDT documented as of this encounter Plan of Treatment Not on file documented as of this encounter Procedures Procedure Name Priority Date/Time Associated Diagnosis Comments DISCHARGE LABORATORY CUMULATIVE REPORT 01/22/2018 12:00 AM DIRECTOR TELEHEALTH documented in this encounter Results * DISCHARGE LABORATORY CUMULATIVE REPORT (01/22/2018 12:00 AM DIRECTOR TELEHEALTH) Narrative 01/22/2018 12:00 AM DIRECTOR TELEHEALTH Ordered by an unspecified provider. us Historical Provider LAB BLOOD ORDERABLES Digna l Result documented in this encounter Visit Diagnoses Not on filedocumented in this encounter Additional Health Concerns Infection Onset Date Last Indicated Resolved Time COVID: Suspected 11/02/2021 11/02/2021 11/02/2021 8:45 AM DIRECTOR TELEHEALTH COVID19 11/02/2021 11/02/2021 11/16/2021 3:05 AM DIRECTOR TELEHEALTH COVID: Recovered Comment:Added based on recent COVID infection. 11/16/2021 01/12/2022 03/16/2022 3:05 AM C DT COVID: Suspected 05/27/2024 05/27/2024 05/27/2024 3:48 PM CDT documented as of this encounter Care Teams Ore Dryer Relationship Specialty Start Date End Date Álvaro Darby MD PCP - General 03/01/17 10/08/24 Álvaro Darby MD [address] [facility] [address] [address] PCP - General Internal Medicine 10/09/24 Fabian Matute MD [address] [place] [address] [facility] [address] [place] [address] Consulting Physician Endocrinology 02/07/22 Rahat Jean Baptiste MD [address] [facility] [address] [place] [address] Referring Physician Obstetrics and Gynecology 12/23/24 documented as of this encounter
--- OUTSIDE RECORDS SUMMARY | 2025-03-07 12:15 | XMS_ITS | Encounter Summary ---
Author Organization [facility] Address [address] [place] [address] Care Team Providers Care Recycling Assistant Name Role Phone Fabian Matute MD Unavailable [phone] Álvaro Darby MD Primary Care Provider [phone] Rahat Jean Baptiste MD Unavailable [phone] Reason for Visit * Auth/Cert (Routine) Specialty Diagnoses / Procedures Referred By Contac t Referred To Contact Diagnoses Personal history of colonic polyps Encounter for screening colonoscopy Personal history of colonic polyps [Z86.010] Encounter for screening colonoscopy [Z12.11] Procedures [place] COLONOSCOPY FLX DX W/COLLJ SPEC WHEN PFRMD COLONOSCOPY Referral ID Status Reason Start Date Expiration Date Visits Re quested Visits Authorized [id number] 1 1 Encounter Details Date Type Department Care Team (Late st Contact Info) Description 10/09/2024 Hospital Encounter [facility] [address] [place] [address] Yash Bee MD [address] [place] [address] [place] [address] Social History Tobacco Use Types Packs/Day Years [...] on file Legal Sex Female 11:50 PM CLINICAL EDUCATOR Gender Identity Female 09/15/2021 10:22 AM CDT [...] colonoscopy documented in this encounter Care Teams Recycling Assistant Relationship Specialty Start Date End Date Álvaro Darby MD [address] [address] PCP - General Internal Medicine 10/09/24 Fabian Matute MD [address] [place] [address] [address] [place] [address] Consulting Physician Endocrinology 02/07/22 Rahat Jean Baptiste MD [address] [facility] [address] [place] [address] Referring Physician Obstetrics and Gynecology 12/23/24 documented as of this encounter
--- OUTSIDE RECORDS SUMMARY | 2025-03-07 12:15 | XMS_ITS | Encounter Summary ---
Author Organization [facility] [employer] [facility] Address [address] [place] [address] Phone Care Team Providers Care Family Literacy Coordinator Name Role Phone Álvaro Darby MD Primary Care Provider [phone] Fabian Matute MD Unavailable [phone] Álvaro Darby MD Primary Care Provider [phone] Rahat Jean Baptiste MD Unavailable [phone] Encounter Details Date Type Department Care Team (Late st Contact Info) Description 12/16/2017 Orders Only [facility] ProviderNorm MD [address] [place] [address] Social History Tobacco Use Types [...] on file Legal Sex Female 11:50 PM ZOOLOGY PROFESSOR Gender Identity Female 09/15/2021 10:22 AM CDT Sexual Orientation Lesbian 09/15/2021 10 :22 AM CDT documented as of this encounter Plan of Treatment Not on file documented as of this encounter Procedures Procedure Name Priority Date/Time Associated Diagnosis Comments DISCHARGE LABORATORY CUMULATIVE REPORT 12/16/2017 12:00 AM ZOOLOGY PROFESSOR documented in this encounter Results * DISCHARGE LABORATORY CUMULATIVE REPORT (12/16/2017 12:00 AM ZOOLOGY PROFESSOR) Narrative 12/16/2017 12:00 AM ZOOLOGY PROFESSOR Ordered by an unspecified provider. us Historical Provider LAB BLOOD ORDERABLES Digna l Result documented in this encounter Visit Diagnoses Not on filedocumented in this encounter Additional Health Concerns Infection Onset Date Last Indicated Resolved Time COVID: Suspected 11/02/2021 11/02/2021 11/02/2021 8:45 AM ZOOLOGY PROFESSOR COVID19 11/02/2021 11/02/2021 11/16/2021 3:05 AM ZOOLOGY PROFESSOR COVID: Recovered Comment:Added based on recent COVID infection. 11/16/2021 01/12/2022 03/16/2022 3:05 AM C DT COVID: Suspected 05/27/2024 05/27/2024 05/27/2024 3:48 PM CDT documented as of this encounter Care Teams Family Literacy Coordinator Relationship Specialty Start Date End Date Álvaro Darby MD PCP - General 03/01/17 10/08/24 Álvaro Darby MD [address] [facility] [address], [place] [address] PCP - General Internal Medicine 10/09/24 Fabian Matute MD [address] [place] [address] [facility] [address] [place] [address] Consulting Physician Endocrinology 02/07/22 Rahat Jean Baptiste MD [address] [facility] [address] [place] [address] Referring Physician Obstetrics and Gynecology 12/23/24 documented as of this encounter
--- OUTSIDE RECORDS SUMMARY | 2025-03-07 12:15 | XMS_ITS | Encounter Summary ---
Author Organization [facility] Address [address] [place] [address] Care Team Providers Care Yarn Sorter Name Role Phone Álvaro Darby MD Primary Care Provider [phone] Encounter Details Date Type Department Care Team (Late st Contact [facility]) Description 03/04/2025 Lab Requisition [facility] [address] [facility] [place] [id number] Raquel Negrete MD [address] [facility] [address] [place] [address] Social History Tobacco Use Types Packs/Day Years [...] on filedocumented in this encounter Care Teams Yarn Sorter Relationship Specialty Start Date End Date Álvaro Darby MD PCP - General Internal Medicine 03/07/17 documented as of this encounter
--- OUTSIDE RECORDS SUMMARY | 2025-03-07 12:15 | XMS_ITS | Clinical Summary ---
Author Organization [facility] Address [address] [place] [address] Care Team Providers Care Classroom Coordinator Name Role Phone Fabian Matute MD Unavailable [phone] Earle Darby MD Primary Care Provider [phone] Rahat Jean Baptiste MD Unavailable [phone] Allergies Active Allergy Reactions Criticality Noted Date [...] 1 tablet (150 mcg total) by mouth contaminated land consultant before breakfast 90 tablet 3 07/20/20 24 [...] 12/06/2022 Assessment & Plan (12/06/2022 9:11 AM HAT LINING BLOCKER): Repeat CBC in 6 months. Class 2 obesity with body ma ss index (BMI) of 35.0 to 35.9 in adult 12/06/2022 Assessment & Plan (12/06/2022 9:25 AM HAT LINING BLOCKER): Patient is encouraged to lose weight with a combination of caloric reduction and increased exercise. 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 Also refer to endocrinology for history of thyroidectomy for papillary microcarcinoma. Assessment & Plan (01/20/2024 2:35 PM HAT LINING BLOCKER): Continue current dose of levothyroxine check TSH [...] results. Assessment & Plan (10/08/2022 8:35 AM HAT LINING BLOCKER): Patient is clinically euthyroid TSH was 0.26 [...] (06/06/2022): Added automatically from request for surgery [id number] Papillary microcarcinoma of thyroid 06/05/2022 Overview (06/05/2022): S/p excision 05/2022 Assessment & Plan (11/01/2024 8:01 PM HAT LINING BLOCKER): MNG s/p total thyroidectomy on 05/09/22 Micro-papillary thyroid cancer Patient recently had a thyroid ultrasound, noted stable findings Assessment & Plan (04/08/2023 9:14 AM CDT): MNG s/p total thyroidectomy on 05/09/22 Micro-papillary thyroid cancer - we will monitor - she will have thyroid ultrasound next month with Dr. Hernandez. Assessment & Plan (10/08/2022 8:35 AM HAT LINING BLOCKER): MNG s/p total thyroidectomy on 05/09/22 Micro-papillary [...] (04/17/2022): Added automatically from request for surgery [id number] Chronic pain of left knee 12/05/2021 Overview [...] knee. Assessment & Plan (12/05/2021 9:17 AM HAT LINING BLOCKER): Probably loose body or meniscal tear based on history. Currently asymptomatic. Recommend orthopedic referral if worsens. Gastroesophageal reflux disease without esophagi tis 11/01/2020 Assessment & Plan (11/01/2020 5:12 PM HAT LINING BLOCKER): If becomes more frequent, would recommend Pepcid daily. Rotator cuff tendinitis, right 10/02/2019 Subacromial bursitis 10/02/2019 S/P thyroidectomy 08/27/2018 Overview (06/05/2022): Path with 2 papillary microacarcinomas Assessment & Plan (07/17/2023 12:02 PM CDT): Continue levothyroxine check TSH and free T4 before next visit and follow-up with endocrinology and her surgeon as they direct. Assessment & Plan (12/06/2022 9:11 AM HAT LINING BLOCKER): Follow-up with Dr. Matute as he directs. Assessment & Plan (06/05/2022 9:06 AM CDT): F/u with surgeon and Dr Matute as they direct. Assessment & Plan (12/05/2021 9:16 AM HAT LINING BLOCKER): Seems fairly asymptomatic and will check TSH and free T4 before next visit and refer to Endocrinology if necessary. Assessment & Plan (05/30/2021 5:24 PM CDT): Currently asymptomatic and will check TSH and free T4 before next visit. Assessment & Plan (11/01/2020 5:12 PM HAT LINING BLOCKER): Asymptomatic and thyroid levels are normal. Assessment & Plan (10/02/2019 2:50 PM CDT): Asymptomatic and thyroid levels normal. Assessment & Plan (01/29/2019 1:58 PM HAT LINING BLOCKER): Asymptomatic and will check thyroid labs again before next visit. Benign paroxysmal positional vertigo 06/02/2018 Assessment & Plan (12/06/2022 9:12 AM HAT LINING BLOCKER): Recommend meclizine as needed. Call back for vestibular therapy if needed. S/P CABG (coronary artery bypass graft) 01/27/20 18 Overview (01/27/2018): Three vessel January 2018. Urinary, incontinence, stress female 06/24/2017 Assessment & Plan (06/24/2017 4:36 PM CDT): Follow-up with Dr. Mtz as she directs. Vitamin D deficiency 04/17/2014 Overview (03/08/2017): Vitamin D deficiency Assessment & Plan (01/20/2024 2:35 PM HAT LINING BLOCKER): Continue current supplementation and check level in 1 year. Assessment & Plan (07/17/2023 12:00 PM CDT): Continue vitamin-D supplementation check level before next visit Assessment & Plan (12/06/2022 9:10 AM HAT LINING BLOCKER): Continue current supplementation and check level in 1 year. Assessment & Plan (12/05/2021 9:15 AM HAT LINING BLOCKER): Continue current supplementation and check level in 1 year. Assessment & Plan (05/30/2021 5:23 PM CDT): Continue current supplementation and check level before next visit. Assessment & Plan (11/01/2020 5:11 PM HAT LINING BLOCKER): Continue current supplementation and check level in [...] changes Assessment & Plan (01/20/2024 2:35 PM HAT LINING BLOCKER): Blood pressure well controlled on indapamide and lisinopril metoprolol Assessment & Plan (07/17/2023 12:00 PM CDT): Blood pressure well controlled on indapamide, lisinopril, metoprolol Assessment & Plan (01/25/2022 12:34 PM HAT LINING BLOCKER): Patient with history of CAD Condition under control with medication No tachycardia - continue Metoprolol per PCP Assessment & Plan (08/27/2018 10:28 PM CDT): Continue current medication regimen. Assessment & Plan (01/27/2018 5:14 PM HAT LINING BLOCKER): Well controlled on metoprolol. Assessment & Plan [...] intact. Assessment & Plan (01/20/2024 2:35 PM HAT LINING BLOCKER): A1c, LDL, and blood pressure currently well controlled on current regimen. Check a yearly diabetic eye exam and blood sugars daily. Monofilament testing is intact. Assessment & Plan (07/17/2023 12:00 PM CDT): A1c and blood pressure currently well controlled on current regimen. Check a yearly diabetic eye exam and blood sugars daily. Monofilament testing is intact. Assessment & Plan (12/06/2022 9:10 AM HAT LINING BLOCKER): A1c, LDL, and blood pressure currently well controlled on current regimen. Check a yearly diabetic eye exam and blood sugars daily. Monofilament testing is intact. Assessment & Plan (06/05/2022 9:09 AM CDT): A1c, LDL, and blood pressure currently well controlled on current regimen. Check a yearly diabetic eye exam and blood sugars daily. Monofilament testing is intact. Assessment & Plan (12/05/2021 9:15 AM HAT LINING BLOCKER): A1c, LDL, and blood pressure currently well controlled on current regimen. Check a yearly diabetic eye exam and blood sugars daily. Monofilament testing is intact. Assessment & Plan (05/30/2021 5:23 PM CDT): A1c, LDL, and blood pressure currently well controlled on current regimen. Check a yearly diabetic eye exam and blood sugars daily. Monofilament testing is intact. Assessment & Plan (11/01/2020 5:11 PM HAT LINING BLOCKER): A1c, LDL, and blood pressure currently well [...] exercise. Assessment & Plan (01/29/2019 1:57 PM HAT LINING BLOCKER): Patient should reduce sugar and carbs, increase [...] months. Assessment & Plan (01/20/2024 2:34 PM HAT LINING BLOCKER): Continue rosuvastatin Vascepa for now and consider [...] well. Assessment & Plan (12/06/2022 9:11 AM HAT LINING BLOCKER): Well controlled on current therapy and will check a lipid panel and LFTs in 6 months. Assessment & Plan (06/05/2022 9:09 AM CDT): Well controlled on current therapy and will check a lipid panel and LFTs in 6 months. Assessment & Plan (12/05/2021 9:15 AM HAT LINING BLOCKER): Well controlled on current therapy and will check a lipid panel and LFTs in 6 months. Assessment & Plan (05/30/2021 5:24 PM CDT): Well controlled on current therapy and will check a lipid panel and LFTs in 6 months. Assessment & Plan (11/01/2020 5:11 PM HAT LINING BLOCKER): Well controlled on current therapy and will [...] months. Assessment & Plan (01/29/2019 1:57 PM HAT LINING BLOCKER): Well controlled on current therapy and will check a lipid panel and LFTs in 6 months. Assessment & Plan (08/27/2018 10:28 PM CDT): Well controlled on current therapy and will check a lipid panel and LFTs in 6 months. Assessment & Plan (01/27/2018 5:14 PM HAT LINING BLOCKER): Continue Crestor and discussed PCSK9 inhibitor with her insurance claims processor. Assessment & Plan (06/24/2017 4:32 PM CDT): Well controlled on current therapy and will check a lipid panel and LFTs in twelve months. Atopic rhinitis 03/30/2013 Overview (03/08/2017): Allergic rhinitis Assessment & Plan (11/01/2020 5:11 PM HAT LINING BLOCKER): Continue Singular Assessment & Plan (08/27/2018 10:27 PM CDT): Continue Singulair. Assessment & Plan (06/24/2017 4:32 PM CDT): Well controlled on her Flonase and Xyzal. 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 Assessment & Plan (07/20/2024 2:27 PM CDT): Continue current medication regimen and follow up with the insurance claims processor as they direct. Assessment & Plan (01/20/2024 2:33 PM HAT LINING BLOCKER): Recommend diet exercise for LDL lowering and continuing her rosuvastatin for now and considering Zetia next visit if no improvement. Continue other medications and follow up with insurance claims processor as they direct. Assessment & Plan (07/17/2023 12:01 PM CDT): Continue current medication regimen and add Vascepa and follow-up with her insurance claims processor as they direct. Assessment & Plan (12/06/2022 9:11 AM HAT LINING BLOCKER): Continue current medication regimen follow up with insurance claims processor as they direct. Assessment & Plan (06/05/2022 9:09 AM CDT): Continue current medication regimen follow up with insurance claims processor as they direct. Assessment & Plan (12/05/2021 9:15 AM HAT LINING BLOCKER): Continue current medication regimen follow up with insurance claims processor as they direct. Assessment & Plan (05/30/2021 5:24 PM CDT): Continue aspirin, lisinopril, metoprolol, rosuvastatin and follow up with insurance claims processor as they direct Assessment & Plan (11/01/2020 5:12 PM HAT LINING BLOCKER): Aspirin, metoprolol, rosuvastatin follow-up with insurance claims processor as they direct. Assessment & Plan (04/29/2020 3:10 PM CDT): Continue current medication regimen and follow up with insurance claims processor as they direct. Assessment & Plan (10/02/2019 2:51 PM CDT): Continue lisinopril, metoprolol, rosuvastatin, aspirin follow up with insurance claims processor as they direct. Assessment & Plan (01/29/2019 1:58 PM HAT LINING BLOCKER): Current complaints seem atypical for cardiovascular disease. Continue monitoring blood pressure at home record and take her next Cardiology appointment in mid March. Assessment & Plan (08/27/2018 10:28 PM CDT): Continue rosuvastatin, metoprolol, lisinopril, aspirin follow up with insurance claims processor as they direct. Assessment & Plan (01/27/2018 5:13 PM HAT LINING BLOCKER): It appears that she has gone through successful coronary artery bypass grafting without difficulty. Continue current medication regimen follow up with insurance claims processor and cardiothoracic surgeon as they direct. Resolved Problems Problem Noted Date Diagnosed Date Resolved Date Encounter for screening colonoscopy 01/23/2024 11/04/2024 Hyperthyroidism 01/25/2022 06/07/2022 Assessment & Plan (01/25/2022 12:32 PM HAT LINING BLOCKER): Patient with history of sub-clinical hyperthyroidism since [...] 07/20/2024 Assessment & Plan (12/05/2021 9:17 AM HAT LINING BLOCKER): Probable viral respiratory tract infection. Supportive care [...] does not occur. Hypertensive heart disease w [facility] heart failure 10/28/2018 06/14/2021 Assessment & Plan (06/14/2021 2:13 PM CDT): Recommend DASH diet, heart-healthy lifestyle, exercise. Discussed the risks of hypertension. Assessment & Plan (05/30/2021 5:24 PM CDT): Well controlled on the current regimen. Avoidance of salt, proper body weight, and routine exercise recommended. Assessment & Plan (11/01/2020 5:12 PM HAT LINING BLOCKER): Well controlled on the current regimen. Avoidance [...] pressures. Assessment & Plan (01/29/2019 1:58 PM HAT LINING BLOCKER): Monitor blood pressures closely over the next 2 weeks and call back if no improvement. Will likely increase lisinopril to 20 mg daily at that point Assessment & Plan (10/28/2018 3:15 PM HAT LINING BLOCKER): Well controlled on the current regimen. Avoidance of salt, proper body weight, and routine exercise recommended. Acute chest pain 01/09/2018 01/27/2018 Healthcare maintenance 06/24/201711/04 Assessment & Plan (01/20/2024 2:33 PM HAT LINING BLOCKER): Flu shot each September. Tetanus booster every 10 years. Shingrix recommended. Prevnar 20 today. Pneumovax 23 completed. COVID booster up-to-date. Mammogram and colonoscopy ordered. See her back in 6 months with lab sooner if needed. Assessment & Plan (12/06/2022 9:24 AM HAT LINING BLOCKER): Flu shot updated today. Tetanus booster every 10 years. Shingrix recommended. COVID booster recommended. Mammogram yearly. Follow-up the aircraft armament mechanic as they direct. Colonoscopy due and patient will call to schedule. Will see her back in 6 months with lab sooner if needed. Assessment & Plan (12/05/2021 9:16 AM HAT LINING BLOCKER): High-dose flu shot today. Tetanus booster every 10 years. COVID vaccine completed. Shingrix recommended. Mammogram yearly. Colonoscopy ordered. Follow-up the aircraft armament mechanic for breast exam and pelvic exam as they direct. Will see her back in 6 months with lab sooner if needed. Assessment & Plan (11/01/2020 5:12 PM HAT LINING BLOCKER): Flu shot each September. Tetanus booster every 10 years. Shingrix recommended. Mammogram yearly. Follow-up the aircraft armament mechanic for breast exam and pelvic exam as [...] due August 2020. Mammogram yearly. Follow-up the aircraft armament mechanic as they direct. We will see her back in 6 months with lab sooner if needed. Assessment & Plan (06/24/2017 4:36 PM CDT): Flu shot each September. Tetanus booster due October 08, 2019 or sooner with injury. Zostavax recommended. Must have a colonoscopy especially given her chronic abdominal pain. Finally agreeable and ordered. Follow-up with her aircraft armament mechanic for breast exam, pelvic exam, and Pap smear as he directs. Mammogram yearly. Bone density scan suggested and patient wishes to proceed with her aircraft armament mechanic regarding this. Will see her back in [...] Description 03/02/2025 1:30 PM CDT Office Visit [facility] Primary Care at [facility] [address] [address] Earle Darby MD Healthcare maintenance (Primary Dx); Primary hypertension; Type 2 diabetes mellitus with hyperlipidemia (HCC); Hyperlipidemia, unspecified hyperlipidemia type; Coronary artery disease involving qagan tayagungin coronary artery of qagan tayagungin heart with angina pectoris; Postoperative hypothyroidism; Heart murmur 01/11/2025 6:10 AM HAT LINING BLOCKER Lab [address] [address] Screening for blood disease; Type 2 diabetes mellitus with hyperlipidemia (HCC); Postoperative hypothyroidism 12/24/2024 3:44 PM HAT LINING BLOCKER - 12/24/2024 11:59 PM HAT LINING BLOCKER Hospital Encounter [facility] ([facility] [address] [place] [id number] Endometrial cancer (HCC) Discharge Disposition: Discharge to home or self care 12/24/2024 3:00 PM HAT LINING BLOCKER Office Visit [facility] Obstetrics and Gynecology [address] [facility] 13th [place] [address] [place] [address] Lexy Wagner NP Post-operative state (Primary Dx); Endometrial cancer (HCC) 12/24/2024 Orders Only [facility] Medicine Gynecologic Oncology [facility] ([facility]) [address] [place] [address] Swetha Kurtz RN Endometrial cancer (HCC) (Primary Dx) 12/10/2024 9:30 AM HAT LINING BLOCKER Office Visit [facility] Cardiology [address] [facility] 8th [place] [address] [place] [address] Ronald Craig MD S/P CABG (coronary artery [...] on file Legal Sex Female 11:50 PM HAT LINING BLOCKER Gender Identity Female 09/15/2021 10:22 AM CDT [...] Diagnosis Comments EGFR Routine 01/11/2025 6:16 AM HAT LINING BLOCKER Type 2 diabetes mellitus with hyperlipidemia (HCC) DIFFERENTIAL AUTO Routine 01/11/2025 6:1 6 AM HAT LINING BLOCKER Screening for blood disease ALBUMIN CREATININE RATIO, URINE Routine 01/11/2025 6:16 AM HAT LINING BLOCKER Type 2 diabetes mellitus with hyperlipidemia (HCC) HEMOGLOBIN A1C Routine 01/11/2025 6:16 AM HAT LINING BLOCKER Type 2 diabetes mellitus with hyperlipidemia (HCC) THYROID FUNCTION CASCADE Routine 01/11/2025 6:16 AM HAT LINING BLOCKER Postoperative hypothyroidism LIPID PANEL Routine 01/11/2025 6:16 AM HAT LINING BLOCKER Type 2 diabetes mellitus with hyperlipidemia (HCC) COMPREHENSIVE METABOLIC PANEL Routine 01/11/2025 6:16 AM HAT LINING BLOCKER Type 2 diabetes mellitus with hyperlipidemia (HCC) CBC WITH AUTO DIFFERENTIAL Routine 01/11/2025 6:16 AM HAT LINING BLOCKER Screening for blood disease XR CHEST PA LATERAL 2 VIEWS Schedule Routine, Read Routine (OP Routine) 12/24/2024 3:51 PM HAT LINING BLOCKER Endometrial cancer (HCC) SCREENING MAMMOGRAM BILATERAL W ABIMBOLA Schedule Routine, Read Routine (OP Routine) 02/03/2024 3:47 PM HAT LINING BLOCKER Visit for screening mammogram DIABETIC EYE EXAM Routine 07/08/2021 HEPATITIS C AB REFLEX RNA QUANT PCR Routine 12/16/2017 7:04 AM HAT LINING BLOCKER COLONOSCOPY REPORT 08/23/2017 HM DEXA SCAN Routine 07/19/2017 from Last 3 Months or Most Recently Relevant to Health Maintenance Results * eGFR (01/11/2025 6:16 AM HAT LINING BLOCKER) eGFR >90 >=60 mL/min/1. 73 m2 Comment: [...] last reviewed 2021. Blood 01/11/2025 6:16 AM HAT LINING BLOCKER 01/11/2025 7:00 AM HAT LINING BLOCKER us Earle Darby MD LAB BLOOD ORDERABLES Final R esult [facility] ([place]) [address] [facility] Department [place] [address] * (ABNORMAL) Differential, auto (01/11/2025 6:16 AM HAT LINING BLOCKER) Neutrophil abs 6.0 1.5 - 6.5 K/cumm [...] revised on 2018. Blood 01/11/2025 6:16 AM HAT LINING BLOCKER 01/11/2025 7:00 AM HAT LINING BLOCKER us Earle Darby MD LAB BLOOD ORDERABLES Final R esult [facility] ([place]) [address] [facility] Department [place] [address] * Thyroid Function [place] (01/11/2025 6:16 AM HAT LINING BLOCKER) TSH 1.61 0.30 - 4.20 mcIUnit/mL Blood 01/11/2025 6:16 AM HAT LINING BLOCKER 01/11/2025 7:00 AM HAT LINING BLOCKER Earle Darby MD LAB BLOOD ORDERABLES Final R esult [facility] ([place]) [address] [facility] [place] [address] * (ABNORMAL) CBC with auto differential (01/11/2025 6:16 AM HAT LINING BLOCKER) Pathologist [facility] WBC 10.2(H) 3.8 - 9.9 K/cumm Hgb [...] [facility] ([place]) Blood 01/11/2025 6:16 AM HAT LINING BLOCKER 01/11/2025 7:00 AM HAT LINING BLOCKER Earle Darby MD LAB BLOOD ORDERABLES Final R esult [facility] ([place]) [address] [facility] [place] [address] * Albumin Creatinine Ratio, Urine (01/11/2025 6:16 AM HAT LINING BLOCKER) Pathologist [facility] Albumin Ur <12.0 mg/L Comment: Interpretive Data No reference range established. Current interpretive data was last revised 2019. Testing performed by: [facility], [address] [place] [address]., [id number] Creatinine Ur 147.2 mg/dL [facility] ([place]) Comment: Interpretive Data No reference range established. Current interpretive data was last revised 2019. Testing performed by: [facility], [address] [place] [address]., [id number] Albumin Creatinine Ratio, Ur <8 1 - 29 mg/g [facility] ([place]) Comment:Testing performed by : [facility], [address] [place] [address]., [id number] Urine 01/11/2025 6:16 AM HAT LINING BLOCKER 01/11/2025 11:03 AM HAT LINING BLOCKER Earle Darby MD LAB URINE ORDERABLES Final R esult Performing Organization Address City/State/[facility] Co de Phone Number [facility] ([place]) [address] [place] [address] * (ABNORMAL) Hemoglobin A1c (01/11/2025 6:16 AM HAT LINING BLOCKER) Pathologist [facility] Hgb A1C 7.0(H) 4.0 - 5.6 % Estimated Average Glucose 154 mg/dL [facility] ([place]) Comment: The ADA recommends reporting an estimated Average Glucose (eAG) with all Hemoglobin A1c results using the equation derived from a study of 507 normal and diabetic adults. Minority populations were underrepresented and children were not included. (Diabetes Care 31:4334-3040, 2008). The eAG is not equivalent to a fasting glucose. Blood 01/11/2025 6:16 AM HAT LINING BLOCKER 01/11/2025 7:00 AM HAT LINING BLOCKER us Earle Darby MD LAB BLOOD ORDERABLES Final R esult [facility] ([place]) [address] [facility] Department [place] [address] * (ABNORMAL) Lipid panel (01/11/2025 6:16 AM HAT LINING BLOCKER) Cholesterol 205(H) 30 - 199 mg/dL Comment: [...] [facility] ([place]) Blood 01/11/2025 6:16 AM HAT LINING BLOCKER 01/11/2025 7:00 AM HAT LINING BLOCKER Narrative [facility] ([place]) - 01/11/2025 7:50 AM HAT LINING BLOCKER Has the patient been fasting for 8 hours or more?->Yes us Earle Darby MD LAB BLOOD ORDERABLES Final R esult [facility] ([place]) [address] [facility] Department [place] [address] * Comprehensive metabolic panel (01/11/2025 6:16 AM HAT LINING BLOCKER) Sodium 141 135 - 145 mmol/L Potassium, [...] Hemolyzed S pecimen Blood 01/11/2025 6:16 AM HAT LINING BLOCKER 01/11/2025 7:00 AM HAT LINING BLOCKER Narrative [facility] ([place]) - 01/11/2025 7:50 AM HAT LINING BLOCKER Has the patient fasted?->Yes us Earle Darby MD LAB BLOOD ORDERABLES Final R esult [facility] ([place]) [address] [facility] Department [place] [address] * XR Chest Pa Lateral 2 Views (12/24/2024 3:51 PM HAT LINING BLOCKER) Anatomical Region Laterality Modality Body, Chest N/A Computed Radiogr aphy 12/24/2024 4:56 PM HAT LINING BLOCKER Impressions 12/24/2024 9:36 PM HAT LINING BLOCKER Comparison is made to 08/07/2020. Sternotomy wires are intact and aligned. Lungs are clear with no consolidation. No pleural effusion or pneumothorax. Cardiomediastinal silhouette is unchanged. Dictated by: Michelet Barraza M.D. The radiology attending physician has personally reviewed this study, and had reviewed and/or edited this written report and agrees with it. Electronically signed by: Gonzalez Fitzgerald M.D. Narrative 12/24/2024 9:36 PM HAT LINING BLOCKER EXAMINATION: 2 view chest radiograph Procedure Note [...] MAMMOGRAM BILATERAL W ABIMBOLA (02/03/2024 3:47 PM HAT LINING BLOCKER) Anatomical Region Laterality Modality Breast Bilateral Mammography 02/03/2024 3:54 PM HAT LINING BLOCKER Impressions 02/03/2024 3:54 PM HAT LINING BLOCKER There is no mammographic evidence of malignancy. A 1 year screening mammogram is recommended. BI-RADS: 2 - Benign. The patient has been or will be contacted. The patient will be entered into a reminder system with a target due date of 1 year for her next mammogram. Electronically signed by: MAGDI WALKER Narrative 02/03/2024 3:54 PM HAT LINING BLOCKER EXAMINATION: SCREENING MAMMOGRAM BILATERAL W ABIMBOLA ORDERING [...] C RNA Quantitative PCR (12/16/2017 7:04 AM HAT LINING BLOCKER) Hep C Ab Negative Negative [facility] Blood specimen (specimen) 12/16/2017 7:04 AM HAT LINING BLOCKER 12/16/2017 2:34 PM HAT LINING BLOCKER Narrative [facility] - 12/16/2017 3:41 PM HAT LINING BLOCKER Earle Darby MD LAB MICROBIOLOGY - GENERAL O RDERABLES Final Result [facility] [id number] [address] Department of [place] [address] * COLONOSCOPY REPORT (08/23/2017) Anatomical Region Laterality Modality Other Provider Scanning GI PROCEDURE ORDERABLES Final Result * HM DEXA SCAN (07/19/2017) DEXA Scan Normal us Historical Provider HEALTH MAINTENANCE Final Result from Last 3 Months or Most Recently Relevant to Health Maintenance Insurance [facility] Address: [address] [address] [place] [address] MEDICARE [facility] Address: [address] [address] [facility] H[facility]/PPO Address: [facility] [address] [place] [address] MEDICARE MEDICARE [facility]/PPO Address: [address] [address] [place] [address] Advance Directives For more information, please contact: [phone] * Full Code (Latest Code Status on File) Date Activated Date Inactivated Comments 05/09/2022 7:33 PM 05/10/2022 2:57 PM * Full Code Date Activated Date Inactivated Comments 01/08/2018 7:23 PM 01/11/2018 4:53 PM Care Teams Classroom Coordinator Relationship Specialty Start Date End Date Earle Darby MD [address] [facility] [address], [place] [address] PCP - General Internal Medicine 10/09/24 Fabian Matute MD [address] [place] [address] [address] [place] [address] Consulting Physician Endocrinology 02/07/22 Rahat Jean Baptiste MD [address] [facility] [address] [place] [address] Referring Physician Obstetrics and Gynecology 12/23/24
--- OUTSIDE RECORDS SUMMARY | 2025-03-07 12:15 | XMS_ITS ---
Author Organization [facility] Address [address] [place] [address] Care Team Providers Care Job Honer Name Role Phone Fabian Matute MD Unavailable [phone] Álvaro Darby MD Primary Care Provider [phone] Rahat Jean Baptiste MD Unavailable Active Problems Problem Noted Date Diagnosed Date Heart murmur 03/02/2025 Endometrial cancer 11/02/2024 Cancer Staging:Pathologic stage from 11/16/2024:FIGO Stage IA(pT1a, pN0(sn), cM0) - Signed by Elena Monreal MD on 11/26/2024 Polycythemia 12/06/2022 Assessment & Plan (12/06/2022 9:11 AM PASTORAL MINISTRIES PROFESSOR): Repeat CBC in 6 months. Class 2 obesity with body ma ss index (BMI) of 35.0 to 35.9 in adult 12/06/2022 Assessment & Plan (12/06/2022 9:25 AM PASTORAL MINISTRIES PROFESSOR): Patient is encouraged to lose weight with a combination of caloric reduction and increased exercise. Bilateral high frequency sensorineural hearing l oss 06/15/2022 Tinnitus of left ear 06/15/2022 Postoperative hypothyroidism 06/07/2022 Assessment & Plan (11/01/2024 8:00 PM PASTORAL MINISTRIES PROFESSOR): Chronic stable Recommend to continue current dose of levothyroxine Recheck thyroid function test every 6 months Assessment & Plan (07/20/2024 2:27 PM CDT): Continue current dose of levothyroxine check TSH before next visit adjust dose based on results. Also refer to endocrinology for history of thyroidectomy for papillary microcarcinoma. Assessment & Plan (01/20/2024 2:35 PM PASTORAL MINISTRIES PROFESSOR): Continue current dose of levothyroxine check TSH [...] results. 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 Hernandez. Assessment & Plan (10/08/2022 8:35 AM PASTORAL MINISTRIES PROFESSOR): MNG s/p total thyroidectomy on 05/09/22 Micro-papillary [...] (04/17/2022): Added automatically from request for surgery [id number] Chronic pain of left knee 12/05/2021 Overview [...] knee. Assessment & Plan (12/05/2021 9:17 AM PASTORAL MINISTRIES PROFESSOR): Probably loose body or meniscal tear based on history. Currently asymptomatic. Recommend orthopedic referral if worsens. Gastroesophageal reflux disease without esophagi tis 11/01/2020 Assessment & Plan (11/01/2020 5:12 PM PASTORAL MINISTRIES PROFESSOR): If becomes more frequent, would recommend Pepcid daily. Rotator cuff tendinitis, right 10/02/2019 Subacromial bursitis 10/02/2019 S/P thyroidectomy 08/27/2018 Overview (06/05/2022): Path with 2 papillary microacarcinomas Assessment & Plan (07/17/2023 12:02 PM CDT): Continue levothyroxine check TSH and free T4 before next visit and follow-up with endocrinology and her surgeon as they direct. Assessment & Plan (12/06/2022 9:11 AM PASTORAL MINISTRIES PROFESSOR): Follow-up with Dr. Matute as he directs. Assessment & Plan (06/05/2022 9:06 AM CDT): F/u with surgeon and Dr Matute as they direct. Assessment & Plan (12/05/2021 9:16 AM PASTORAL MINISTRIES PROFESSOR): Seems fairly asymptomatic and will check TSH and free T4 before next visit and refer to Endocrinology if necessary. Assessment & Plan (05/30/2021 5:24 PM CDT): Currently asymptomatic and will check TSH and free T4 before next visit. Assessment & Plan (11/01/2020 5:12 PM PASTORAL MINISTRIES PROFESSOR): Asymptomatic and thyroid levels are normal. Assessment & Plan (10/02/2019 2:50 PM CDT): Asymptomatic and thyroid levels normal. Assessment & Plan (01/29/2019 1:58 PM PASTORAL MINISTRIES PROFESSOR): Asymptomatic and will check thyroid labs again before next visit. Benign paroxysmal positional vertigo 06/02/2018 Assessment & Plan (12/06/2022 9:12 AM PASTORAL MINISTRIES PROFESSOR): Recommend meclizine as needed. Call back for vestibular therapy if needed. S/P CABG (coronary artery bypass graft) 01/27/20 18 Overview (01/27/2018): Three vessel January 2018. Urinary, incontinence, stress female 06/24/2017 Assessment & Plan (06/24/2017 4:36 PM CDT): Follow-up with Dr. Mtz as she directs. Vitamin D deficiency 04/17/2014 Overview (03/08/2017): Vitamin D deficiency Assessment & Plan (01/20/2024 2:35 PM PASTORAL MINISTRIES PROFESSOR): Continue current supplementation and check level in 1 year. Assessment & Plan (07/17/2023 12:00 PM CDT): Continue vitamin-D supplementation check level before next visit Assessment & Plan (12/06/2022 9:10 AM PASTORAL MINISTRIES PROFESSOR): Continue current supplementation and check level in 1 year. Assessment & Plan (12/05/2021 9:15 AM PASTORAL MINISTRIES PROFESSOR): Continue current supplementation and check level in 1 year. Assessment & Plan (05/30/2021 5:23 PM CDT): Continue current supplementation and check level before next visit. Assessment & Plan (11/01/2020 5:11 PM PASTORAL MINISTRIES PROFESSOR): Continue current supplementation and check level in [...] changes Assessment & Plan (01/20/2024 2:35 PM PASTORAL MINISTRIES PROFESSOR): Blood pressure well controlled on indapamide and lisinopril metoprolol Assessment & Plan (07/17/2023 12:00 PM CDT): Blood pressure well controlled on indapamide, lisinopril, metoprolol Assessment & Plan (01/25/2022 12:34 PM PASTORAL MINISTRIES PROFESSOR): Patient with history of CAD Condition under control with medication No tachycardia - continue Metoprolol per PCP Assessment & Plan (08/27/2018 10:28 PM CDT): Continue current medication regimen. Assessment & Plan (01/27/2018 5:14 PM PASTORAL MINISTRIES PROFESSOR): Well controlled on metoprolol. Assessment & Plan [...] intact. Assessment & Plan (01/20/2024 2:35 PM PASTORAL MINISTRIES PROFESSOR): A1c, LDL, and blood pressure currently well controlled on current regimen. Check a yearly diabetic eye exam and blood sugars daily. Monofilament testing is intact. Assessment & Plan (07/17/2023 12:00 PM CDT): A1c and blood pressure currently well controlled on current regimen. Check a yearly diabetic eye exam and blood sugars daily. Monofilament testing is intact. Assessment & Plan (12/06/2022 9:10 AM PASTORAL MINISTRIES PROFESSOR): A1c, LDL, and blood pressure currently well controlled on current regimen. Check a yearly diabetic eye exam and blood sugars daily. Monofilament testing is intact. Assessment & Plan (06/05/2022 9:09 AM CDT): A1c, LDL, and blood pressure currently well controlled on current regimen. Check a yearly diabetic eye exam and blood sugars daily. Monofilament testing is intact. Assessment & Plan (12/05/2021 9:15 AM PASTORAL MINISTRIES PROFESSOR): A1c, LDL, and blood pressure currently well controlled on current regimen. Check a yearly diabetic eye exam and blood sugars daily. Monofilament testing is intact. Assessment & Plan (05/30/2021 5:23 PM CDT): A1c, LDL, and blood pressure currently well controlled on current regimen. Check a yearly diabetic eye exam and blood sugars daily. Monofilament testing is intact. Assessment & Plan (11/01/2020 5:11 PM PASTORAL MINISTRIES PROFESSOR): A1c, LDL, and blood pressure currently well [...] exercise. Assessment & Plan (01/29/2019 1:57 PM PASTORAL MINISTRIES PROFESSOR): Patient should reduce sugar and carbs, increase [...] months. Assessment & Plan (01/20/2024 2:34 PM PASTORAL MINISTRIES PROFESSOR): Continue rosuvastatin Vascepa for now and consider [...] well. Assessment & Plan (12/06/2022 9:11 AM PASTORAL MINISTRIES PROFESSOR): Well controlled on current therapy and will check a lipid panel and LFTs in 6 months. Assessment & Plan (06/05/2022 9:09 AM CDT): Well controlled on current therapy and will check a lipid panel and LFTs in 6 months. Assessment & Plan (12/05/2021 9:15 AM PASTORAL MINISTRIES PROFESSOR): Well controlled on current therapy and will check a lipid panel and LFTs in 6 months. Assessment & Plan (05/30/2021 5:24 PM CDT): Well controlled on current therapy and will check a lipid panel and LFTs in 6 months. Assessment & Plan (11/01/2020 5:11 PM PASTORAL MINISTRIES PROFESSOR): Well controlled on current therapy and will [...] months. Assessment & Plan (01/29/2019 1:57 PM PASTORAL MINISTRIES PROFESSOR): Well controlled on current therapy and will check a lipid panel and LFTs in 6 months. Assessment & Plan (08/27/2018 10:28 PM CDT): Well controlled on current therapy and will check a lipid panel and LFTs in 6 months. Assessment & Plan (01/27/2018 5:14 PM PASTORAL MINISTRIES PROFESSOR): Continue Crestor and discussed PCSK9 inhibitor with her french instructor. Assessment & Plan (06/24/2017 4:32 PM CDT): Well controlled on current therapy and will check a lipid panel and LFTs in twelve months. Atopic rhinitis 03/30/2013 Overview (03/08/2017): Allergic rhinitis Assessment & Plan (11/01/2020 5:11 PM PASTORAL MINISTRIES PROFESSOR): Continue Singular Assessment & Plan (08/27/2018 10:27 PM CDT): Continue Singulair. Assessment & Plan (06/24/2017 4:32 PM CDT): Well controlled on her Flonase and Xyzal. 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 Assessment & Plan (07/20/2024 2:27 PM CDT): Continue current medication regimen and follow up with the french instructor as they direct. Assessment & Plan (01/20/2024 2:33 PM PASTORAL MINISTRIES PROFESSOR): Recommend diet exercise for LDL lowering and continuing her rosuvastatin for now and considering Zetia next visit if no improvement. Continue other medications and follow up with french instructor as they direct. Assessment & Plan (07/17/2023 12:01 PM CDT): Continue current medication regimen and add Vascepa and follow-up with her french instructor as they direct. Assessment & Plan (12/06/2022 9:11 AM PASTORAL MINISTRIES PROFESSOR): Continue current medication regimen follow up with french instructor as they direct. Assessment & Plan (06/05/2022 9:09 AM CDT): Continue current medication regimen follow up with french instructor as they direct. Assessment & Plan (12/05/2021 9:15 AM PASTORAL MINISTRIES PROFESSOR): Continue current medication regimen follow up with french instructor as they direct. Assessment & Plan (05/30/2021 5:24 PM CDT): Continue aspirin, lisinopril, metoprolol, rosuvastatin and follow up with french instructor as they direct Assessment & Plan (11/01/2020 5:12 PM PASTORAL MINISTRIES PROFESSOR): Aspirin, metoprolol, rosuvastatin follow-up with french instructor as they direct. Assessment & Plan (04/29/2020 3:10 PM CDT): Continue current medication regimen and follow up with french instructor as they direct. Assessment & Plan (10/02/2019 2:51 PM CDT): Continue lisinopril, metoprolol, rosuvastatin, aspirin follow up with french instructor as they direct. Assessment & Plan (01/29/2019 1:58 PM PASTORAL MINISTRIES PROFESSOR): Current complaints seem atypical for cardiovascular disease. Continue monitoring blood pressure at home record and take her next Cardiology appointment in mid March. Assessment & Plan (08/27/2018 10:28 PM CDT): Continue rosuvastatin, metoprolol, lisinopril, aspirin follow up with french instructor as they direct. Assessment & Plan (01/27/2018 5:13 PM PASTORAL MINISTRIES PROFESSOR): It appears that she has gone through successful coronary artery bypass grafting without difficulty. Continue current medication regimen follow up with french instructor and cardiothoracic surgeon as they direct. Current [...] 06/07/2022 Assessment & Plan (01/25/2022 12:32 PM PASTORAL MINISTRIES PROFESSOR): Patient with history of sub-clinical hyperthyroidism since [...] 07/20/2024 Assessment & Plan (12/05/2021 9:17 AM PASTORAL MINISTRIES PROFESSOR): Probable viral respiratory tract infection. Supportive care [...] does not occur. Hypertensive heart disease w [facility] heart failure 10/28/2018 06/14/2021 Assessment & Plan (06/14/2021 2:13 PM CDT): Recommend DASH diet, heart-healthy lifestyle, exercise. Discussed the risks of hypertension. Assessment & Plan (05/30/2021 5:24 PM CDT): Well controlled on the current regimen. Avoidance of salt, proper body weight, and routine exercise recommended. Assessment & Plan (11/01/2020 5:12 PM PASTORAL MINISTRIES PROFESSOR): Well controlled on the current regimen. Avoidance [...] pressures. Assessment & Plan (01/29/2019 1:58 PM PASTORAL MINISTRIES PROFESSOR): Monitor blood pressures closely over the next 2 weeks and call back if no improvement. Will likely increase lisinopril to 20 mg daily at that point Assessment & Plan (10/28/2018 3:15 PM PASTORAL MINISTRIES PROFESSOR): Well controlled on the current regimen. Avoidance of salt, proper body weight, and routine exercise recommended. Acute chest pain 01/09/2018 01/27/2018 Healthcare maintenance 06/24/201711/04 Assessment & Plan (01/20/2024 2:33 PM PASTORAL MINISTRIES PROFESSOR): Flu shot each September. Tetanus booster every 10 years. Shingrix recommended. Prevnar 20 today. Pneumovax 23 completed. COVID booster up-to-date. Mammogram and colonoscopy ordered. See her back in 6 months with lab sooner if needed. Assessment & Plan (12/06/2022 9:24 AM PASTORAL MINISTRIES PROFESSOR): Flu shot updated today. Tetanus booster every 10 years. Shingrix recommended. COVID booster recommended. Mammogram yearly. Follow-up the peat shredder tender as they direct. Colonoscopy due and patient will call to schedule. Will see her back in 6 months with lab sooner if needed. Assessment & Plan (12/05/2021 9:16 AM PASTORAL MINISTRIES PROFESSOR): High-dose flu shot today. Tetanus booster every 10 years. COVID vaccine completed. Shingrix recommended. Mammogram yearly. Colonoscopy ordered. Follow-up the peat shredder tender for breast exam and pelvic exam as they direct. Will see her back in 6 months with lab sooner if needed. Assessment & Plan (11/01/2020 5:12 PM PASTORAL MINISTRIES PROFESSOR): Flu shot each September. Tetanus booster every 10 years. Shingrix recommended. Mammogram yearly. Follow-up the peat shredder tender for breast exam and pelvic exam as [...] due August 2020. Mammogram yearly. Follow-up the peat shredder tender as they direct. We will see her back in 6 months with lab sooner if needed. Assessment & Plan (06/24/2017 4:36 PM CDT): Flu shot each September. Tetanus booster due October 08, 2019 or sooner with injury. Zostavax recommended. Must have a colonoscopy especially given her chronic abdominal pain. Finally agreeable and ordered. Follow-up with her peat shredder tender for breast exam, pelvic exam, and Pap smear as he directs. Mammogram yearly. Bone density scan suggested and patient wishes to proceed with her peat shredder tender regarding this. Will see her back in [...]
--- OUTSIDE RECORDS SUMMARY | 2025-03-07 12:15 | XMS_ITS | Encounter Summary ---
Author Organization [facility] Address [address] [place] [address] Care Team Providers Care Leather Stretcher Name Role Phone Álvaro Darby MD Primary Care Provider [phone] Encounter Details Date Type Department Care Team (Late st Contact Info) Description 03/03/2024 Lab Requisition [facility] - DermPath Lab [address] [facility], [place] [address] Danielle Wheat MD [address] [place] [address] Social History Tobacco Use Types Packs/Day Years [...] PM CDT) Case Report Dermatopathology Report Case: [id number] Authorizing Provider: Danielle Wheat MD Collected: 03/03/2024 02:33 PM Ordering Location: [facility] - Received: 03/04/2024 12:21 PM DermPath Lab Pathologist: Catrachita Hall MD Specimen: Skin, left confucianist 1:29 PM CDT DERMATOPATHOLOGY LABORATORY Final Diagnosis Specimen A. SKIN, left confucianist: SQUAMOUS CELL CARCINOMA, MODERATELY DIFFERENTIATED (C44.329) 1:29 PM CDT DERMATOPATHOLOGY LABORATORY Clinical History R/O NMSC, Growing, Irritated 1:29 PM CDT DERMATOPATHOLOGY LABORATORY Gross Description Specimen A: Received is one formalin filled container labeled with the patient's name and designated left confucianist. The specimen consists of a shave biopsy measuring 7x6x2 mm. Jar 0. 1:29 PM CDT DERMATOPATHOLOGY LABORATORY Microscopic Description Specimen A. SKIN, left confucianist: There are nests of squamous epithelial cells [...] characteristic determined by the Dermatopathology Laboratory at [facility], directed by Dr. Delma Brewster. These tests need not be, and therefore are not, approved by the [place] Food and Drug Administration. The tests are used for clinical purposes. Billing Codes Specimen Charges Stain Charges 68194 1 1:29 PM CDT DERMATOPATHOLOGY LABORATORY Embedded Images 1:29 PM CDT DERMATOPATHOLOGY LABORATORY Pathology/Cytolo gy TISSUE SPECIMEN FROM SKIN / Unknown 03/03/2024 2:33 PM CDT 03/04/2024 12:21 PM CDT Danielle Wheat MD LAB - PATHOLOGY/CYT OLOGY ORDERABLES DERMATOPATHOLOGY LABORATORY [facility] - Department of Dermatology [address], [address] [phone] documented in this encounter Visit Diagnoses Not on filedocumented in this encounter Care Teams Leather Stretcher Relationship Specialty Start Date End Date Álvaro Darby MD PCP - General Internal Medicine 03/07/17 documented as of this encounter
--- OUTSIDE RECORDS SUMMARY | 2025-03-07 12:15 | XMS_ITS | Clinical Summary ---
Author Organization [facility] [employer] Address [address] [facility] [place] [address] Care Team Providers Care Supervisor Fish Processing Name Role Phone Álvaro Darby MD Primary Care Provider [phone] Source Comments [facility] [employer],non-owned Affiliates and Associated Physician Practices is amultiple site organization consisting of ambulatory clinics and hospital sitesin [place], [place], [place] and [place]. This disclosure is being madepursuant to the Care Everywhere program and may not contain all information available regarding this patient. Last updated 18.[facility] [employer] Allergies No known active allergies Medications * [...] Department Care Team Description 03/04/2025 Lab Requisition [facility] - DermPath Lab [address] [place] [id number] Raquel Negrete MD from Last 3 Months [...] age to complete this topic Care Teams Supervisor Fish Processing Relationship Specialty Start Date End Date Álvaro Darby MD PCP - General Internal Medicine 03/07/17
[2025-03-07 12:18] LABS: INR 0.9; Prothrombin Time 12.9 Seconds (11.1-14.7)
[2025-03-07 12:19] LABS: Partial Thromboplastin Time 29.1 Seconds (22.3-36.8)
[2025-03-07 12:32] LABS: Alanine Aminotransferase 23 U/L (6-35); Albumin Level 4.3 g/dL (3.5-5.1); Alkaline Phosphatase 68 U/L (38-126); Anion Gap 11 mmol/L (4-12); Aspartate Amino Transferase 23 U/L (14-36); Bilirubin,Total 0.6 mg/dL (0.2-1.3); Blood Urea Nitrogen 19 mg/dL (7-17); Calcium 9.1 mg/dL (8.4-10.2); Carbon Dioxide 28 mmol/L (22-30); Chloride 101 mmol/L (98-107); Estimated CRCL calculation 75 ml/min; Estimated Glomerular Filt Rate > 60; Glucose 190 mg/dL (65-110); Lipase 33 U/L (23-300); Potassium 4.3 mmol/L (3.4-5.0); Sodium 140 mmol/L (137-145)
[2025-03-07 12:42] LABS: Troponin I < 0.012 ng/mL (0.000-0.034)
[2025-03-07] MEDS: ASPIRIN 81 MG CHEWABLE TABLET 324 MG PO (13:14)
--- NOTE | 2025-03-07 13:21 | PC.NURSE ---
pt takes daily 81mg Aspirin, so this RN provides 243mg additional to equate to 324mg order.
--- NOTE | 2025-03-07 14:51 | ECG_ITS ---
Test Date: 2025-03-07 14:54:59 Measurements Intervals Debary Rate: 58 P: 59 KS: 205 QRS: 6 QRSD: 138 T: 61 QT: 458 QTc: 454 Interpretive Statements SINUS BRADYCARDIA BORDERLINE AV CONDUCTION DELAY RIGHT BUNDLE BRANCH BLOCK BASELINE ARTIFACT- I, II, AVR, AVL, AVF, V1-V6 ABNORMAL ECG Compared to ECG 03/07/2025 10:55:11 HEART RATE HAS DECREASED Electronically Signed On 03-07-2025 16:52:12 CDT by Moses Myers D.O.
[2025-03-07 15:22] LABS: Troponin I < 0.012 ng/mL (0.000-0.034)
--- NOTE | 2025-03-07 15:58 | ED_ITS ---
HPI - Chest Pain General Chief Complaint: Chest Pain Stated Complaint: chest pain Time Seen by Provider: 03/07/25 11:59 Source: patient Mode of arrival: ambulatory Limitations: no limitations History of Present Illness HPI narrative: 70-year-old with a history of CAD status post CABG here with the complaints of intermittent chest tightness for last 1 week. Patient states that she saw her primary doctor who heard a murmur on auscultation and is scheduled for echocardiogram and she has been stressed out since then. She presently denies any shortness of breath. No history of nausea vomiting. Denies any fever chills. She follows with Dr. Craig at [facility] , saw him in Dec 2024 ,and was told everything was normal MD complaint: chest discomfort Pertinent past history: coronary artery disease Onset (ago): week(s) (1) Timing of current episode: episodic Pain location: left chest Pain radiation: none Severity: moderate Quality: tightness Relieving factors: nothing Exacerbating factors: nothing Risk Factors Coronary artery disease risk factors: diabetes Related Data Home Medications ?Medication ?Instructions ?Recorded ?Confirmed ?Last Taken ?Type aspirin 325 mg tablet 325 mg PO DAILY 10/02/24 10/07/24 Unknown History cholecalciferol (vitamin D3) 50 See Rx Instructions .Route .COMPLEX 10/02/24 10/08/24 10/05/24 History mcg (2,000 unit) capsule icosapent ethyl 1 gram capsule 2 g PO BID 10/02/24 10/07/24 Unknown History (Vascepa) levothyroxine 150 mcg tablet 150 mcg PO DAILY 10/02/24 10/08/24 10/08/24 05:00 History lisinopril 40 mg tablet 40 mg PO QAM 10/02/24 10/07/24 Unknown History metoprolol tartrate 25 mg tablet 12.5 mg PO BID 10/02/24 10/08/24 10/08/24 07:00 History montelukast 10 mg tablet 10 mg PO DAILY 10/02/24 10/07/24 Unknown History rosuvastatin 40 mg tablet 40 mg PO DAILY 10/02/24 10/07/24 Unknown History cetirizine 10 mg capsule (Zyrtec) 10 mg PO DAILY 10/07/24 10/07/24 Unknown History [id number]-[id number] C-Mn 500 2 cap PO HS 10/07/24 10/07/24 Unknown History mg-400 mg capsule indapamide 1.25 mg tablet 1.25 mg PO QAM 10/07/24 10/07/24 Unknown History Allergies Allergy/AdvReac Type Severity Reaction Status Date / Time adhesive tape AdvReac REDNESS, Verified 10/15/24 13:54 SKIN IRRITATION iohexol (From contrast - CT, AdvReac Hives Verified 10/15/24 13:54 X-RAY) Review of Systems 2 Review of Systems: All systems reviewed & are unremarkable except as noted in HPI and below Constitutional: Constitutional: Reports no additional constitutional complaints Eyes: Eyes: Reports no additional eye complaints ENT: Reports system reviewed and no additional complaints, except as documented Cardiovascular: Cardiovascular: Reports as per HPI Respiratory: Respiratory: Reports no additional respiratory complaints Gastrointestinal: Gastrointestinal: Reports no additional gastrointestinal complaints Musculoskeletal: Musculoskeletal: Reports no additional musculoskeletal complaints Integumentary/Breasts: Skin/Breast: Reports system reviewed and no additional complaints, except as docu Neurologic: Reports system reviewed and no additional complaints, except as documented [facility] Past Medical History Medical History CAD (coronary artery disease) High cholesterol History of hypertension Thyroid disease Surgical History Surgical History History of hysteroscopy (10/08/24) Hysteroscopy with uterine curettings/ Hysteroscopic polypectomy H/O thyroidectomy (~06/2022) S/P triple vessel bypass (2018) Family History Family History Mother Heart disease Sibling Acute myocardial infarction, Onset Age: 40 brother COPD (chronic obstructive pulmonary disease) Grandparent COPD (chronic obstructive pulmonary disease) Social History Social History Smoking packs per day: 0.30 Smoking cigarettes per day: 6.0 Years smoked: 15 Smoking pack-years: 4.50 Smoking status: Former smoker Tobacco type: cigarettes Second hand tobacco smoke exposure: No Smoking end date: 06/01/12 Alcohol intake: current Alcohol use details: occassional Substance use: never Substance use type: does not use Do You Feel Safe in your Home?: Yes Lack of Transportation: No Lack of Food: Never True Current Housing: I Have Housing Concerned About Future Housing: No Difficulty Paying Gas/Electric Bills: No Difficulty Paying for Meds: No Currently Unemployed: No Education: High School Diploma/GED Difficulty w/ Childcare or Family Care: No Living arrangements: with family Additional living arrangements comments: SPOUSE Occupation/Education: occupation 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 HEAD: Normocephalic, atraumatic. EYES: PERRLA and EOMI. ENT: Nares clear, no rhinorrhea or epistaxis. Mucous membranes moist. NECK: Supple. CHEST: Clear to auscultation. No respiratory distress. HEART: Regular rate and rhythm. No murmur heard. Normal peripheral pulses. ABDOMEN: Soft, nontender, nondistended, normal active bowel sounds. EXTREMITIES: Normal range of motion. No edema. SKIN: Warm, dry, no rash. NEURO: No focal deficits. Alert and oriented x3. PSYCH: Normal mood and affect. Course Course Emergency Course: Patient remained pain-free while she was here in the ER I did inform her about the lab work comes EKG findings. Advised her to continue home medication recommended her to follow with a blow mold operator at [facility] Vital Signs Vital signs: Vital Signs Temperature 36.6 C 03/07/25 10:56 Pulse Rate 72 03/07/25 10:56 Respiratory Rate 16 03/07/25 10:56 Blood Pressure 150/57 H 03/07/25 10:56 Pulse Oximetry 96 03/07/25 10:56 Oxygen Delivery Room Air 03/07/25 10:56 Temperature 36.6 C 03/07/25 10:56 Pulse Rate 62 03/07/25 13:47 Respiratory Rate 17 03/07/25 13:47 Blood Pressure 114/63 03/07/25 13:01 Pulse Oximetry 95 03/07/25 13:47 Oxygen Delivery Room Air 03/07/25 11:51 MDM - Chest Pain Differential Diagnosis Differential diagnosis: Likely unstable angina pectoris, atypical chest pain and costochondritis Medical Records Data Attestation: I reviewed the patient's medical records. Lab Data Attestation: I reviewed the patient's lab results. 03/07/25 12:02 03/07/25 12:02 Labs: Lab Results 03/07/25 03/07/25 Range/Units 12:02 14:55 WBC 11.4 H (4.5-10.0) K/mm3 RBC 5.37 (4.2-5.4) M/mm3 Hgb 15.7 H (12.0-15.0) g/dL Hct 49.1 H (37.0-47.0) % MCV 91.4 (80-100) fl MCH 29.2 (26-34) pg MCHC 32.0 (32-36) g/dl RDW 14.3 (11.5-14.5) % Plt Count 201 (150-375) k/mm3 MPV 8.9 (7.4-10.4) fl Immature Gran % (Auto) 0.5 (0-0.5) % Neut % (Auto) 68.7 (45.5-73.1) % Lymph % (Auto) 25.4 (18.3-44.2) % [place] % (Auto) 4.4 (2.6-8.5) % Eos % (Auto) 0.6 (0-4.4) % Baso % (Auto) 0.4 (0.2-1.2) % Lymph # (Auto) 2.90 (0.9-3.2) K/mm3 [place] # (Auto) 0.5 (0.1-0.6) K/mm3 Eos # (Auto) 0.1 (0-0.3) K/mm3 Baso # (Auto) 0.0 (0.0-0.1) K/mm3 Abs Immat Gran (auto) 0.06 H (0.00-0.031) K/mm3 Absolute Neuts (auto) 7.8 H (1.3-6.7) K/mm3 Absolute Nucleated RBC 0.000 (0.0-0.012) K/mm3 Nucleated RBC % 0.0 (0.0-0.2) % PT 12.9 (11.1-14.7) Seconds INR 0.9 APTT 29.1 (22.3-36.8) Seconds Sodium 140 (137-145) mmol/L Potassium 4.3 (3.4-5.0) mmol/L Chloride 101 (98-107) mmol/L Carbon Dioxide 28 (22-30) mmol/L Anion Gap 11 (4-12) mmol/L BUN 19 H (7-17) mg/dL Creatinine 0.77 (0.7-1.0) mg/dL Estim Creat Clear Calc 75 ml/min Estimated GFR > 60 (59 - ) Glucose 190 H (65-110) mg/dL Calcium 9.1 (8.4-10.2) mg/dL Total Bilirubin 0.6 (0.2-1.3) mg/dL AST 23 (14-36) U/L ALT 23 (6-35) U/L Alkaline Phosphatase 68 (38-126) U/L Troponin I < 0.012 < 0.012 (0.000-0.034) ng/mL Total Protein 7.0 (6.3-8.2) g/dL Albumin 4.3 (3.5-5.1) g/dL Lipase 33 (23-300) U/L Imaging Data Radiologist's impression: ITS Impressions Chest X-Ray 03/07/25 11:28 IMPRESSION: No acute cardiopulmonary pathology. ECG Data EKG #1: ECG completion date: 03/07/25 ECG completion time: 10:55 EKG Interpretation: normal rate (69), no ectopy, normal QRS and RBBB Discharge Plan Discharge Clinical Impression: Chest pain Qualifiers: Chest pain type: unspecified Qualified Code(s): R07.9 - Chest pain, unspecified Patient Disposition: Home, Self-Care Condition: Stable Instructions: Chest Pain (ED) Additional Instructions: Continue home medications, follow-up with your blow mold operator and [facility] Patient Language: Palestinian Prescriptions: No Action lisinopril 40 mg tablet 40 mg PO QAM metoprolol tartrate 25 mg tablet 12.5 mg PO BID rosuvastatin 40 mg tablet 40 mg PO DAILY montelukast 10 mg tablet 10 mg PO DAILY aspirin 325 mg tablet 325 mg PO DAILY levothyroxine 150 mcg tablet 150 mcg PO DAILY icosapent ethyl [Vascepa] 1 gram capsule 2 g PO BID cholecalciferol (vitamin D3) 50 mcg (2,000 unit) capsule See Rx Instructions .ROUTE .COMPLEX Patient Comments: 4000 UNITS M-W-F, 2000 UNITS [id number] Rx Instructions: 4000 UNITS M-W-F, 2000 UNITS [id number] C-Mn 500-400 mg Capsule 2 cap PO HS Zyrtec 10 mg Capsule 10 mg PO DAILY indapamide 1.25 mg tablet 1.25 mg PO QAM ibuprofen 400 mg tablet 400 mg PO Q6H Qty: 20 0RF nitrofurantoin monohyd/m-cryst [Macrobid] 100 mg capsule 100 mg PO Q12H Qty: 14 0RF Rx Instructions: must administer with a meal/food Follow-up/Referrals: Wilner,MD Álvaro [Primary Care Provider] - Time of Disposition: 15:58
== END 2025-03-07 16:05 | disposition home or self-care (01) ==
PROVIDERS: Emergency Medicine; Emergency Provider Family Medicine; PCP Internal Medicine
DX: R07.89 Other chest pain (principal); Z79.82 Long term (current) use of aspirin; I25.10 Atherosclerotic heart disease of native coronary artery without angina pectoris
CPT/HCPCS: 36415; 71046; 80053; 83690; 84484; 85025; 85610; 85730; 93005; 99284; A9270